=== PATIENT | female | born 1960 | race Caucasian/White ===

== ENCOUNTER 2021-09-06 11:38 | Outpatient (CLI) | payer MEDICAID, SELFPAY ==
[2021-09-06 12:28] LABS: Absolute Lymphocyte Count 1.45 X10^3/uL (0.83-4.51); Absolute Neutrophil Count 5.4 X10^3/uL (2.0-7.7); Basophil# 0.04 X10^3/uL; Basophil% 0.5 % (0-1); Eosinophil# 0.23 X10^3/uL; Hematocrit 37.6 % (37-47); Hemoglobin 12.6 g/dL (12.0-15.0); Lymphocyte # 1.45 X10^3/ul (0.83-4.51); Mean Corp Hgb Conc 33.5 g/dL (32-36); Mean Corpuscular Hgb 30.6 pg (27.0-32.0); Mean Corpuscular Volume 91.3 fL (81-99); Mean Platelet Vol. 10.4 fl (6.2-12.0); Monocyte# 0.45 X10^3/uL; Monocyte% 5.9 % (0-10); NRBC Flagged by Analyzer 0 % (0-5); Neutrophil # 5.44 X10^3/uL (2.7-7.7); Neutrophil % 71.2 % (47-70); Platelet Count 166 K/mm3 (150-450); RBC Distribution Width CV 12.5 % (11.6-14.6); RBC Distribution Width SD 41.5 fl (35.1-43.9); Red Blood Count 4.12 M/mm3 (4.2-5.4); White Blood Count 7.6 K/mm3 (4.4-11.0)
[2021-09-06 12:55] LABS: International Normalized Ratio 0.9; Prothrombin Time (Protime)PT. 11.9 SECONDS (11.7-14.9)
[2021-09-06 13:00] LABS: ALB/GLOB Ratio 0.8 RATIO (0.9-2.4); AST(SGOT) 7 U/L (15-37); Alanine Aminotransfer ALT/SGPT 14 U/L (13-56); Albumin, Serum 3.4 g/dL (3.2-5.0); Alkaline Phosphatase 195 U/L (45-117); Anion Gap 6 (5-15); BUN 18 mg/dL (7-18); BUN/Creat Ratio 20.2 RATIO (10-20); Calcium,Total 9.4 mg/dL (8.5-10.1); Chloride 105 mmol/L (98-107); Creatinine, Serum 0.89 mg/dL (0.55-1.02); EST Glomerular Filtration Rate 68 mL/min (>60); Est Glom Filt Rate - Afr Amer 83 mL/min (>60); Globulin 4.5 g/dL (2.2-4.2); Glucose 130 mg/dL (74-106); LDH 162 U/L (84-246); Potassium 3.9 mmol/L (3.5-5.1); Protein, Total 7.9 g/dL (6.4-8.2); Sodium Level 139 mmol/L (136-145)
[2021-09-08 04:08] LABS: Albumin 3.5 g/dL (2.9-4.4); Alpha-1-Globulins 0.3 g/dL (0.0-0.4); Gamma Globulin 1.5 g/dL (0.4-1.8); Immunoglobulin A 452 mg/dL (87-352); Immunoglobulin G 1428 mg/dL (586-1602); Immunoglobulin M 112 mg/dL (26-217); PROEL- TOTAL PROTEIN 7.5 g/dL (6.0-8.5)
[2021-09-08 08:27] LABS: AFP, Tumor Marker 3.1 ng/mL (0.0-9.2); Carbohydrate Ag 19-9 2261 72 U/mL (0-35); Carcinoembryonic Antigen 2139 8.8 ng/mL (0.0-4.7)
== END 2021-09-06 23:59 | disposition home or self-care (01) ==
LOC: LAB 11:40
PROVIDERS: PCP Student in an Organized Health Care Education/Training Program; Referring Provider Internal Medicine Gastroenterology; Visit Provider Internal Medicine Gastroenterology
DX: R16.0 Hepatomegaly, not elsewhere classified (principal)
CPT/HCPCS: 36415; 80053; 82105; 82378; 82784; 83615; 84165; 85025; 85610; 86300; 86301; 86304; 86334

== ENCOUNTER → 2021-09-13 | Outpatient (CLI) | payer MEDICAID, SELFPAY ==
[2021-09-13] VITALS (13 sets, daily range): BP systolic 132–219; BP diastolic 60–103; PULSE 74–109; RESP 16–29; TEMP 36.3; O2SAT 93–99; BMI 32.8
--- NOTE | 2021-09-13 | IMM_PTH ---
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 Mateo Randhawa DO : 1960 BED: DIS: 09/13/2021 SPEC #: [id number] RECD: 09/14/21 12:47 STATUS: MARI REQ #: [id number] SMILEY: 09/13/21 00:[address]: Mateo Randhawa DEPT: IMMUNOHISTOCHEMISTRY RECD BY: Doris Dawn ENTERED: 09/14/21 12:49 SP TYPE: IMMUNO OTHR DR: Dr. Calin Devries DO Tissues: Liver, NOS Procedures: RCC (add) MSH2 (add) MLH-1 (add) MSH6 (add) Anti-PMS2 (add) NAPSIN A (add) CA-125 (add) CK20 (add) CK5-6 (add) CK7 (add) CK8 (add) DIAZ-2 (add) E-CAD (add) HEP PAR (add) HER2 KARIE (add) KI-67 (add) MAMM (add) P53 (add) HI (add) TTF1 (add) Pankeratin (add) GATA3 (add) P40 (add) CDX2 (add) ER (initial) PHYSICIAN & [place] [id number] SPECIMEN INFORMATION: Tissue Source: Left lobe of liver Clinical Info: Liver mass Specimen Number: [id number] CPT code: 00531, 31131 x24 METHODOLOGY: Deparaffinized sections of prefer/formalin-fixed tissue or PAP/DQ stained slides are incubated with monoclonal/polyclonal antibodies/oligonucleotide probes. Localization is made via biotin free immunoperoxidase method. Appropriate controls are performed and reacted as expected. Results on target cell population are indicated in the following table: RESULTS: ANTIBODY / CLONE RESULT ER (6F11) negative HI (1E2) negative Her-2neu (CB11) negative E-Cad (ECH-6) positive Mammaglobin (31A5) negative GATA3 (L50-823) negative AE1-3 (AE1/AE3/PCK26) positive CK7 (OV-TL12/30) positive CK8 (87rmzwC39) positive CK20 (KS20.8) negative DIAZ-2 (SP21) positive CDX2 (IUQ5789L) negative TTF-1 (8G7G3/1) negative Napsin A (Rabbit Polyclonal) negative HepPar (OCh1E5) negative RCC (PN-15) negative CK5-6 (D5 & 1684) positive P40 (BC28) positive CA125 (OC125) positive Ki-67 (30-9) positive, low These tests were developed and their performance characteristics determined by [facility]. They may not have been cleared or approved by the U.S. Food and Drug Administration. The FDA has determined that such clearance or approval is not necessary. The above immunohistochemical/dualISH markers are ordered and reviewed by the Pathologist. INTERPRETATION: Liver mass, CT-guided core biopsy: Non-small cell carcinoma, favor adenocarcinoma with squamous differentiation. See comment. SJ:rg 09/15/2021 Comment: IHC profile is non-contributory for primary site of origin. Case has been reviewed in consultation with Dr. Joiner who concurs with the above diagnosis. IDC:AM ADDENDUM ADDENDUM ADDENDUM ADDENDUM ADDENDUM ADDENDUM ADDENDUM ADDENDUM ADDENDUM ADDENDUM ADDENDUM ADDENDUM ADDENDUM ADDENDUM ADDENDUM ADDENDUM ADDENDUM ADDENDUM 10/06/2021 10:29 ADDENDUM 10/06/2021 10:29 ADDENDUM 10/06/2021 10:29 ADDENDUM 10/06/2021 10:29 ADDENDUM 10/06/2021 10:29 ANTIBODY / CLONE RESULT Her-2neu (CB11) negative (0) MLH-1 (M1) positive MSH2 (25D12) positive MSH6 (44) positive PMS2 (JPN4833) positive Ki-67 (30-9) positive, low P53 (DO-7) positive, weak, ~15% The above immunohistochemical/dualISH markers are ordered by Dr. Godfrey and reviewed by the pathologist. Liver mass, CT-guided core biopsy: Result of Microsatellite Instability Study: Negative (no loss of mismatch protein; no microsatellite instability detected). SJ:juan a 10/06/2021
[2021-09-13 08:26] LABS: Platelet Count 194 K/mm3 (150-450)
[2021-09-13 08:56] LABS: International Normalized Ratio 0.9; Prothrombin Time (Protime)PT. 12.3 SECONDS (11.7-14.9)
[2021-09-13 08:57] LABS: Partial Thromboplast Time 25.1 Seconds (24.1-36.2)
--- NOTE | 2021-09-13 10:40 | CT_ITS ---
PROCEDURE: Percutaneous CT-guided biopsy of left lobe of the liver mass biopsy. DATE OF EXAMINATION: 09/13/2021 INDICATION: 60-year-old female with a low attenuation ill-defined lesion in the left lobe of the liver. PHYSICIAN: Geena Rhoades MD RADIATION DOSAGE (If Supplied By Facility): CTDIvol = (22.12) mGy, DLP = (1201.72) mGycm CONSENT: The risks, benefits and alternatives to the procedure were explained to the patient, and the patient agreed to the procedure and signed the consent. SEDATION: Versed 2 mg and Fentanyl 100 mcg intravenous. ZOFRAN 4 mg intravenous. STERILE BARRIER TECHNIQUE: The following sterile barrier precautions were used during the procedure: hand hygiene; use of 2% chlorhexidine aseptic; use of a cap, mask, sterile gown, sterile gloves, sterile full body drape, and a large sterile sheet. PROCEDURE/TECHNIQUE: (All elements of maximal sterile barrier technique followed, including US elements as applicable) The risks, benefits, and alternatives to the procedure were explained to patient, and the patient agreed to the procedure and signed a consent form for the procedure. The patient was placed supine on the CT scan table. A timeout was performed to confirm the patient''s identity, the type of procedure, to be performed and the site of entry. Contiguous axial CT scanner images of the liver were obtained and the low-attenuation lesion in the left lobe of the liver was identified. Access site was marked on the patient''s skin after which the overlying skin was prepared in standard, sterile fashion. The skin was anesthetized with 2% lidocaine and a small skin incision was made. Under CT fluoroscopic guidance a 17-gauge coaxial introducer needle was intermittently advanced into the mass. An 18 gauge coaxial core biopsy needle was then inserted through the needle and 2 core biopsy specimens were obtained and evaluated by the pathologist on site, 2 additional core biopsy specimens were obtained, placed in formalin and sent to the lab for analysis. Gelfoam embolization of the biopsy site and access tract was performed after which the access needle was removed and sterile dressing was applied. Follow-up evaluation demonstrated no evidence of complications. The patient tolerated the procedure well with no immediate complications and was transferred to recovery in stable condition. CT/Biopsy/Inj or Needle Placement IMPRESSION: Technically successful percutaneous CT guided liver mass biopsy, Four 18-gauge core biopsy specimens obtained and sent to lab for analysis. Electronically Signed: Richi Rhoades MD at 11:52 EDT ,
[2021-09-13] MEDS: Midazolam 2 MG/2 ML Syringe IV ×2 (10:46→11:15)
[2021-09-13] MEDS: fentaNYL 100 MCG/2 ML Ampul IV ×2 (10:47→11:17)
--- NOTE | 2021-09-13 11:00 | ASPIGT_PTH ---
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 Mateo Randhawa DO : 1960 BED: DIS: 09/13/2021 SPEC #: [id number] RECD: 09/13/21 11:30 STATUS: MARI ROBERTO #: [id number] SMILEY: 09/13/21 11:[address]: Mateo Randhawa DEPT: SURGICAL PATHOLOGY RECD BY: Beatriz Francois ENTERED: 09/13/21 12:00 SP TYPE: ASP RAD OT DR: Dr. Calin Devries DO Tissues: Liver, NOS Procedures: FNA Specimen Adequacy Special Stain Group II Surgery Specimen Level IV Imprint (control) Cytology Other HEADER OPERATION: CT-guided liver biopsy PRE-OP DIAGNOSIS: Liver mass TISSUE SUBMITTED: Left lobe liver 18-gauge core x4 MICROSCOPIC DIAGNOSIS Liver mass, CT-guided core biopsy: Non-small cell carcinoma, favor adenocarcinoma with squamous differentiation. See comment. FEDERICO:juan a 09/14/2021 COMMENT The specimen is evaluated at the time of biopsy by Dr. Zhong. Immediate Evaluation = Atypical cells noted. Immunohistochemistry ([id number]) supports the above diagnosis and noncontributory for primary site of origin. Correlation with clinical, radiologic findings and appropriate follow up are necessary. This case was reviewed and diagnosis discussed with Dr. Godfrey on 10/04/2021. Case has been reviewed in consultation with Dr. Joiner who concurs with the above diagnosis. IDC:AM MICROSCOPIC DESCRIPTION Slides are reviewed. GROSS DESCRIPTION Received in fixative is one container labeled with the patient's name and designated liver mass biopsy. The specimen consists of four elongated fragments of greene soft tissue measuring 1.5 to 2 cm in length and 0.1 cm in diameter. The specimen is totally submitted in one cassette. Two touch imprints are prepared at the time of core biopsy. / FEDERICO:juan a 09/13/2021 TC:0 CPT: 16952, 40602
[2021-09-13] MEDS: Lidocaine 2% (20 ml mdv) 20 ML Vial INFILT (11:05)
[2021-09-13] MEDS: Ondansetron 4 MG/2 ML Vial IV (11:20)
== END | disposition home or self-care (01) ==
LOC: CT 08:15
PROVIDERS: PCP Student in an Organized Health Care Education/Training Program; Referring Provider Internal Medicine Gastroenterology; Visit Provider Internal Medicine Gastroenterology
DX: C22.9 Malignant neoplasm of liver, not specified as primary or secondary (principal); K74.3 Primary biliary cirrhosis; F17.200 Nicotine dependence, unspecified, uncomplicated
CPT/HCPCS: 47000; 36415; 77012; 85049; 85610; 85730; 88161; 88172; 88305; 88313; 88341; 88342; 99156; 99157; J7040; A4216; J2405

== ENCOUNTER 2021-10-05 12:55 | Inpatient (IN) | payer MEDICAID, SELFPAY ==
[2021-10-05] VITALS (7 sets, daily range): BP systolic 116–125; BP diastolic 61–66; PULSE 93–120; RESP 16–22; TEMP 36.7–38.2; O2SAT 93–96; BMI 33.3; BMI 31.2
--- NOTE | 2021-10-05 13:37 | EDS_ITS ---
HPI History of Present Illness Chief Complaint: Confusion Narrative Narrative: 61-year-old female presenting with her daughter because her daughter feels that she is weaker than usual. Her daughter states that she seems a little disoriented. She states her mother is not getting up and moving as much as she should. She is sitting in a chair and seems to be falling asleep. The patient herself has a history of liver cancer. She has seen Dr. Randhawa and they did obtain a CT-guided biopsy. She is seen by Dr. Godfrey as well. She is supposed to get imaging in the next couple of weeks and then on the they will determine whether or not they are going to do surgery to remove this mass. The patient states that the mass is either inside or outside the liver. She states that the mass is outside the liver they would not be able to do surgery. Patient reports that she had a little bit of abdominal pain because she was constipated secondary to Zofran but has had bowel movements. She has been able to eat small amounts. She denies fever or chills. She is currently not nauseous. Her daughter reports that her mother seems a little bit more yellow than usual. 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 Cirrhosis Hypothyroidism Schizophrenia Smoker Home Medications atorvastatin 40 mg PO QHS 01/11/15 [History Last Taken 09/12/21] carbamazepine 200 mg PO BIDCM 01/11/15 [History Last Taken 04/07/15 04:30 200 MG] cholecalciferol (vitamin D3) 10,000 unit PO DAILY 01/11/15 [History Last Taken Unknown] ibuprofen 400 mg PO Q6H PRN PRN 01/11/15 [History Last Taken Unknown] latanoprost 1 drp EACH EYE QHS 01/11/15 [History Last Taken Unknown] levothyroxine 175 mcg PO MOTUWETHFR 01/11/15 [History Last Taken 04/07/15 04:30 150 MCG] topiramate 25 mg PO QHS 01/11/15 [History Last Taken Unknown] acidophilus-sporogenes [Acidophilus Ex Str (L. sporog)] 1 tab PO DAILY 09/13/21 [History Last Taken Unknown] benztropine 0.5 mg PO DINNER 09/13/21 [History Last Taken Unknown] benztropine 1 mg PO DAILY 09/13/21 [History Last Taken Unknown] oxybutynin chloride 10 mg PO DINNER 09/13/21 [History Last Taken Unknown] pantoprazole 40 mg PO DAILY 09/13/21 [History Last Taken Unknown] potassium chloride 20 meq PO TID 09/13/21 [History Last Taken Unknown] ziprasidone HCl 20 mg PO BID 09/13/21 [History Last Taken Unknown] ziprasidone HCl 80 mg PO BIDCM 09/13/21 [History Last Taken Unknown] levothyroxine 87.5 mcg PO SUSA 10/05/21 [History Last Taken Unknown] mirtazapine 15 mg PO QHS PRN 10/05/21 [History Last Taken Unknown] morphine [MS Contin] 15 mg PO Q12H PRN 10/05/21 [History Last Taken Unknown] promethazine 25 mg PO Q6H PRN 10/05/21 [History Last Taken Unknown] sennosides [senna] 8.6 mg PO BID 10/05/21 [History Last Taken Unknown] ursodiol 500 mg PO BID 10/05/21 [History Last Taken Unknown] Allergy/AdvReac Type Severity Reaction Status Date / Time codeine AdvReac Other Verified 10/05/21 12:56 naproxen [From Naprosyn] AdvReac Other Verified 01/10/17 23:06 Surgical History History of cholecystectomy Social History household members: none housing: apartment Smoking Status: Former smoker ROS ROS ED ROS Narrative Generalized fatigue Constitutional Constitutional ED: Denies chills or fever(s) Eyes Eyes: Reports other Details: Scleral icterus ; Denies blurry vision ENT ENT ED: Denies rhinorrhea or sore throat Cardiovascular Cardiovascular: Denies chest pain or palpitations Respiratory/Chest Respiratory/Chest: Denies cough or dyspnea Gastrointestinal Gastrointestinal: Denies abdominal pain, constipation or nausea Musculoskeletal Musculoskeletal: Denies back pain or neck pain Integumentary Reports other Details: Jaundice ; Denies rash Neurologic Neurologic: Denies headache(s) or weakness Psychiatric Psychiatric: Denies anxiety or depression EXAM Physical Exam Const Vital Signs: 10/05/21 12:56 10/05/21 13:07 10/05/21 13:09 Temperature 100.8 F H 99.6 F H Temperature Source Temporal Temporal Pulse Rate 120 H Respiratory Rate 18 Respiratory Effort Normal Non-Labored Respiratory Pattern Normal Blood Pressure 118/65 Blood Pressure Mean 82 Pulse Ox 93 Oxygen Delivery Method Room Air 10/05/21 15:45 Temperature 98.2 F Temperature Source Oral Pulse Rate 103 H Respiratory Rate 22 H Respiratory Effort Respiratory Pattern Blood Pressure 117/61 Blood Pressure Mean 79 Pulse Ox 93 Oxygen Delivery Method Room Air Positive obese General Appearance ED: NAD; Negative for pallor Nutritional Appearance: obese HEENT Reports moist mucous membranes Negative for trauma Eyes PERRL and EOMs intact bilaterally General Eye ED: Yes scleral icterus Neck supple Resp normal respiratory effort and clear to auscultation bilaterally Cardio regular rate GI normal to inspection, nondistended, normoactive bowel sounds Extremity normal to inspection General Extremety ED: Negative for edema or tenderness General Extremity: Negative for edema Neuro oriented x3 and CN's II-XII intact bilaterally Sensorium / Orientation: alert Psych mental status grossly normal Skin no rashes or lesions noted and no wounds General Skin Exam: jaundice; Negative for pallor MDM MDM MDM Narrative Medical decision making narrative: Patient presenting with generalized weakness. She has no specific complaints other than feeling tired. Her daughter reports she is more jaundiced and has more scleral icterus. She has concerned that she is confused although she is alert and oriented x3. Initial temperature was 100.8 temporally however her oral temperature was 99 6. Repeat oral temperature was 98 2. She received nothing for fever. Patient slightly tachycardic on arrival. Her heart rate is down to 103. Her CBC shows that she has no significant leukocytosis. Her white blood cell count is 10.7. Hemoglobin is down to 10.7. Hematocrit 31.9. Platelets 105. Both her anemia and thrombocytopenia are new. INR is normal. The patient's total bilirubin is elevated at 12.60, direct bilirubin 10.12, AST 94, ALT 63, alkaline phosphatase 974. I discussed the patient's case with Dr. Randhawa who had concern for portal vein thrombosis worsening her symptoms. He recommended the CTA of the abdomen pelvis to see if there were dilated biliary ducts. After discussion we determined we would do a CTA of the chest abdomen pelvis as the patient has cancer and is tachycardic. He does not report any chest pain. Dr. Randhawa also wanted to cover her with vancomycin and Zosyn which was ordered. His CTA of the abdomen pelvis shows a heterogeneous appearance of the liver with dilated intrahepatic biliary ducts. Mass lesion seen in the left lobe of liver which was recently biopsied. No evidence of a aortic dissection or pulmonary emboli. I spoke with Dr. Hanson and Dr. Friend. He wants to get an MRCP and possibly do an ERCP in the hospital. Patient discussed with hospitalist for admission. Impression: 1. Cholangiocarcinoma 2. Transaminitis 3. Hyperammonemia 4. Anemia 5. Thrombocytopenia 6. Jaundice 7. Scleral icterus 8. Generalized weakness Lab Data Attestation: I reviewed the patient's lab results. Labs: Laboratory Results - last 24 hr 10/05/21 10/05/21 10/05/21 13:40 13:40 13:40 WBC 10.7 RBC 3.51 L Hgb 10.7 L Hct 31.9 L MCV 90.9 MCH 30.5 MCHC 33.5 RDW Std Deviation 47.2 H RDW Coeff of Russell 14.1 Plt Count 105 L MPV 10.6 Immature Gran % (Auto) 0.500 Neut % (Auto) 86.2 H Lymph % (Auto) 3.9 L [place] % (Auto) 9.2 Eos % (Auto) 0.0 Baso % (Auto) 0.2 Absolute Neuts (auto) 9.2 H Absolute Lymphs (auto) 0.42 L Nucleated RBC % 0 Differential Comment Platelet Estimate SLT DEC RBC Morphology NORM C+C PT INR Sodium 132 L Potassium 3.8 Chloride 100 Carbon Dioxide 23.0 Anion Gap 9 BUN 17 Creatinine 1.03 H Estim Creat Clear Calc 46.85 Est GFR (MDRD) Af Amer 70 Est GFR (MDRD) Non-Af 58 L BUN/Creatinine Ratio 16.5 Glucose 155 H Calcium 9.3 Total Bilirubin 12.60 H Direct Bilirubin 10.12 H AST 94 H ALT 63 H Alkaline Phosphatase 974 H Ammonia 44.0 H Total Protein 7.6 Albumin 2.0 L Globulin 5.6 H Lipase 41 L Urine Color Urine Clarity Urine pH Ur Specific [place] Urine Protein Urine Glucose (UA) Urine Ketones Urine Occult Blood Urine Nitrite Urine Bilirubin Urine Urobilinogen Ur Leukocyte Esterase Urine RBC Urine WBC Ur Squamous Epith Cells Urine Bacteria Urine Mucus 10/05/21 10/05/21 13:40 15:00 WBC RBC Hgb Hct MCV MCH MCHC RDW Std Deviation RDW Coeff of Russell Plt Count MPV Immature Gran % (Auto) Neut % (Auto) Lymph % (Auto) [place] % (Auto) Eos % (Auto) Baso % (Auto) Absolute Neuts (auto) Absolute Lymphs (auto) Nucleated RBC % Differential Comment Platelet Estimate RBC Morphology PT 17.6 H INR 1.5 Sodium Potassium Chloride Carbon Dioxide Anion Gap BUN Creatinine Estim Creat Clear Calc Est GFR (MDRD) Af Amer Est GFR (MDRD) Non-Af BUN/Creatinine Ratio Glucose Calcium Total Bilirubin Direct Bilirubin AST ALT Alkaline Phosphatase Ammonia Total Protein Albumin Globulin Lipase Urine Color Ashley Urine Clarity Sl. Cloudy Urine pH 6.5 Ur Specific [place] 1.010 Urine Protein 30 H Urine Glucose (UA) Normal Urine Ketones 5 H Urine Occult Blood 25 H Urine Nitrite Negative Urine Bilirubin 6 H Urine Urobilinogen 8 H Ur Leukocyte Esterase 25 H Urine RBC 0 SEEN Urine WBC 10-25 SEEN Ur Squamous Epith Cells 0-5 SEEN Urine Bacteria 1+ Urine Mucus 0 SEEN Radiography Diagnostic Testing: Clinical Impression(s) from Imaging Studies Chest/Abdomen/Pelvis CTA 10/05/21 15:30 IMPRESSION: Heterogeneous appearance of the liver with dilated intrahepatic biliary ducts. Mass lesion seen in the left lobe of liver which was recently biopsied. No evidence of a aortic dissection. Electronically Signed: Jaxon Vera MD at 15:54 EDT , Discharge Plan Triage Chief Complaint: Confusion ED Provider: Alex Sanderson Dx/Rx/DC Orders Prescriptions: No Action latanoprost 1 DROP bottle 1 drp Each Eye QHS RF: 0 atorvastatin 80 MG tablet 40 mg PO QHS RF: 0 topiramate 25 MG tablet 25 mg PO QHS RF: 0 carbamazepine 200 MG tablet 200 mg PO BIDCM RF: 0 levothyroxine 150 MCG tablet 175 mcg PO MOTUWETHFR RF: 0 ibuprofen 200 MG tablet 400 mg PO Q6H PRN PRN (Reason: Mod-Severe (Pain Scale 6-10)) RF: 0 cholecalciferol (vitamin D3) 5,000 UNIT capsule 10,000 unit PO DAILY RF: 0 ziprasidone HCl 80 mg Capsule 80 mg PO BIDCM RF: 0 benztropine 0.5 mg Tablet 0.5 mg PO DINNER RF: 0 ziprasidone HCl 20 mg Capsule 20 mg PO BID RF: 0 pantoprazole 40 mg Tablet,Delayed Release (Dr/Ec) 40 mg PO DAILY RF: 0 benztropine 1 mg Tablet 1 mg PO DAILY RF: 0 oxybutynin chloride 5 mg Tablet Extended Release 24hr 10 mg PO DINNER RF: 0 Acidophilus Ex Str (L. sporog) 35 million- 25 million cell Tablet 1 tab PO DAILY RF: 0 potassium chloride 20 mEq Tablet Extended Release 20 meq PO TID RF: 0 levothyroxine 175 mcg Tablet 87.5 mcg PO SUSA RF: 0 sennosides [senna] 8.6 mg Tablet 8.6 mg PO BID RF: 0 promethazine 25 mg Tablet 25 mg PO Q6H PRN (Reason: Nausea) RF: 0 morphine [MS Contin] 15 mg Tablet Extended Release 15 mg PO Q12H PRN (Reason: Pain) RF: 0 mirtazapine 15 mg Tablet 15 mg PO QHS PRN (Reason: Insomnia) RF: 0 ursodiol 500 mg Tablet 500 mg PO BID RF: 0 Primary Care Provider: Calin Devries
[2021-10-05 13:59] LABS: Absolute Lymphocyte Count 0.42 X10^3/uL (0.83-4.51); Absolute Neutrophil Count 9.2 X10^3/uL (2.0-7.7); Basophil# 0.02 X10^3/uL; Basophil% 0.2 % (0-1); Hematocrit 31.9 % (37-47); Hemoglobin 10.7 g/dL (12.0-15.0); Lymphocyte # 0.42 X10^3/ul (0.83-4.51); Lymphocyte % 3.9 % (19-41); Mean Corp Hgb Conc 33.5 g/dL (32-36); Mean Corpuscular Hgb 30.5 pg (27.0-32.0); Mean Corpuscular Volume 90.9 fL (81-99); Mean Platelet Vol. 10.6 fl (6.2-12.0); Monocyte# 0.98 X10^3/uL; Monocyte% 9.2 % (0-10); NRBC Flagged by Analyzer 0 % (0-5); Neutrophil # 9.23 X10^3/uL (2.7-7.7); Neutrophil % 86.2 % (47-70); POSITIVE DIFFERENTIAL YES; Platelet Count 105 K/mm3 (150-450); RBC Distribution Width CV 14.1 % (11.6-14.6); RBC Distribution Width SD 47.2 fl (35.1-43.9); Red Blood Count 3.51 M/mm3 (4.2-5.4); White Blood Count 10.7 K/mm3 (4.4-11.0)
[2021-10-05 14:05] LABS: Differential Indicated SCAN CRITERIA MET
[2021-10-05 14:24] LABS: AST(SGOT) 94 U/L (15-37); Alanine Aminotransfer ALT/SGPT 63 U/L (13-56); Alkaline Phosphatase 974 U/L (45-117); Anion Gap 9 (5-15); BUN 17 mg/dL (7-18); BUN/Creat Ratio 16.5 RATIO (10-20); Bilirubin, Direct 10.12 mg/dL (0.00-0.30); Calcium,Total 9.3 mg/dL (8.5-10.1); Chloride 100 mmol/L (98-107); Creatinine, Serum 1.03 mg/dL (0.55-1.02); EST Glomerular Filtration Rate 58 mL/min (>60); Est Glom Filt Rate - Afr Amer 70 mL/min (>60); Estimated Creatinine Clearance 46.85 ml/min; Globulin 5.6 g/dL (2.2-4.2); Glucose 155 mg/dL (74-106); Lipase 41 U/L (73-393); Potassium 3.8 mmol/L (3.5-5.1); Protein, Total 7.6 g/dL (6.4-8.2); Sodium Level 132 mmol/L (136-145)
[2021-10-05 14:26] LABS: Platelet Estimate SLT DEC (ADEQ)
[2021-10-05 14:27] LABS: Red Cell Morphology NORM C+C NORMAL (NORM C&C)
[2021-10-05 15:11] LABS: Mucous, Urine 0 SEEN /hpf (<or=2+); Red Blood Cells-Urine 0 SEEN /hpf (0-5)
[2021-10-05 15:29] LABS: Color, Urine Amber (Yellow); Glucose, Dipstick Normal (Normal); Ketone-Dipstick 5 mg/dl (Negative); Leukocyte Esterase-Dipstick 25 /ul (Negative); Nitrite-Dipstick Negative (Negative); Occult Blood-Urine 25 /ul (Negative); Protein-Dipstick 30 mg/dl (Negative); Urine Bilirubin Dipstick 6 mg/dL (Negative); Urine Clarity Sl. Cloudy (Clear); Urine Urobilinogen 8 mg/dl (Normal); Urine pH 6.5 (5.0 - 8.0)
--- NOTE | 2021-10-05 15:30 | CT_ITS ---
STUDY: CTA CHEST AND CTA ABDOMEN/PELVIS WITH CONTRAST REASON FOR EXAM: Female, 61 years old. Abdominal pain no new hepatic mass and prior biopsy of the liver. RADIATION DOSAGE (If Supplied By Facility): CTDIvol = ( 14.17 ) mGy, DLP = ( 1090.16 ) mGycm TECHNIQUE: The examination was performed with the intravenous administration of IV 100mL Isovue-370. Post-processing of the angiographic images was performed, with multiplanar reformation and 3D reconstruction. Individualized dose optimization techniques were used for this CT. COMPARISON: No relevant priors. FINDINGS: CTA Chest Normal enhancement of the main pulmonary artery and right and left pulmonary arteries. Normal enhancement of the bilateral peripheral pulmonary arteries. There is no demonstrated pulmonary embolism. There is atherosclerotic calcification of the aortic arch with tortuosity. There is no demonstrated aortic dissection. There are calcifications of the coronary arteries. Normal mediastinum. Normal hilar regions. Normal visualized trachea and bronchi. The lungs are well expanded. Mild degree of increased markings at the lung bases suggestive of either linear atelectasis and/or scarring. Normal pleura. Normal chest wall structures. There are degenerative changes of thoracic spine. CT Abdomen T Pelvis Heterogeneous appearance of the liver. Dilated intrahepatic biliary ducts. Heterogeneous mass with focal calcification in the region of the left lobe of the liver. This measures approximately 3.7 cm x 4.2 sinus. This mass was recently biopsied. The gallbladder is not visualized and most likely secondary to prior cholecystectomy. Normal spleen. Heterogeneous appearance of the pancreas. Normal bilateral adrenal glands. Normal right kidney. Normal left kidney. Normal visualized stomach. Normal small intestine. Moderate amount of fecal material seen in the colon down to the The appendix is visualized and appears normal. There is diffuse atherosclerotic calcification of the abdominal aorta, without a demonstrated aneurysm. Normal inferior vena cava. Normal retroperitoneum. Normal urinary bladder. Normal abdominal wall. There are diffuse degenerative changes of the visualized lumbar spine. CT/CTA Chst, Abd, Pel W and/or WO IMPRESSION: Heterogeneous appearance of the liver with dilated intrahepatic biliary ducts. Mass lesion seen in the left lobe of liver which was recently biopsied. No evidence of a aortic dissection. Electronically Signed: Jaxon Vera MD at 15:54 EDT ,
[2021-10-05 15:33] LABS: International Normalized Ratio 1.5; Prothrombin Time (Protime)PT. 17.6 SECONDS (11.7-14.9)
[2021-10-05 15:48] LABS: Bacteria 1+ /hpf (None Seen); Squamous Epithelial Cells - UA 0-5 SEEN /hpf (5-10); White Blood Cells 10-25 SEEN /hpf (0-5)
--- NOTE | 2021-10-05 17:44 | NURSING ---
MED SURG OBS TERELETSKY TRANSAMINITIS, HYPERAMMONEMIA, LIVER CA
[2021-10-05] MEDS: Lactulose 20 GM/30 ML UDC PO (18:05)
--- NOTE | 2021-10-05 18:17 | PCM.HP.STD ---
Documented by User: MICHAELA Knutson 10/05/21 18:32 HPI - General General Date of Admission: 10/05/21 Date of Service: 10/05/21 Chief Complaint: Jaundice, confusion HPI Narrative KALE STREETER, is a 61 F who presents with complaints of generalized weakness and worsening jaundice. Patient's daughter was also concerned that she appeared confused when she saw her prior to bringing her in the ER. Patient was recently diagnosed with a adenocarcinoma of the liver and is currently going through a work-up with Dr. Godfrey as well as Dr. Randhawa. Patient reports that for history includes bipolar depression, hyperlipidemia, hypothyroidism, GERD, cirrhosis. Patient states that she has had cirrhosis since 2014 and recently started following with Dr. Randhawa as her prior GI physician had retired. Patient states that she has not currently having abdominal pain. 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 Cirrhosis Hypothyroidism Schizophrenia Smoker Home Medications atorvastatin 40 mg PO QHS 01/11/15 [History Last Taken 09/12/21] carbamazepine 200 mg PO BIDCM 01/11/15 [History Last Taken 04/07/15 04:30 200 MG] cholecalciferol (vitamin D3) 10,000 unit PO DAILY 01/11/15 [History Last Taken Unknown] ibuprofen 400 mg PO Q6H PRN PRN 01/11/15 [History Last Taken Unknown] latanoprost 1 drp EACH EYE QHS 01/11/15 [History Last Taken Unknown] levothyroxine 175 mcg PO MOTUWETHFR 01/11/15 [History Last Taken 04/07/15 04:30 150 MCG] topiramate 25 mg PO QHS 01/11/15 [History Last Taken Unknown] acidophilus-sporogenes [Acidophilus Ex Str (L. sporog)] 1 tab PO DAILY 09/13/21 [History Last Taken Unknown] benztropine 0.5 mg PO DINNER 09/13/21 [History Last Taken Unknown] benztropine 1 mg PO DAILY 09/13/21 [History Last Taken Unknown] oxybutynin chloride 10 mg PO DINNER 09/13/21 [History Last Taken Unknown] pantoprazole 40 mg PO DAILY 09/13/21 [History Last Taken Unknown] potassium chloride 20 meq PO TID 09/13/21 [History Last Taken Unknown] ziprasidone HCl 20 mg PO BID 09/13/21 [History Last Taken Unknown] ziprasidone HCl 80 mg PO BIDCM 09/13/21 [History Last Taken Unknown] levothyroxine 87.5 mcg PO SUSA 10/05/21 [History Last Taken Unknown] mirtazapine 15 mg PO QHS PRN 10/05/21 [History Last Taken Unknown] morphine [MS Contin] 15 mg PO Q12H PRN 10/05/21 [History Last Taken Unknown] promethazine 25 mg PO Q6H PRN 10/05/21 [History Last Taken Unknown] sennosides [senna] 8.6 mg PO BID 10/05/21 [History Last Taken Unknown] ursodiol 500 mg PO BID 10/05/21 [History Last Taken Unknown] Allergy/AdvReac Type Severity Reaction Status Date / Time codeine AdvReac Other Verified 10/05/21 12:56 naproxen [From Naprosyn] AdvReac Other Verified 01/10/17 23:06 Surgical History History of cholecystectomy Social History household members: none housing: apartment Smoking Status: Former smoker ROS Constitutional Constitutional: Denies anorexia, chills, fatigue, fever(s), malaise or weakness Eyes Eyes: Reports other Details: Daughter reports increased pleural icterus Cardiovascular Cardiovascular: Denies chest pain, edema, palpitations or syncope Respiratory/Chest Respiratory/Chest: Denies cough, shortness of breath at rest, shortness of breath with exertion or wheezing Gastrointestinal Gastrointestinal: Reports change in bowel habits Genitourinary Genitourinary: Denies dysuria Musculoskeletal Musculoskeletal: Denies back pain, extremity pain, joint pain, joint stiffness or joint swelling Integumentary Integumentary: Reports other Details: Complains of white coating to tongue ; Denies dry skin Neurologic Neurologic: Denies abnormal gait, abnormal speech, confusion or dizziness Psychiatric Psychiatric: Denies anxiety or depression Endocrine Endocrinology: Denies change in body appearance Hematologic/Lymphatic Hematologic/Lymphatic: Denies anemia Vital Signs Vital Signs Vital Signs: 10/05/21 12:56 10/05/21 13:07 10/05/21 13:09 Temperature 100.8 F H 99.6 F H Temperature Source Temporal Temporal Pulse Rate 120 H Respiratory Rate 18 Respiratory Effort Normal Non-Labored Respiratory Pattern Normal Blood Pressure 118/65 Blood Pressure Mean 82 Pulse Ox 93 Oxygen Delivery Method Room Air 10/05/21 15:45 10/05/21 18:07 Temperature 98.2 F 98.2 F Temperature Source Oral Oral Pulse Rate 103 H 103 H Respiratory Rate 22 H 22 H Respiratory Effort Respiratory Pattern Blood Pressure 117/61 117/61 Blood Pressure Mean 79 79 Pulse Ox 93 93 Oxygen Delivery Method Room Air Room Air Weight Weight: 188 lb Body Mass Index (BMI) 33.3 Physical Exam Const alert, oriented x3 and no apparent distress General Appearance: cooperative HEENT normocephalic and head/scalp atraumatic Eyes Sclera: sclera abnormal Positive for bilateral (Icterus) Neck supple General: trachea midline Lymph Lymphatic: no lymphadenopathy noted Resp normal respiratory effort, normal air movement and clear to auscultation bilaterally Cardio regular rate, regular rhythm, S1 normal heart sound, S2 normal heart sound and peripheral pulses 2+ throughout GI soft to palpation Palpation: tender RUQ Extremity normal capillary refill and no clubbing, cyanosis or edema General Extremity: no tenderness to palpation of joints or extremities Skin General Skin Exam: no breakdown and turgor normal Lesions: no lesions Rashes: no rashes Neuro no focal motor deficits and no sensory deficits noted Motor Exam: Negative for general weakness Psych thought process normal, cooperative and affect normal Appearance: appropriate Results Lab / Micro Data Result Diagrams: 10/05/21 13:40 10/05/21 13:40 Labs: Laboratory Results - last 24 hr 10/05/21 13:40: WBC 10.7, RBC 3.51 L, Hgb 10.7 L, Hct 31.9 L, MCV 90.9, MCH 30.5, MCHC 33.5, RDW Std Deviation 47.2 H, RDW Coeff of Russell 14.1, Plt Count 105 L, MPV 10.6, Immature Gran % (Auto) 0.500, Neut % (Auto) 86.2 H, Lymph % (Auto) 3.9 L, Cobb % (Auto) 9.2, Eos % (Auto) 0.0, Baso % (Auto) 0.2, Absolute Neuts (auto) 9.2 H, Absolute Lymphs (auto) 0.42 L, Nucleated RBC % 0, Differential Comment , Platelet Estimate SLT DEC, RBC Morphology NORM C+C 05/11/22 13:40: Sodium 132 L, Potassium 3.8, Chloride 100, Carbon Dioxide 23.0, Anion Gap 9, BUN 17, Creatinine 1.03 H, Estim Creat Clear Calc 46.85, Est GFR (MDRD) Af Amer 70, Est GFR (MDRD) Non-Af 58 L, BUN/Creatinine Ratio 16.5, Glucose 155 H, Calcium 9.3, Total Bilirubin 12.60 H, Direct Bilirubin 10.12 H, AST 94 H, ALT 63 H, Alkaline Phosphatase 974 H, Total Protein 7.6, Albumin 2.0 L, Globulin 5.6 H, Lipase 41 L 10/05/21 13:40: Ammonia 44.0 H 10/05/21 13:40: PT 17.6 H, INR 1.5 10/05/21 15:00: Urine Color Ashley, Urine Clarity Sl. Cloudy, Urine pH 6.5, Ur Specific Markham 1.010, Urine Protein 30 H, Urine Glucose (UA) Normal, Urine Ketones 5 H, Urine Occult Blood 25 H, Urine Nitrite Negative, Urine Bilirubin 6 H, Urine Urobilinogen 8 H, Ur Leukocyte Esterase 25 H, Urine RBC 0 SEEN, Urine WBC 10-25 SEEN, Ur Squamous Epith Cells 0-5 SEEN, Urine Bacteria 1+, Urine Mucus 0 SEEN Radiology Impression Chest/Abdomen/Pelvis CTA 10/05/21 15:30 IMPRESSION: Heterogeneous appearance of the liver with dilated intrahepatic biliary ducts. Mass lesion seen in the left lobe of liver which was recently biopsied. No evidence of a aortic dissection. Electronically Signed: Jaxon Vera MD at 15:54 EDT , Assessment & Plan Assessment/Plan (1) Liver mass: (2) Hyperbilirubinemia: (3) Hyperammonemia: PLAN: 1. Chronic cirrhosis with known liver adenocarcinoma, primary versus metastatic -Admit to [facility] -Consult Dr. Randhawa, case discussed with him by ER physician -MRCP and ERCP ordered per Dr. Randhawa's instruction -CBC CMP and PT/INR ordered daily -Regular diet, n.p.o. at midnight for pending procedure with Dr. Randhawa -Case management consulted as liver adenocarcinoma is a recent diagnosis -We will continue patient's ursodiol at this time -We will continue patient's pain medication regimen including ibuprofen and morphine at this time 2. Hyperbilirubinemia -MRCP and ERCP ordered -CMP daily 3. Hyperammonemia -Patient received lactulose 20 g p.o. x1 in ER -We will recheck ammonia in a.m. 4. Bipolar disorder -We will continue patient's home medication regimen including benztropine, carbamazepine, mirtazapine, topiramate, ziprasidone as patient is currently stable on these medications 5. Hypothyroidism -Continue levothyroxine 6. Hyperlipidemia -Continue atorvastatin 7. Overactive bladder -Continue oxybutynin DVT prophylaxis-SCDs, will hold off on pharmacological prophylaxis pending probable ERCP This patient was seen by Alise Pisano NP-C under the supervision of Dr. Edgar. 31 minutes spent in clinical coordination of patient's plan of care. Documented by User: Dr. 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 Cirrhosis Hypothyroidism Schizophrenia Smoker Home Medications atorvastatin 40 mg PO QHS 01/11/15 [History Last Taken 09/12/21] carbamazepine 200 mg PO BIDCM 01/11/15 [History Last Taken 04/07/15 04:30 200 MG] cholecalciferol (vitamin D3) 10,000 unit PO DAILY 01/11/15 [History Last Taken Unknown] ibuprofen 400 mg PO Q6H PRN PRN 01/11/15 [History Last Taken Unknown] latanoprost 1 drp EACH EYE QHS 01/11/15 [History Last Taken Unknown] levothyroxine 175 mcg PO MOTUWETHFR 01/11/15 [History Last Taken 04/07/15 04:30 150 MCG] topiramate 25 mg PO QHS 01/11/15 [History Last Taken Unknown] acidophilus-sporogenes [Acidophilus Ex Str (L. sporog)] 1 tab PO DAILY 09/13/21 [History Last Taken Unknown] benztropine 0.5 mg PO DINNER 09/13/21 [History Last Taken Unknown] benztropine 1 mg PO DAILY 09/13/21 [History Last Taken Unknown] oxybutynin chloride 10 mg PO DINNER 09/13/21 [History Last Taken Unknown] pantoprazole 40 mg PO DAILY 09/13/21 [History Last Taken Unknown] potassium chloride 20 meq PO TID 09/13/21 [History Last Taken Unknown] ziprasidone HCl 20 mg PO BID 09/13/21 [History Last Taken Unknown] ziprasidone HCl 80 mg PO BIDCM 09/13/21 [History Last Taken Unknown] levothyroxine 87.5 mcg PO SUSA 10/05/21 [History Last Taken Unknown] mirtazapine 15 mg PO QHS PRN 10/05/21 [History Last Taken Unknown] morphine [MS Contin] 15 mg PO Q12H PRN 10/05/21 [History Last Taken Unknown] promethazine 25 mg PO Q6H PRN 10/05/21 [History Last Taken Unknown] sennosides [senna] 8.6 mg PO BID 10/05/21 [History Last Taken Unknown] ursodiol 500 mg PO BID 10/05/21 [History Last Taken Unknown] Allergy/AdvReac Type Severity Reaction Status Date / Time codeine AdvReac Other Verified 10/05/21 12:56 naproxen [From Naprosyn] AdvReac Other Verified 01/10/17 23:06 Surgical History History of cholecystectomy Social History household members: none housing: apartment Smoking Status: Former smoker Results Lab / Micro Data Result Diagrams: 10/05/21 13:40 10/05/21 13:40 Charges/Coding Addendum Addendum: Patient was seen and examined independently of Geno Pisano today, she came to the emergency room today at [facility] after being brought in by her daughter with complaints of intermittent confusion today, patient has been diagnosed with adenocarcinoma in her liver, she had a biopsy of this neoplasm in August of this year and she is due to follow-up with oncology regarding treatment. It is not clear if this is a primary liver cancer or a metastatic adenocarcinoma from another site. On examination she appeared in good health and spirits, she does not appear to be in any distress, patient does not appear to be confused. Vital signs as documented. Skin warm and dry and without overt rashes, patient is jaundiced. Neck without JVD, thyroid appears normal, trachea is midline, neck is supple. Lungs clear, normal air movement was noted. Heart exam notable for regular rhythm, normal sounds and absence of murmurs, rubs or gallops. Abdomen unremarkable and without evidence of organomegaly, masses, or abdominal aortic enlargement, bowel sounds are present in all 4 quadrants, no abdominal tenderness was noted. Extremities nonedematous, no cyanosis was noted, no clubbing was noted. Neuro: Cranial nerves II through XII are grossly intact, no focal motor deficits were noted, sensation to light touch and pinprick is intact, motor exam 5/5 throughout. Psych: Patient is alert and oriented x3, she does not appear anxious or depressed, she does not appear agitated. This examiner did not find the patient to be confused. Lab was obtained in the emergency room, CBC was abnormal for hemoglobin of 10.7 and a platelet count of 105,000, patient's chemistry profile showed a creatinine of 1.03, sodium of 132, and glucose of 155. Patient's liver functions were abnormal showing a bilirubin of 12.6, direct bilirubin of 10.12, AST of 94, ALT of 63, alkaline phosphatase of 974, and the patient's ammonia level was 44. Urinalysis showed 10-25 WBCs and +1 bacteria. CTA of the chest abdomen and pelvis was performed which showed a heterogeneous appearance of the liver with dilated intrahepatic biliary ducts, there was a mass lesion seen in the left lobe of the liver which measured approximately 3.7 cm x 4.2 cm. Gallbladder was not visualized secondary to prior cholecystectomy. Impression: #1 flareup of chronic cirrhosis-patient will be admitted to [facility], she will be placed on IV antibiotics, patient will undergo an MRCP and then will ultimately undergo an ERCP during this admission, gastroenterology will see the patient in consultation #2 obstructive jaundice-etiology unclear at this point, again patient will undergo an MRCP and an ERCP and be seen by gastroenterology. #3 adenocarcinoma of the liver-etiology unclear, primary versus metastatic spread, further work-up will need to be carried out on this patient #4 nonalcoholic steatohepatitis-chronic, with known cirrhosis #5 hyperlipidemia-patient is currently on atorvastatin #6 bipolar disorder-patient's medications will be continued #7 hypothyroidism-patient is on Synthroid I have reviewed Geno Pisano's history and physical including her medical assessment and plan of care and with the above additions endorse it. Total clinical time spent by myself addressing the patient's medical issues, reviewing the patient's data, and collaborating with the patient's care team: 50 minutes Visit Charges Inpatient E&M: 65180 Init Hosp L3
--- NOTE | 2021-10-05 18:20 | MRI_ITS ---
We are attempting to reach an attending provider to discuss findings. An addendum with communication details will be sent when the communication is complete. EXAM: MR ABDOMEN WITHOUT INTRAVENOUS CONTRAST, MRCP PROTOCOL CLINICAL INDICATION: Liver mass TECHNIQUE: Multiplanar and multisequence MR images of the abdomen without intravenous contrast obtained with MRCP sequence. Three-dimensional post-processing reconstructions were performed. This report was created using [employer] report generation technology. COMPARISON: CTA chest, abdomen and pelvis the same day. Described a recently biopsied mass in the left lobe of the liver. The ERCP report from April 07, 2013 describes beaded ducts similar to prior exam. Intraoperative limited exam January 18, for laparoscopic cholecystectomy mentions suggestion of sclerosing cholangitis. Distended and hypodense appearance of main portal vein on the comparison CTA. Early phase CTA exam. FINDINGS: LOWER THORAX: Unremarkable. No pleural effusion. LIVER: There are dilated intrahepatic ducts, central left hepatic duct roughly 9 mm and multiple dilated branches in the dome of the liver and central liver with irregular contour, some narrowing and dilatation distally, confirmed on correlation with prior CT the same day. Complex appearance of the periportal region and extending into the left lobe with altered signal intensity, highly suspicious for infiltrative mass involving the jeremy and at least left periportal region and main portal vein. Estimated infiltrative mass of roughly 8.8 cm craniocaudal by 6.9 cm involving the periportal region of the liver as measured on the coronal spoiled gradient echo images but this would be better evaluated by enhanced MRI with liver or pancreas protocol. GALLBLADDER AND BILE DUCTS: The common duct is not clearly seen on the CT or MRI-MRCP. PANCREAS: See above. SPLEEN: Mild hepatosplenomegaly, the right lobe is 19.8 cm in length. Borderline splenomegaly, spleen 13.8 cm craniocaudal. ADRENALS: Unremarkable. No nodules. KIDNEYS AND URETERS: Unremarkable. Normal renal size and position. No hydronephrosis. INTRAPERITONEAL SPACE: Unremarkable. No ascites or other fluid collection. VASCULATURE: There is no visible patent main portal vein on the MRI, there is some flow related signal in SMV branches and in splenic vein branch but presumed main portal vein thrombosis and/or infiltration by neoplasm. LYMPH NODES: No enlarged lymph nodes. MRI/MRCP Abdomen without Contrast IMPRESSION: 1. Exam limited to MRCP without contrast. 2. Mild hepatosplenomegaly. 3. Suspected infiltrative mass in the jeremy and left lobe of the liver with dilated and beaded ducts again noted. 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 4. 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 It is not demonstrated to be patent at the jeremy or near the pancreas. It is also retrospectively appears likely occluded on the CTA earlier today, with hypodense appearance of the main portal vein and central portal vein branches as compared to the isodense splenic vein on the CTA. Electronically Signed: Abbi Frederick MD at 21:14 EDT ,
--- NOTE | 2021-10-05 19:40 | PCM.RX.CS ---
Consult Pharmacy has been consulted to manage selected antiobiotic: Vancomycin Type of Consult: New start Suspected Infection: Other Labs: Sodium 132 mmol/L (136-145) L 10/05/21 13:40 Potassium 3.8 mmol/L (3.5-5.1) 10/05/21 13:40 Chloride 100 mmol/L (98-107) 10/05/21 13:40 Carbon Dioxide 23.0 mmol/L (21.0-32.0) 10/05/21 13:40 Anion Gap 9 (5-15) 10/05/21 13:40 BUN 17 mg/dL (7-18) 10/05/21 13:40 Creatinine 1.03 mg/dL (0.55-1.02) H 10/05/21 13:40 Est GFR (MDRD) Af Amer 70 mL/min (>60) 10/05/21 13:40 Est GFR (MDRD) Non-Af 58 mL/min (>60) L 10/05/21 13:40 BUN/Creatinine Ratio 16.5 RATIO (10-20) 10/05/21 13:40 Glucose 155 mg/dL (74-106) H 10/05/21 13:40 Goal Trough: 15-20 mcg/mL Pharmacy Plan for Drug Dosing: NEW START IV VANCOMYCIN Consulting Physician: Primitivo Pisano NP Indication: Goal Trough: 15-20 SrCr: 1.03 CrCl: 47 mL/min Comments: Had 1250mg IV x in ED 10/05/21 @1605 Vancomcyin Dose: 750mg IV Q12h to start 10/06/21 @0400 Pending Level: 10/07/21 @0330, prior to 4th total dose per protocol Pharmacy Service will continue to monitor and adjust dosing as required.
--- NOTE | 2021-10-05 21:30 | PCM.HOSP.N ---
Hospitalist Note Notified by Otoniel GRIFFIN that patient's MRCP results demonstrate main portal vein occlusion. Patient planned for ERCP with Dr. Randhawa tomorrow. Dr. Randhawa notified of findings.
[2021-10-05] MEDS: Ursodiol 250 MG Tablet 500 MG PO (21:40)
[2021-10-05] MEDS: Ziprasidone HCl 20 MG Capsule PO (21:40)
[2021-10-05] MEDS: Atorvastatin Calcium 40 MG Tablet PO (21:41)
[2021-10-05] MEDS: Potassium Chloride Oral Tablet 20 MEQ PO (21:41)
[2021-10-05] MEDS: Topiramate 25 MG Tablet PO (21:42)
[2021-10-05] MEDS: Latanoprost 0.005% 1 Bottle 1 DRP EACH EYE (21:42)
[2021-10-05] MEDS: 0.9% Saline Lock 10 ML Syringe IV (21:48)
[2021-10-06] VITALS (12 sets, daily range): BP systolic 115–168; BP diastolic 61–82; PULSE 89–107; RESP 16–18; TEMP 36.5–37.7; O2SAT 92–100; BMI 31.2
--- NOTE | 2021-10-06 | IMM_PTH ---
PATIENT: KALE STREETER LOC: MS3 U#:[id number] AGE/SX: 61/F ROOM: DE324 RE10/05/[address]: Dr. Lesvia Marrero MD : 1960 BED: 1 DIS: 10/11/2021 SPEC #: [id number] RECD: 10/07/21 12:32 STATUS: MARI REQ #: [id number] SMILEY: 10/06/21 00:[address]: Mateo Randhawa DEPT: IMMUNOHISTOCHEMISTRY RECD BY: Doris Dawn ENTERED: 10/07/21 12:34 SP TYPE: IMMUNO OTHR DR: MD Dr. Indra Bran, MD Dr. Calin Nathan Dr., MD Dr. Raudel Zhang Dr., MD Dr. Mark Tereletsky, DO Dr. Kory Hanson, Tissues: Biliary tract, NOS Procedures: RCC (add) NAPSIN A (add) CA-125 (add) CEA (add) CK14 (add) CK20 (add) CK5-6 (add) CK7 (add) CK8 (add) WERNER (add) HEP PAR (add) KI-67 (add) P53 (add) KY (add) TTF1 (add) Pankeratin (add) GATA3 (add) P40 (add) CDX2 (add) ER (initial) S-100 (add) PHYSICIAN & INSTITUTION [facility] [address] [place], [place] [address] SPECIMEN INFORMATION: Tissue Source: Biliary stricture, biopsy Clinical Info: Liver mass, primary biliary cirrhosis Specimen Number: [id number] CPT code: 17630, 75017 x20 METHODOLOGY: Deparaffinized sections of prefer/formalin-fixed tissue or PAP/DQ stained slides are incubated with monoclonal/polyclonal antibodies/oligonucleotide probes. Localization is made via biotin free immunoperoxidase method. Appropriate controls are performed and reacted as expected. Results on target cell population are indicated in the following table: RESULTS: ANTIBODY / CLONE RESULT ER (6F11) negative KY (1E2) negative GATA3 (L50-823) negative AE1-3 (AE1/AE3/PCK26) positive CK7 (OV-TL12/30) positive CK8 (87mksyJ60) positive, focal CK20 (KS20.8) negative CDX2 ([id number]) negative S-100 (4C4.9) negative TTF-1 (8G7G3/1) negative Napsin A (Rabbit Polyclonal) negative HepPar (OCh1E5) negative RCC (PN-15) negative CK5-6 (D5 & 1684) positive CK14 (LL002) positive P40 (BC28) positive WERNER (E29) positive CEA (11-7/TF-3HB-1) positive, focal CA125 (OC125) positive, rare cells P53 (DO-7) positive, 20% Ki-67 (30-9) positive, >90% These tests were developed and their performance characteristics determined by [facility]. They may not have been cleared or approved by the U.S. Food and Drug Administration. The FDA has determined that such clearance or approval is not necessary. The above immunohistochemical/dualISH markers are ordered and reviewed by the Pathologist. INTERPRETATION: Biliary stricture, biopsy: Invasive non-small cell carcinoma with extensive squamous differentiation. AM:juan a 10/10/2021 Case has been reviewed in consultation with Dr. Zhong who concurs with the above diagnosis. IDC:[id number]
[2021-10-06] MEDS: proMETHazine 25 MG Tablet PO (03:46)
[2021-10-06] MEDS: morphine SR 15 MG Tablet PO ×2 (03:49→21:34)
--- NOTE | 2021-10-06 06:00 | EKG12_ITS ---
Test Reason : AM EKG Blood Pressure : / mmHG Vent. Rate : 088 BPM Atrial Rate : 088 BPM P-R Int : 134 ms QRS Dur : 080 ms QT Int : 382 ms P-R-T Axes : 055 021 044 degrees QTc Int : 462 ms Normal sinus rhythm Normal ECG Confirmed by KHUSHI CRAWFORD, DESTINEE ([id number]), editorial writer XOCHITL WAGGONER ([id number]) on 10/06/2021 1:05:49 PM Referred By: MANJIT Confirmed By:DESTINEE PURI MD
[2021-10-06] MEDS: 0.9% Saline Lock 10 ML Syringe IV ×2 (06:10→16:26)
[2021-10-06 06:22] LABS: Absolute Lymphocyte Count 0.68 X10^3/uL (0.83-4.51); Absolute Neutrophil Count 5.4 X10^3/uL (2.0-7.7); Basophil# 0.01 X10^3/uL; Basophil% 0.1 % (0-1); Eosinophil# 0.03 X10^3/uL; Eosinophils% 0.4 % (0-5); Hematocrit 29.1 % (37-47); Hemoglobin 9.6 g/dL (12.0-15.0); Lymphocyte # 0.68 X10^3/ul (0.83-4.51); Lymphocyte % 9.9 % (19-41); Mean Corpuscular Hgb 30.5 pg (27.0-32.0); Mean Corpuscular Volume 92.4 fL (81-99); Mean Platelet Vol. 11.4 fl (6.2-12.0); Monocyte# 0.74 X10^3/uL; Monocyte% 10.7 % (0-10); NRBC Flagged by Analyzer 0 % (0-5); Neutrophil % 78.3 % (47-70); POSITIVE COUNT YES; Platelet Count 94 K/mm3 (150-450); RBC Distribution Width CV 14.3 % (11.6-14.6); RBC Distribution Width SD 48.3 fl (35.1-43.9); Red Blood Count 3.15 M/mm3 (4.2-5.4); White Blood Count 6.9 K/mm3 (4.4-11.0)
--- NOTE | 2021-10-06 06:40 | RAD_ITS ---
STUDY: ERCP. REASON FOR EXAM: Female, 61 years old. W/ SPY GLASS -- FATS FLUOROSCOPY TIME (if supplied): ( 4 minutes and 48 seconds ) minutes/seconds. 12 images were submitted. TECHNIQUE: An ERCP was performed by the network systems analyst. Imaging was obtained. COMPARISON: None. FINDINGS: Contrast was injected into the common bile duct. A balloon catheter is seen within the duct. A stent was then placed. RAD/ERCP Biliary Only IMPRESSION: Stent placement. Electronically Signed: Jaxon Vera MD at 14:46 EDT ,
[2021-10-06 06:47] LABS: International Normalized Ratio 1.7; Prothrombin Time (Protime)PT. 19.9 SECONDS (11.7-14.9)
[2021-10-06 06:58] LABS: ALB/GLOB Ratio 0.4 RATIO (0.9-2.4); AST(SGOT) 97 U/L (15-37); Alanine Aminotransfer ALT/SGPT 60 U/L (13-56); Albumin, Serum 1.8 g/dL (3.2-5.0); Alkaline Phosphatase 857 U/L (45-117); Anion Gap 7 (5-15); BUN 17 mg/dL (7-18); Calcium,Total 8.9 mg/dL (8.5-10.1); Chloride 103 mmol/L (98-107); Creatinine, Serum 0.77 mg/dL (0.55-1.02); EST Glomerular Filtration Rate 81 mL/min (>60); Est Glom Filt Rate - Afr Amer 98 mL/min (>60); Estimated Creatinine Clearance 68.17 ml/min; Globulin 4.8 g/dL (2.2-4.2); Glucose 113 mg/dL (74-106); Potassium 3.5 mmol/L (3.5-5.1); Protein, Total 6.6 g/dL (6.4-8.2); Sodium Level 134 mmol/L (136-145)
[2021-10-06 07:30] LABS: Magnesium 2.1 mg/dL (1.6-2.6); Phosphorus 2.6 mg/dL (2.5-4.9); Thyroid Stim Hormone (TSH) 0.03 uIU/mL (0.358-3.74)
--- NOTE | 2021-10-06 08:32 | PCM.RX.CS ---
Consult Type of Consult: Follow-up Suspected Infection: Other Labs: Sodium 134 mmol/L (136-145) L 10/06/21 05:43 Potassium 3.5 mmol/L (3.5-5.1) 10/06/21 05:43 Chloride 103 mmol/L (98-107) 10/06/21 05:43 Carbon Dioxide 24.0 mmol/L (21.0-32.0) 10/06/21 05:43 Anion Gap 7 (5-15) 10/06/21 05:43 BUN 17 mg/dL (7-18) 10/06/21 05:43 Creatinine 0.77 mg/dL (0.55-1.02) 10/06/21 05:43 Est GFR (MDRD) Af Amer 98 mL/min (>60) 10/06/21 05:43 Est GFR (MDRD) Non-Af 81 mL/min (>60) 10/06/21 05:43 BUN/Creatinine Ratio 22.0 RATIO (10-20) H 10/06/21 05:43 Glucose 113 mg/dL (74-106) H 10/06/21 05:43 Goal Trough: 15-20 mcg/mL Pharmacy Plan for Drug Dosing: VANCOMYCIN LEVEL RECEIVED Current Vancomycin Dose: 750mg Q12H Number of Doses Received: 2 Renal Function: sCr 0.77 (CrCl 68 mL/min) Renal Function Trend: improved Lab/Micro: pending Vancomycin Plan/Comments: Adjust Vancomycin dosing regimen to 1000mg Q12H (next dose @ 1600 10/06/21) Pending Level: Vancomycin trough @ 0330 10/07/21 Pharmacy Service will continue to monitor and adjust dosing as required. Labs to be done on [date and time ordered]: Vancomycin trough @ 0330 10/07/21
[2021-10-06 10:30] LABS: T4 Free Direct 2.03 ng/dL (0.76-1.46)
[2021-10-06 10:39] LABS: Partial Thromboplast Time 31.1 Seconds (24.1-36.2)
--- NOTE | 2021-10-06 11:00 | CASEMGMT ---
Social Work SW received referral from physician for diagnosis support. SW met with pt and dgt Modesta in room and introduced self and role of SW. Pt is laying in bed sleepy. Does open eyes to talk to SW and states she is very groggy after morphine. Pt does states her daughter has been very supportive of her and then pt doses off. SW spoke with pt dgt. Pt received new cancer diagnosis on SundayOctober 03. Per dgt, pt has had custodial liver issues and has not been feeling well since January. Dgt states pt is stubborn and did not seek medical treatment right away. Pt does live alone but dgt and sister live local. Pt is , is able to state that Modesta is very supportive of her. Modesta states pt does have a son but his is not engaged with pt. Modesta also states that pts sister and boyfriend are very supportive and assist pt with transportation to appointments and whatever else she may need. Modesta is and confirms her is also supportive and helpful. Modesta stating appointments have been set up for a PET scan and a follow up with Dr. Godfrey to discuss treatment plan. SW will remain available to offer support to pt when she is more awake. FLORIN Oliver
--- NOTE | 2021-10-06 11:08 | PN.HOSP_ITS ---
Documented by User: Darrell ZHENG 10/06/21 11:49 Subjective Subjective Patient is a 61-year-old female alert and oriented x3. Still with lethargy and diffuse jaundice, although confusion seems to have improved, per daughter. Does not appear to be in acute distress. Objective Data Objective Data Vital Signs: Vital Signs Temp Pulse Resp BP Pulse Ox 99.3 F H 89 16 115/64 92 10/06/21 09:07 10/06/21 09:07 10/06/21 09:07 10/06/21 09:07 10/06/21 09:07 Oxygen Delivery Method Room Air Weight: 187 lb 13.341 oz Body Mass Index (BMI) 31.2 Intake & Output: Intake and Output for Last 24 Hours 10/04/21 10/05/21 10/06/21 23:59 23:59 23:59 Intake Total 339.25 / 739.25 786 / 786 Balance 339.25 / 739.25 786 / 786 Lab / Micro Data Result Diagrams: 10/06/21 05:43 10/06/21 05:43 Labs: Laboratory Results - last 24 hr 10/05/21 13:40: WBC 10.7, RBC 3.51 L, Hgb 10.7 L, Hct 31.9 L, MCV 90.9, MCH 30.5, MCHC 33.5, RDW Std Deviation 47.2 H, RDW Coeff of Russell 14.1, Plt Count 105 L, MPV 10.6, Immature Gran % (Auto) 0.500, Neut % (Auto) 86.2 H, Lymph % (Auto) 3.9 L, Marengo % (Auto) 9.2, Eos % (Auto) 0.0, Baso % (Auto) 0.2, Absolute Neuts (auto) 9.2 H, Absolute Lymphs (auto) 0.42 L, Nucleated RBC % 0, Differential Comment , Platelet Estimate SLT DEC, RBC Morphology NORM C+C 10/05/21 13:40: Sodium 132 L, Potassium 3.8, Chloride 100, Carbon Dioxide 23.0, Anion Gap 9, BUN 17, Creatinine 1.03 H, Estim Creat Clear Calc 46.85, Est GFR (MDRD) Af Amer 70, Est GFR (MDRD) Non-Af 58 L, BUN/Creatinine Ratio 16.5, Glucose 155 H, Calcium 9.3, Total Bilirubin 12.60 H, Direct Bilirubin 10.12 H, AST 94 H, ALT 63 H, Alkaline Phosphatase 974 H, Total Protein 7.6, Albumin 2.0 L , Globulin 5.6 H, Lipase 41 L 10/05/21 13:40: Ammonia 44.0 H 10/05/21 13:40: PT 17.6 H, INR 1.5 10/05/21 15:00: Urine Color Ashley, Urine Clarity Sl. Cloudy, Urine pH 6.5, Ur Specific Oglesby 1.010, Urine Protein 30 H, Urine Glucose (UA) Normal, Urine Ketones 5 H, Urine Occult Blood 25 H, Urine Nitrite Negative, Urine Bilirubin 6 H, Urine Urobilinogen 8 H, Ur Leukocyte Esterase 25 H, Urine RBC 0 SEEN, Urine WBC 10-25 SEEN, Ur Squamous Epith Cells 0-5 SEEN, Urine Bacteria 1+, Urine Mucus 0 SEEN 10/06/21 05:43: WBC 6.9, RBC 3.15 L, Hgb 9.6 L, Hct 29.1 L, MCV 92.4, MCH 30.5, MCHC 33.0, RDW Std Deviation 48.3 H, RDW Coeff of Russell 14.3, Plt Count 94 L, MPV 11.4, Immature Gran % (Auto) 0.600, Neut % (Auto) 78.3 H, Lymph % (Auto) 9.9 L, Marengo % (Auto) 10.7 H, Eos % (Auto) 0.4, Baso % (Auto) 0.1, Absolute Neuts (auto) 5.4, Absolute Lymphs (auto) 0.68 L, Nucleated RBC % 0 10/06/21 05:43: PT 19.9 H, INR 1.7 10/06/21 05:43: Sodium 134 L, Potassium 3.5, Chloride 103, Carbon Dioxide 24.0, Anion Gap 7, BUN 17, Creatinine 0.77, Estim Creat Clear Calc 68.17, Est GFR (MDRD) Af Amer 98, Est GFR (MDRD) Non-Af 81, BUN/Creatinine Ratio 22.0 H, Glucose 113 H, Calcium 8.9, Total Bilirubin 11.60 H, AST 97 H, ALT 60 H, Alkaline Phosphatase 857 H, Total Protein 6.6, Albumin 1.8 L, Globulin 4.8 H, Albumin/Globulin Ratio 0.4 L 10/06/21 05:43: Ammonia 60.0 H 10/06/21 05:43: Phosphorus 2.6, Magnesium 2.1, TSH 0.03 L 10/06/21 05:43: Free T4 2.03 H, Free T3 pg/dL 1.0 L 10/06/21 10:18: APTT 31.1 Micro: Microbiology 10/06/21 08:55 Nasal Secretion SARS-CoV-2 Antigen (Rapid) - Final Radiography Diagnostic Testing: Radiology Impression Chest/Abdomen/Pelvis CTA 10/05/21 15:30 IMPRESSION: Heterogeneous appearance of the liver with dilated intrahepatic biliary ducts. Mass lesion seen in the left lobe of liver which was recently biopsied. No evidence of a aortic dissection. Electronically Signed: Jaxon Vera MD at 15:54 EDT , MRCP 10/05/21 18:20 IMPRESSION: 1. Exam limited to MRCP without contrast. 2. Mild hepatosplenomegaly. 3. Suspected infiltrative mass in the jeremy and left lobe of the liver with dilated and beaded ducts again noted. 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 4. 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 It is not demonstrated to be patent at the jeremy or near the pancreas. It is also retrospectively appears likely occluded on the CTA earlier today, with hypodense appearance of the main portal vein and central portal vein branches as compared to the isodense splenic vein on the CTA. Electronically Signed: Abbi Frederick MD at 21:14 EDT , ADDENDUM: 10/05/21 9698 IMPRESSION: 1. Exam limited to MRCP without contrast. 2. Mild hepatosplenomegaly. 3. Suspected infiltrative mass in the jeremy and left lobe of the liver with dilated and beaded ducts again noted. 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 4. 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 It is not demonstrated to be patent at the jeremy or near the pancreas. It is also retrospectively appears likely occluded on the CTA earlier today, with hypodense appearance of the main portal vein and central portal vein branches as compared to the isodense splenic vein on the CTA. N.B. : The above Results were Read Back by Abbi Frederick MD to Otoniel Truong RN, RN, and understanding confirmed on 10/05/2021 21:30:19 (ET). Electronically Signed: Abbi Frederick MD at 21:14 EDT , Physical Exam Const alert, oriented x3 and no apparent distress HEENT head/scalp atraumatic and moist oral mucous membranes Head and Scalp: normocephalic Eyes PERRL and EOMs intact bilaterally Eyes Narrative: Jaundice bilaterally. Neck no lymphadenopathy, supple and no JVD Resp normal respiratory effort, no retractions and no use of accessory muscles Cardio regular rate, regular rhythm and no JVD GI normal to inspection, nondistended, normoactive bowel sounds and soft to palpation Extremity normal to inspection and full ROM Skin Skin Narrative: Diffuse jaundice throughout body, no palmar erythema or telangiectasias noted. Neuro CN's II-XII intact bilaterally Psych affect normal Assessment & Plan Assessment/Plan (1) Liver mass: (2) Primary biliary cirrhosis: (3) Hyperbilirubinemia: (4) Hyperammonemia: PLAN: Day 1 Discharge planning: To be determined. 1) liver cirrhosis with adenocarcinoma Unclear if primary or metastatic at this time. MRCP obtained on 10/05 demonstrated mild hepatosplenomegaly, suspected infiltrative mass in the jeremy hepatic and left lobe, as well as portal vein thrombosis. Patient to undergo ERCP today. GI, general surgery and hematology/oncology have been consulted. We will continue to trend CBC, CMP and PT/INR. Continue ursodiol supportive medications. 2) hyperbilirubinemia Patient still with significant jaundice throughout. Total bilirubin still 11.6. Plan; as above. 3) hyperammonemia Ammonia currently 60. Patient to undergo ERCP today, will initiate lactulose pending GI recommendations. 4) bipolar disorder Continue benztropine, carbamazepine, mirtazapine, topiramate and ziprasidone 5) hypothyroidism Continue Synthroid. 6) hyperlipidemia Continue statin. 7) overactive bladder Continue oxybutynin. 8) GERD Continue PPI. DVT prophylaxis-SCDs, will hold off on pharmacological prophylaxis pending ERCP Patient seen by Darrell Mosqueda PA-C, under the supervision of Dr. Clarke. Time spent on patient care: 10 minutes. Documented by User: Dr. Indra Clarke, 10/06/21 12:24 Subjective Subjective Per dtr, more alert, but not at baseline Objective Data Lab / Micro Data Result Diagrams: 10/06/21 05:43 10/06/21 05:43 Physical Exam Const alert, oriented x3 and no apparent distress HEENT HEENT Narrative: icterus Head and Scalp: normocephalic Resp normal respiratory effort, no retractions, no use of accessory muscles and clear to auscultation bilaterally Cardio regular rate, regular rhythm, S1 normal heart sound and S2 normal heart sound GI normal to inspection, nondistended, normoactive bowel sounds, soft to palpation, non-tender and non-distended Extremity normal to inspection Extremity Narrative: no palmar erythema. Neuro Neuro Narrative: no asterixis. Sensorium / Orientation: awake and alert Psych affect normal Assessment & Plan Assessment/Plan (1) Decompensated hepatic cirrhosis: PLAN: Patient seen and examined independently. Data and vitals reviewed. I agree with the above note by the physician resident assistant cna. Decompensated cirrhosis: Concern is for possibly obstructive jaundice due to possible primary biliary cirrhosis or other process. Discussed with Dr. Randhawa, plan is for ERCP today. Portal vein thrombosis: Patient likely require anticoagulation but will hold off at this point given the pending procedure. Dr. Randhawa did request oncology's input. Did discuss case with Dr. Hanson. Liver mass: adenocarcinoma. Oncology on consult. Greater than 35 minutes reviewing data, discussing with specialists, discussing with pt and dtr. Charges/Coding Visit Charges Inpatient E&M: 99845 Subs Hosp L3
--- NOTE | 2021-10-06 11:30 | FLU_PTH ---
PATIENT: KALE STREETER LOC: MS3 U#:[id number] AGE/SX: 61/F ROOM: [facility] [place] RE10/05/[address]: Dr. Lesvia Marrero MD : 1960 BED: 1 DIS: 10/11/2021 SPEC #: [id number] RECD: 10/06/21 13:16 STATUS: MARI REQ #: [id number] SMILEY: 10/06/21 11:[address]: Mateo Randhawa DEPT: CYTOLOGY RECD BY: Beatriz Francois ENTERED: 10/06/21 13:45 SP TYPE: Fluid OTHR DR: MD Dr. Indra Bran, DO MD Dr. Calin Morin, DO MD Dr. Raudel Lopes MD Dr. Mark Tereletsky, DO Dr. Kory Hanson, Tissues: A - Bile duct, NOS B - Bile duct, NOS Procedures: Special Stain Group II Surgery Specimen Level IV Cytospin Fluid Comments: @ Ordering doctor for SSII edited from to @ by ROXANN at 10/06/21 1506 @ Ordering doctor for SUIV edited from to @ by RGOJONATHAN at 10/06/21 1506 @ Ordering doctor for CYSPIN edited from to @ by ROXANN at 10/06/21 1506 @ Submitting doctor edited from to @ by ROXANN at 10/06/21 1506 HEADER OPERATION: ERCP with spyglass PRE-OP DIAGNOSIS: Liver mass, primary biliary cirrhosis TISSUE SUBMITTED: A ? Bile duct aspirate, B ? Post Spybite biopsy, bile duct aspirate DIAGNOSIS CYTOLOGY A. Aspiration, bile duct (cytospin and cell block): Negative for malignant cells. Acute inflammation. B. Bile duct aspiration, post biopsy (cytospin and cell block): Negative for malignant cells. Acute inflammation. AM:juan a 10/07/2021 COMMENT Please refer to corresponding surgical case [id number]. Case has been reviewed in consultation with Dr. Zhong who concurs with the above diagnosis. IDC:SJ CYTOLOGY STUDY Slides are reviewed. CYTOLOGY GROSS A - Received is 7.5 ml of greene, cloudy fluid labeled with the patient's name and and designated per the requisition as bile duct aspirate. Submitted for cytology preparation including cell block. B - Received is 10 ml of light pink, mucoidy, cloudy fluid labeled with the patient's name and and designated per the requisition as post Spybite biopsy, bile duct aspirate. Submitted for cytology preparation including cell block. / juan a 10/06/2021 TC:2 CPT: 59995 x2, 89444 x2
--- NOTE | 2021-10-06 11:30 | MISC_PTH ---
PATIENT: KALE STREETER LOC: MS3 U#:[id number] AGE/SX: 61/F ROOM: [facility] [place] RE10/05/[address]: Dr. Lesvia Marrero MD : 1960 BED: 1 DIS: 10/11/2021 SPEC #: [id number] RECD: 10/06/21 13:16 STATUS: MARI REJohnny #: [id number] SMILEY: 10/06/21 11:[address]: Mateo Randhawa DEPT: SURGICAL PATHOLOGY RECD BY: Beatriz Francois ENTERED: 10/06/21 13:46 SP TYPE: MISC OTHR DR: MD Dr. Indra Bran, MD Dr. Calin Nathan Dr., MD Dr. Raudel Zhang Dr., MD Dr. Mark Tereletsky, DO Dr. 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 See comment. AM:juan a 10/07/2021 COMMENT Immunohistochemistry ([id number]) supports the above diagnosis. Please refer to corresponding cytology case [id number]. Reference is made to the patient?s previous CT guided liver biopsy with a diagnosis of Non-small cell carcinoma with squamous differentiation. Case has been reviewed in consultation with Dr. Zhong who concurs with the above diagnosis. IDC:FEDERICO MICROSCOPIC DESCRIPTION Slides are reviewed. GROSS DESCRIPTION Received in fixative is one container labeled with the patient's name and designated biopsy biliary stricture by Navarro. The specimen consists of multiple irregular fragments of light greene soft tissue that in aggregate measure 0.2 x 0.2 x <0.1 cm. The specimen is totally submitted in one cassette. / FEDERICO:juan a 10/06/2021 TC:0 CPT: 61155
--- NOTE | 2021-10-06 11:38 | CASEMGMT ---
Pt is currently off of the floor. RN CM to complete assessment at a later time.
--- NOTE | 2021-10-06 15:23 | CASEMGMT ---
ELIAS ANDRADE Assessment: Face to Face with pt for initial transition planning/care coordination assessment. ELIAS ANDRADE introduced self and role at [facility], pt voices understanding and consents to assessment. Pt is very drowsy, just returned from ERCP. She asks for ELIAS ANDRADE to ask her dtr the assessment questions. Care providers, pharmacy, and demographics verified/updated. Admitting Dx: A on C chronic cirrhosis PCP:[facility] Specialists:Epifanio, onc; Friend, gastro Preferred Pharmacy: [facility] Insurance: [facility] Prescription Benefit: yes LW/HPOA: Pt dtr denies pt having a LW/DPOA and denies need for info regarding AD. LNOK: Modesta Dumont, dtr Living Arrangements: Pt lives alone in a ground level apt with no steps to enter. Pt dtr states pt was I in ADL's up to a few weeks ago. States recently she has been being present when pt bathes for safety. Pt dresses self. Transportation: Pt does not drive. Pt dtr or her sister's boyfriend has been providing transportation. DME/HHC/SNF: Pt has a grab bar in her shower. She does not use AD at home nor have any. Pt dtr denies pt having any previous HHC or SNF stays. Pt dtr asking questions regarding HHC. Answered questions. Will check in with pt tomorrow to discuss. Pt dtr states no further concerns/needs. CM to follow. Advised pt to ask CM if any further question/concerns/needs arise, voices understanding. Pt Goal: TBD Plan: TBD
[2021-10-06] MEDS: Vancomycin IV 1,000 MG/200 ML BAG 200 MG IV (16:26)
--- NOTE | 2021-10-06 16:51 | OP.ERCP_ITS ---
Patient Name: Beronica Vergara Procedure Date: 10/06/2021 10:24 AM Date of : 1960 Age: 61 Procedure: ERCP Indications: Jaundice Providers: Mateo Randhawa DO Medicines: General Anesthesia Patient Profile: This is a 61 year old female. Refer to note in patient chart for documentation of history and physical. Patient has symptoms of acute jaundice. Complications: No immediate complications. Procedure: Pre-Anesthesia Assessment: - Prior to the procedure, a History and Physical was performed, and patient medications and allergies were reviewed. The patient is competent. The risks and benefits of the procedure and the sedation options and risks were discussed with the patient. All questions were answered and informed consent was obtained. Patient identification and proposed procedure were verified by the physician in the pre-procedure area. Mental Status Examination: alert and oriented. Airway Examination: normal oropharyngeal airway and neck mobility. Respiratory Examination: clear to auscultation. CV Examination: normal. Prophylactic Antibiotics: The patient does not require prophylactic antibiotics. Prior Anticoagulants: The patient has taken no previous anticoagulant or antiplatelet agents. ASA Grade Assessment: II - A patient with mild systemic disease. After reviewing the risks and benefits, the patient was deemed in satisfactory condition to undergo the procedure. The anesthesia plan was to use moderate sedation / analgesia (conscious sedation). Immediately prior to administration of medications, the patient was re-assessed for adequacy to receive sedatives. The heart rate, respiratory rate, oxygen saturations, blood pressure, adequacy of pulmonary ventilation, and response to care were monitored throughout the procedure. The physical status of the patient was re-assessed after the procedure. After obtaining informed consent, the scope was passed under direct vision. Throughout the procedure, the patient's blood pressure, pulse, and oxygen saturations were monitored continuously. The duodenoscope was introduced through the mouth, and advanced to the duodenum and used to inject contrast into the bile duct. The ERCP was accomplished without difficulty. The patient tolerated the procedure well. Scope In: 11:42:14 AM Scope Out: 12:52:40 PM Total Procedure Duration Time 1 hour 10 minutes 26 seconds Findings: The medical pathologist film was normal. The esophagus was successfully intubated under direct vision. The scope was advanced to a normal major papilla in the descending duodenum without detailed examination of the pharynx, larynx and associated structures, and upper GI tract. The upper GI tract was grossly normal. The bile duct was deeply cannulated with the short-nosed traction sphincterotome. Contrast was injected. I personally interpreted the bile duct images. Contrast extended to the main bile duct. Opacification of the main bile duct was successful. The maximum diameter of the ducts was 7 mm. The upper third of the main bile duct contained a single localized stenosis 6 mm in length. The common hepatic duct was diffusely dilated, secondary to a stricture. The largest diameter was 5 mm. A straight Roadrunner wire was passed into the biliary tree. A 5 mm biliary sphincterotomy was made with a traction (standard) sphincterotome using ERBE electrocautery. There was no post-sphincterotomy bleeding. The biliary tree was swept with a 12 mm balloon starting at the bifurcation. Mucus was swept from the duct. Debris was swept from the duct. Dilation of the common bile duct with a 10-11-12 mm balloon (to a maximum balloon size of 12 mm) dilator was successful. One 8.5 Fr by 2 cm stent was placed 5 cm into the common bile duct. The stent was in good position. One 7 Fr by 16 cm temporary stent was placed 5 cm into the common bile duct. Bile flowed through the stent. The stent was in good position. Impression: - A single localized biliary stricture was found in the upper third of the main bile duct. The stricture was inflammatory and malignant appearing. - The common hepatic duct was dilated, secondary to a stricture. - A biliary sphincterotomy was performed. - The biliary tree was swept and mucus and debris were found. - Common bile duct was successfully dilated. - One stent was placed into the common bile duct. - One temporary stent was placed into the common bile duct. Procedure Code(s): --- Professional --- 16014, Endoscopic retrograde cholangiopancreatography (ERCP); with placement of endoscopic stent into biliary or pancreatic duct, including pre- and post-dilation and guide wire passage, when performed, including sphincterotomy, when performed, each stent [id number], 59, Endoscopic retrograde cholangiopancreatography (ERCP); with placement of endoscopic stent into biliary or pancreatic duct, including pre- and post-dilation and guide wire passage, when performed, including sphincterotomy, when performed, each stent [id number], Endoscopic retrograde cholangiopancreatography (ERCP); with removal of calculi/debris from biliary/pancreatic duct(s) 23004, Endoscopic catheterization of the biliary ductal system, radiological supervision and interpretation CPT copyright 2017 [employer]. All rights reserved. The codes documented in this report are preliminary and upon salt grinder review may be revised to meet current compliance requirements. Mateo Randhawa DO 10/06/2021 4:50:44 PM This report has been signed electronically. Number of Addenda: 0 Note Initiated On: 10/06/2021 10:24 AM
--- NOTE | 2021-10-06 16:52 | OP.CCLET_ITS ---
10/06/2021 Calni Devries [address] [place] [address] Re : ERCP procedure for Beronica Vergara Dear Dr. Devries This procedure was performed on September. My impressions and recommendations are as follows: Impressions : - A single localized biliary stricture was found in the upper third of the main bile duct. The stricture was inflammatory and malignant appearing. - The common hepatic duct was dilated, secondary to a stricture. - A biliary sphincterotomy was performed. - The biliary tree was swept and mucus and debris were found. - Common bile duct was successfully dilated. - One stent was placed into the common bile duct. - One temporary stent was placed into the common bile duct. Recommendations : My findings are described in the full procedure note, which is enclosed. If I can be of further assistance, please feel free to contact me at . Sincerely, Mateo Randhawa, 10/06/2021 4:50:44 PM This report has been signed electronically.
--- NOTE | 2021-10-06 17:50 | PN_ITS ---
Subjective Subjective Ms. Vergara underwent ERCP today for persistent jaundice. She was discovered to have pus in her bile duct. I suspect this was from liver biopsy and possible seeding into the liver causing a local abscess. A lot of the fluid was drained out. 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 Biopsies were taken and stent was placed however the stent was placed up into the left lobe of the liver and the stricture at this time was not able to be placed in the right lobe of the liver due to swelling and infection Objective Data Objective Data Vital Signs: Vital Signs Temp Pulse Resp BP Pulse Ox 99.0 F 105 H 18 146/67 H 94 10/06/21 14:59 10/06/21 14:59 10/06/21 14:59 10/06/21 14:59 10/06/21 14:59 Oxygen Flow Rate (L/min) 2 Oxygen Delivery Method Nasal Cannula Weight: 187 lb 13.341 oz Body Mass Index (BMI) 31.2 Intake & Output: Intake and Output for Last 24 Hours 10/04/21 10/05/21 10/06/21 23:59 23:59 23:59 Intake Total 339.25 / 739.25 1036 / 1036 Balance 339.25 / 739.25 1036 / 1036 Lab / Micro Data Result Diagrams: 10/06/21 05:43 10/06/21 05:43 Labs: Laboratory Results - last 24 hr 10/06/21 05:43: WBC 6.9, RBC 3.15 L, Hgb 9.6 L, Hct 29.1 L, MCV 92.4, MCH 30.5, MCHC 33.0, RDW Std Deviation 48.3 H, RDW Coeff of Russell 14.3, Plt Count 94 L, MPV 11.4, Immature Gran % (Auto) 0.600, Neut % (Auto) 78.3 H, Lymph % (Auto) 9.9 L, [place] % (Auto) 10.7 H, Eos % (Auto) 0.4, Baso % (Auto) 0.1, Absolute Neuts (auto) 5.4, Absolute Lymphs (auto) 0.68 L, Nucleated RBC % 0 10/06/21 05:43: PT 19.9 H, INR 1.7 10/06/21 05:43: Sodium 134 L, Potassium 3.5, Chloride 103, Carbon Dioxide 24.0, Anion Gap 7, BUN 17, Creatinine 0.77, Estim Creat Clear Calc 68.17, Est GFR (MDR D) Af Amer 98, Est GFR (MDRD) Non-Af 81, BUN/Creatinine Ratio 22.0 H, Glucose 113 H, Calcium 8.9, Total Bilirubin 11.60 H, AST 97 H, ALT 60 H, Alkaline Phosphatase 857 H, Total Protein 6.6, Albumin 1.8 L, Globulin 4.8 H, Albumin/Globulin Ratio 0.4 L 10/06/21 05:43: Ammonia 60.0 H 10/06/21 05:43: Phosphorus 2.6, Magnesium 2.1, TSH 0.03 L 10/06/21 05:43: Free T4 2.03 H, Free T3 pg/dL 1.0 L 10/06/21 10:18: APTT 31.1 Micro: Microbiology 10/06/21 08:55 Nasal Secretion SARS-CoV-2 Antigen (Rapid) - Final Radiography Diagnostic Testing: Radiology Impression MRCP 10/05/21 18:20 IMPRESSION: 1. Exam limited to MRCP without contrast. 2. Mild hepatosplenomegaly. 3. Suspected infiltrative mass in the jeremy and left lobe of the liver with dilated and beaded ducts again noted. 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 4. 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 It is not demonstrated to be patent at the jeremy or near the pancreas. It is also retrospectively appears likely occluded on the CTA earlier today, with hypodense appearance of the main portal vein and central portal vein branches as compared to the isodense splenic vein on the CTA. Electronically Signed: Abbi Frederick MD at 21:14 EDT , ADDENDUM: 10/05/21 0579 IMPRESSION: 1. Exam limited to MRCP without contrast. 2. Mild hepatosplenomegaly. 3. Suspected infiltrative mass in the jeremy and left lobe of the liver with dilated and beaded ducts again noted. 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 4. 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 It is not demonstrated to be patent at the jeremy or near the pancreas. It is also retrospectively appears likely occluded on the CTA earlier today, with hypodense appearance of the main portal vein and central portal vein branches as compared to the isodense splenic vein on the CTA. N.B. : The above Results were Read Back by Abbi Frederick MD to Otoniel Truong RN, RN, and understanding confirmed on 10/05/2021 21:30:19 (ET). Electronically Signed: Abbi Frederick MD at 21:14 EDT , ERCP X-Ray 10/06/21 06:40 IMPRESSION: Stent placement. Electronically Signed: Jaxon Vera MD at 14:46 EDT , Physical Exam Const alert General Appearance: cooperative Orientation / Consciousness: oriented to person HEENT hearing grossly normal bilaterally Head and Scalp: normal to inspection Face and Sinus: face symmetric Nose: external nose normal Mouth: oral and palatal mucosa normal Eyes conjunctivae normal General Eye: normal appearance of both eyes Neck full ROM General: normal visual inspection Lymph Lymphatic: no lymphadenopathy noted Chest inspection of chest normal and palpation of chest normal Chest: symmetrical chest wall rise Resp normal respiratory effort Effort and Inspection: able to speak in complete sentences Cardio regular rate GI non-distended Percussion: normal to percussion Rectal Exam: deferred Neuro Speech: speech normal Gait (Neuro): normal gait Assessment & Plan Assessment/Plan (1) Decompensated hepatic cirrhosis: (2) Primary biliary cirrhosis: PLAN: Can continue her on ursodiol therapy (3) Cholangiocarcinoma: PLAN: Primary bili cirrhosis due to possible cholangiocarcinoma status post ERCP will fluid taken and biopsies of biliary stricture. Charges/Coding Visit Charges Inpatient E&M: 40848 Subs Hosp L2
[2021-10-06] MEDS: Benztropine Mesylate 0.5 MG TABLET PO (18:29)
[2021-10-06] MEDS: carBAMazepine 200 MG Tablet PO (18:29)
[2021-10-06] MEDS: Potassium Chloride Oral Tablet 20 MEQ PO (18:29)
[2021-10-06] MEDS: Tolterodine Tartrate 2 MG CAP.SA PO (18:29)
[2021-10-06] MEDS: Ziprasidone HCl 20 MG Capsule 80 MG PO (18:29)
[2021-10-06] MEDS: Pantoprazole Sodium 40 MG Tablet PO (18:29)
[2021-10-06] MEDS: Latanoprost 0.005% 1 Bottle 1 DRP EACH EYE (21:33)
[2021-10-06] MEDS: Topiramate 25 MG Tablet PO (21:34)
[2021-10-06] MEDS: Ursodiol 250 MG Tablet 500 MG PO (21:34)
[2021-10-06] MEDS: Senna Tablet 1 TABLET PO (21:34)
[2021-10-06] MEDS: Atorvastatin Calcium 40 MG Tablet PO (21:34)
[2021-10-07] VITALS (8 sets, daily range): BP systolic 107–128; BP diastolic 50–65; PULSE 90–114; RESP 16–24; TEMP 36.6–39.1; O2SAT 91–96
[2021-10-07] MEDS: 0.9% Saline Lock 10 ML Syringe IV ×2 (04:10→17:00)
[2021-10-07 04:12] LABS: Absolute Neutrophil Count 7.3 X10^3/uL (2.0-7.7); Basophil# 0.01 X10^3/uL; Basophil% 0.1 % (0-1); Eosinophil# 0.01 X10^3/uL; Eosinophils% 0.1 % (0-5); Hematocrit 27.5 % (37-47); Hemoglobin 8.9 g/dL (12.0-15.0); Lymphocyte % 5.9 % (19-41); Mean Corp Hgb Conc 32.4 g/dL (32-36); Mean Corpuscular Hgb 29.9 pg (27.0-32.0); Mean Corpuscular Volume 92.3 fL (81-99); Mean Platelet Vol. 11.4 fl (6.2-12.0); Monocyte# 0.68 X10^3/uL; NRBC Flagged by Analyzer 0 % (0-5); Neutrophil # 7.29 X10^3/uL (2.7-7.7); Neutrophil % 85.4 % (47-70); POSITIVE COUNT YES; POSITIVE DIFFERENTIAL YES; Platelet Count 85 K/mm3 (150-450); RBC Distribution Width CV 14.2 % (11.6-14.6); RBC Distribution Width SD 48.8 fl (35.1-43.9); Red Blood Count 2.98 M/mm3 (4.2-5.4); White Blood Count 8.5 K/mm3 (4.4-11.0)
[2021-10-07] MEDS: Levothyroxine 175 MCG Tablet PO (04:12)
[2021-10-07 04:14] LABS: Differential Indicated SCAN CRITERIA MET
[2021-10-07 04:18] LABS: International Normalized Ratio 1.4; Prothrombin Time (Protime)PT. 16.4 SECONDS (11.7-14.9)
[2021-10-07] MEDS: Ziprasidone HCl 20 MG Capsule 80 MG PO (04:47)
[2021-10-07] MEDS: Vancomycin IV 1,000 MG/200 ML BAG 200 MG IV (04:48)
[2021-10-07 04:52] LABS: ALB/GLOB Ratio 0.3 RATIO (0.9-2.4); AST(SGOT) 121 U/L (15-37); Alanine Aminotransfer ALT/SGPT 70 U/L (13-56); Albumin, Serum 1.6 g/dL (3.2-5.0); Alkaline Phosphatase 847 U/L (45-117); Anion Gap 6 (5-15); BUN 16 mg/dL (7-18); BUN/Creat Ratio 20.6 RATIO (10-20); Calcium,Total 8.6 mg/dL (8.5-10.1); Chloride 102 mmol/L (98-107); Creatinine, Serum 0.78 mg/dL (0.55-1.02); EST Glomerular Filtration Rate 80 mL/min (>60); Est Glom Filt Rate - Afr Amer 97 mL/min (>60); Estimated Creatinine Clearance 67.29 ml/min; Globulin 4.8 g/dL (2.2-4.2); Glucose 149 mg/dL (74-106); Potassium 3.7 mmol/L (3.5-5.1); Protein, Total 6.4 g/dL (6.4-8.2); Sodium Level 134 mmol/L (136-145)
[2021-10-07 05:09] LABS: Differential Comment SCANNED
[2021-10-07 05:10] LABS: Platelet Estimate SLT DEC (ADEQ)
--- NOTE | 2021-10-07 05:14 | PCM.RX.CS ---
Consult Pharmacy has been consulted to manage selected antiobiotic: Vancomycin Type of Consult: Follow-up Prior Doses of Antibiotics Received/Current Regimen: Medications Vancomycin HCl 1,500 mg/ (Sodium Chloride) 530 mls @ 250 mls/hr IV Q12H MAYA Vancomycin HCl (Vancomycin) 1,000 mg in 200 mls @ 200 mls/hr IV Q12H MAYA Stop: 10/07/21 06:00 Last Admin: 10/07/21 04:48 Dose: 200 mls/hr Labs: Sodium 134 mmol/L (136-145) L 10/07/21 03:35 Potassium 3.7 mmol/L (3.5-5.1) 10/07/21 03:35 Chloride 102 mmol/L (98-107) 10/07/21 03:35 Carbon Dioxide 26.0 mmol/L (21.0-32.0) 10/07/21 03:35 Anion Gap 6 (5-15) 10/07/21 03:35 BUN 16 mg/dL (7-18) 10/07/21 03:35 Creatinine 0.78 mg/dL (0.55-1.02) 10/07/21 03:35 Est GFR (MDRD) Af Amer 97 mL/min (>60) 10/07/21 03:35 Est GFR (MDRD) Non-Af 80 mL/min (>60) 10/07/21 03:35 BUN/Creatinine Ratio 20.6 RATIO (10-20) H 10/07/21 03:35 Glucose 149 mg/dL (74-106) H 10/07/21 03:35 Vancomycin Trough 11.0 ug/mL (5.0-15.0) 10/07/21 03:35 Microbiology: Microbiology 10/06/21 08:55 Nasal Secretion SARS-CoV-2 Antigen (Rapid) - Final Weight used for dosin.2 kg Estimated Creatinine Clearance: 68 Goal Trough: 15-20 mcg/mL Pharmacy Plan for Drug Dosing: Vancomycin trough level, drawn 11 hours post dose, was 11.0. This was below the target range of 15-20, so the dose will be increased to 1500mg q12h. Another trough will be drawn prior to 4th dose of new regimen. Pharmacy Service will continue to monitor and adjust dosing as required. Follow-Up Labs: Trough Vancomycin Labs to be done on [date and time ordered]: 10/09/21 @0330
--- NOTE | 2021-10-07 07:56 | ONC.CONSULT ---
Assessment & Plan Assessment/Plan (1) Decompensated hepatic cirrhosis: Status: Acute Code(s): K72.90 - Hepatic failure, unspecified without coma; K74.60 - Unspecified cirrhosis of liver (2) Primary biliary cirrhosis: Status: Acute Code(s): K74.3 - Primary biliary cirrhosis (3) Cholangiocarcinoma: Status: Acute Code(s): C22.1 - Intrahepatic bile duct carcinoma Plan: Impression: -The patient is a 61 yo with a PMH significant for primary sclerosing cholangitis. -Admitted for progressive fatigue, worsening jaundice and confusion. -Initial imaging suggestive of probable PVT vs tumor invasion into PV with proximal CBD obstruction. -The latter confirmed on ERCP. Stent successfully placed with bile flow observed. -Pus was also observed. She is afebrile and WBC total not elevated. BC remain negative. -Previous CT (09/01) suggested PVT (images reviewed), but current imaging unclear due to what appears to be complete occlusion of PV. This is supported by decline in Hgb and plt count likely from splenic congestion (she didn't have splenomegaly originally). Therefore, reasonable to initiate anti-coagulation with Lovenox. -KPS is 30%. -Currently not a candidate for cytotoxic chemotherapy. Plan: -Will d/w Dr. Randhawa--Indication for percutaneous drainage? Need for antibiotics? -Discussed poor prognosis with patient--recommend palliative care consultation. -Will discuss anticoagulation with Dr. Clarke. -Dr. Busby covers this weekend. HPI Consult Data Date of Service:: 10/07/21 PCP / Referring Provider: Dr. Calin Devries DO Attending: Dr. Indra Clarke DO Chief Complaint Chief Complaint: Cholangiocarinoma History of Present Illness History of Present Illness: Per Dr. Godfrey's recent initial outpatient consultation note 10/03, the patient is a 61-year-old female with a past medical history significant for of bipolar disorder, schizoaffective disorder, and primary biliary sclerosis who was seen for progressive weight loss and increased upper abdominal pain. She had an MRI scan of the liver on August 31, 2021 that showed a liver mass at the left hepatic lobe lateral segment with periaortic and portal vein adenopathy. ? She subsequently had a CT scan chest abdomen pelvis and brain on September 01, 2021 which showed no evidence of metastatic disease. Positive for PVT. She had not been feeling well for the last 6 months with progressive weight loss, loss of taste and anorexia. She started having upper abdominal pain for last 3 months along with early satiety. She denied jaundice, but had diffuse itching. CT liver biopsy on September 13 and the pathology was consistent with carcinoma favor adenocarcinoma with squamous differentiation. Her initial tumor marker AFP 3.1, CEA 8.8, CA 15-3 was normal. Her alkaline phosphatase was elevated at 216. As of 09/30, total bilirubin was 8.3 mg/dL and alkaline phosphatase was 1044 units/L. AST and ALT were minimally elevated at 54 and 55 units/L respectively. Serum creatinine was 0.76 mg/dL. CBC was unremarkable with a hemoglobin of 11.5 g/dL. She was admitted for progressive weakness, onset of jaundice and confusion. CT of chest, abdomen pelvis revealed heterogeneous appearance of the liver with dilated intrahepatic biliary ducts. There was a heterogeneous mass with focal calcification in the region of the left lobe measuring approximately 3.7 x 4.2 cm. Gallbladder was not visualized secondary to prior cholecystectomy. Spleen was interpreted as being normal. There was a heterogeneous appearance of the pancreas. No comment on hepatic and jeremy hepatis vasculature. Initial bilirubin was 20. MRCP on 10/05 revealed dilated Intermatic ducts with complex appearing area in the periportal region extending into the left lobe with altered signal intensity highly suspicious for infiltrative mass involving the jeremy and at least the left periportal region and main portal vein. Estimated infiltrative mass of roughly 8.8 x 6.9 cm. Common duct was not clearly seen on CT or MRCP. There was mild hepatosplenomegaly measuring 13.8 cm in craniocaudal dimension. There was no visible patent main portal vein on the MRI there was some flow related to signal in the SMV branches and an splenic vein branch but presume main portal vein thrombosis and/or infiltration by neoplasm was suggested. No enlarged lymph nodes were observed. Patient had ERCP yesterday afternoon. There was a single localized biliary stricture observed in the upper third of the main bile duct. It was inflammatory and malignant appearing. The common hepatic duct was dilated and a biliary sphincterotomy was performed. The tree was swept and mucus and debris were found. Question of pus was observed. Common bile duct was successfully dilated and a temporary stent was placed in the common bile duct. Bile flow from the stent was observed. Total bilirubin and alkaline phosphatase minimally improved this morning. Patient is awake alert and oriented to date, place and self. She was aware and told me that I cared for her mother (she was correct). Denies nausea. Gets hungry, a little bit. Bowels moved this am. Soft BM. Denies abdominal pain. 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 Chronic mental illness Cirrhosis Depression GERD (gastroesophageal reflux disease) High cholesterol History of stress test Hypothyroidism Post-menopausal Restless legs Scarlet fever Schizophrenia Smoker Thyroiditis Home Medications atorvastatin 40 mg PO QHS 01/11/15 [History Last Taken 09/12/21] carbamazepine 200 mg PO BIDCM 01/11/15 [History Last Taken 04/07/15 04:30 200 MG] cholecalciferol (vitamin D3) 10,000 unit PO DAILY 01/11/15 [History Last Taken Unknown] ibuprofen 400 mg PO Q6H PRN PRN 01/11/15 [History Last Taken Unknown] latanoprost 1 drp EACH EYE QHS 01/11/15 [History Last Taken Unknown] levothyroxine 175 mcg PO MOTUWETHFR 01/11/15 [History Last Taken 04/07/15 04:30 150 MCG] topiramate 25 mg PO QHS 01/11/15 [History Last Taken Unknown] acidophilus-sporogenes [Acidophilus Ex Str (L. sporog)] 1 tab PO DAILY 09/13/21 [History Last Taken Unknown] benztropine 0.5 mg PO DINNER 09/13/21 [History Last Taken Unknown] benztropine 1 mg PO DAILY 09/13/21 [History Last Taken Unknown] oxybutynin chloride 10 mg PO DINNER 09/13/21 [History Last Taken Unknown] pantoprazole 40 mg PO DAILY 09/13/21 [History Last Taken Unknown] potassium chloride 20 meq PO TID 09/13/21 [History Last Taken Unknown] ziprasidone HCl 20 mg PO BID 09/13/21 [History Last Taken Unknown] ziprasidone HCl 80 mg PO BIDCM 09/13/21 [History Last Taken Unknown] levothyroxine 87.5 mcg PO SUSA 10/05/21 [History Last Taken Unknown] mirtazapine 15 mg PO QHS PRN 10/05/21 [History Last Taken Unknown] morphine [MS Contin] 15 mg PO Q12H PRN 10/05/21 [History Last Taken Unknown] promethazine 25 mg PO Q6H PRN 10/05/21 [History Last Taken Unknown] sennosides [senna] 8.6 mg PO BID 10/05/21 [History Last Taken Unknown] ursodiol 500 mg PO BID 10/05/21 [History Last Taken Unknown] Allergy/AdvReac Type Severity Reaction Status Date / Time codeine AdvReac Other Verified 10/05/21 12:56 naproxen [From Naprosyn] AdvReac Other Verified 01/10/17 23:06 Surgical History (Updated 10/05/21 @ 21:33 by Bo Stephens) History of cholecystectomy S/P hysterectomy S/P tubal ligation Social History household members: none housing: apartment Smoking Status: Former smoker Physical Exam Const oriented x3 Constitutional Narrative: Fatigued and jaundiced appearing. Eyes Sclera: sclera abnormal Positive for bilateral Lymph Lymphatic: no lymphadenopathy noted Resp normal respiratory effort Cardio regular rhythm GI soft to palpation GI Narrative: Tender RUQ. Extremity no pedal edema Vital Signs Temperature 98 F 10/07/21 05:02 Temperature Source Temporal 10/07/21 05:02 Pulse Rate 97 10/07/21 05:02 Pulse Strength Normal (2+) 10/06/21 22:00 Respiratory Rate 16 10/07/21 05:02 Respiratory Effort Non-Labored 10/06/21 21:45 Respiratory Depth Normal 10/06/21 21:45 Respiratory Pattern Normal 10/06/21 21:45 Blood Pressure 120/65 10/07/21 05:02 Blood Pressure Mean 83 10/07/21 05:02 Blood Pressure Source Monitor 10/07/21 05:02 Blood Pressure Position Semi-Fowlers 10/07/21 05:02 Blood Pressure Location Right Arm 10/07/21 05:02 Baseline BP 115/64 10/06/21 14:20 Pulse Ox 95 10/07/21 05:02 Oxygen Delivery Method Room Air 10/07/21 05:02 Oxygen Flow Rate (L/min) 2 10/06/21 14:59 Laboratory Results - last 24 hr 10/06/21 05:43: Free T4 2.03 H, Free T3 pg/dL 1.0 L 10/06/21 10:18: APTT 31.1 10/07/21 03:35: Vancomycin Trough 11.0 10/07/21 03:35: WBC 8.5, RBC 2.98 L, Hgb 8.9 L, Hct 27.5 L, MCV 92.3, MCH 29.9, MCHC 32.4, RDW Std Deviation 48.8 H, RDW Coeff of Russell 14.2, Plt Count 85 L, MPV 11.4, Immature Gran % (Auto) 0.500, Neut % (Auto) 85.4 H, Lymph % (Auto) 5.9 L, [place] % (Auto) 8.0, Eos % (Auto) 0.1, Baso % (Auto) 0.1, Absolute Neuts (auto) 7.3, Absolute Lymphs (auto) 0.50 L, Nucleated RBC % 0, Differential Comment SCANNED, Platelet Estimate SLT 10/07/21 03:35: PT 16.4 H, INR 1.4 10/07/21 03:35: Sodium 134 L, Potassium 3.7, Chloride 102, Carbon Dioxide 26.0, Anion Gap 6, BUN 16, Creatinine 0.78, Estim Creat Clear Calc 67.29, Est GFR (MDRD) Af Amer 97, Est GFR (MDRD) Non-Af 80, BUN/Creatinine Ratio 20.6 H, Glucose 149 H, Calcium 8.6, Total Bilirubin 12.00 H, AST 121 H, ALT 70 H, Alkaline Phosphatase 847 H, Total Protein 6.4, Albumin 1.6 L, Globulin 4.8 H, Albumin/Globulin Ratio 0.3 L Microbiology 10/06/21 08:55 Nasal Secretion SARS-CoV-2 Antigen (Rapid) - Final Diagnostic Data Chest/Abdomen/Pelvis CTA 10/05/21 15:30 IMPRESSION: Heterogeneous appearance of the liver with dilated intrahepatic biliary ducts. Mass lesion seen in the left lobe of liver which was recently biopsied. No evidence of a aortic dissection. Electronically Signed: Jaxon Vera MD at 15:54 EDT , MRCP 10/05/21 18:20 IMPRESSION: 1. Exam limited to MRCP without contrast. 2. Mild hepatosplenomegaly. 3. Suspected infiltrative mass in the jeremy and left lobe of the liver with dilated and beaded ducts again noted. 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 4. 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 It is not demonstrated to be patent at the jeremy or near the pancreas. It is also retrospectively appears likely occluded on the CTA earlier today, with hypodense appearance of the main portal vein and central portal vein branches as compared to the isodense splenic vein on the CTA. Electronically Signed: Abbi Frederick MD at 21:14 EDT , ADDENDUM: 10/05/217 IMPRESSION: 1. Exam limited to MRCP without contrast. 2. Mild hepatosplenomegaly. 3. Suspected infiltrative mass in the jeremy and left lobe of the liver with dilated and beaded ducts again noted. 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 4. 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 It is not demonstrated to be patent at the jeremy or near the pancreas. It is also retrospectively appears likely occluded on the CTA earlier today, with hypodense appearance of the main portal vein and central portal vein branches as compared to the isodense splenic vein on the CTA. N.B. : The above Results were Read Back by Abbi Frederick MD to Otoniel Truong RN, RN, and understanding confirmed on 10/05/2021 21:30:19 (ET). Electronically Signed: Abbi Frederick MD at 21:14 EDT , ERCP X-Ray 10/06/21 06:40 IMPRESSION: Stent placement. Electronically Signed: Jaxon Vera MD at 14:46 EDT ,
[2021-10-07] MEDS: Ursodiol 250 MG Tablet 500 MG PO ×2 (08:43→20:21)
[2021-10-07] MEDS: Ziprasidone HCl 20 MG Capsule PO ×2 (08:43→20:20)
[2021-10-07] MEDS: Benztropine 2 MG Tablet 1 MG PO (08:43)
[2021-10-07] MEDS: Potassium Chloride Oral Tablet 20 MEQ PO ×3 (08:43→17:06)
[2021-10-07] MEDS: carBAMazepine 200 MG Tablet PO ×2 (08:43→17:06)
[2021-10-07] MEDS: Pantoprazole Sodium 40 MG Tablet PO (08:43)
--- NOTE | 2021-10-07 11:40 | CASEMGMT ---
Addendum entered by Nimco Reyes 10/07/21 15:16: Pt dtr states she is unsure what dc disposition will be. States pt was indep a few weeks ago. She states this is hard for her to watch, listened to dtr. ELIAS ANDRADE to follow for dc planning. Addendum entered by Nimco Reyes 10/07/21 15:13: Received notification from palliative who states pt was referred for palliative on 10/03 and liaison met with pt on 10/04 and pt declined. ELIAS ANDRADE in to pt room. Pt sitting up in chair, very drowsy, eyes closed but did answer ELIAS ANDRADE. Pt states she did decline palliative but now is agreeable. Pt dtr also is agreeable to this. She would like to be present. Provided pamphlet to pt/dtr. They both deny further needs. Pt thanked ELIAS ANDRADE. Emailed palliative to make aware of pt decision. Addendum entered by Nmico Reyes 10/07/21 11:42: [facility] Palliative Screening Tool completed, pt met criteria. Original Note: Received order for palliative care, email to palliative at this time.
--- NOTE | 2021-10-07 11:45 | PCM.PN.HOSP ---
Documented by User: Darrell ZHENG 10/07/21 12:00 Subjective Subjective Patient is a 61-year-old female resting in bed, alert and orient x3. Patient still jaundiced although more interactive relative to yesterday. Denies development of any new symptoms overnight, does not appear in acute distress. Objective Data Objective Data Vital Signs: Vital Signs Temp Pulse Resp BP Pulse Ox 98.8 F 98 18 128/61 H 95 10/07/21 08:03 10/07/21 08:03 10/07/21 08:03 10/07/21 08:03 10/07/21 10:21 Oxygen Flow Rate (L/min) 2 Oxygen Delivery Method Room Air Weight: 193 lb 9.054 oz Body Mass Index (BMI) 31.2 Intake & Output: Intake and Output for Last 24 Hours 10/05/21 10/06/21 10/07/21 23:59 23:59 23:59 Intake Total 339.25 / 739.25 1206 / 1206 300 / 300 Balance 339.25 / 739.25 1206 / 1206 300 / 300 Lab / Micro Data Result Diagrams: 10/07/21 03:35 10/07/21 03:35 Labs: Laboratory Results - last 24 hr 10/07/21 03:35: Vancomycin Trough 11.0 10/07/21 03:35: WBC 8.5, RBC 2.98 L, Hgb 8.9 L, Hct 27.5 L, MCV 92.3, MCH 29.9, MCHC 32.4, RDW Std Deviation 48.8 H, RDW Coeff of Russell 14.2, Plt Count 85 L, MPV 11.4, Immature Gran % (Auto) 0.500, Neut % (Auto) 85.4 H, Lymph % (Auto) 5.9 L, [place] % (Auto) 8.0, Eos % (Auto) 0.1, Baso % (Auto) 0.1, Absolute Neuts (auto) 7.3, Absolute Lymphs (auto) 0.50 L, Nucleated RBC % 0, Differential Comment SCANNED, Platelet Estimate SLT 10/07/21 03:35: PT 16.4 H, INR 1.4 10/07/21 03:35: Sodium 134 L, Potassium 3.7, Chloride 102, Carbon Dioxide 26.0, Anion Gap 6, BUN 16, Creatinine 0.78, Estim Creat Clear Calc 67.29, Est GFR (MDRD) Af Amer 97, Est GFR (MDRD) Non-Af 80, BUN/Creatinine Ratio 20.6 H, Glucose 149 H, Calcium 8.6, Total Bilirubin 12.00 H, AST 121 H, ALT 70 H, Alkaline Phosphatase 847 H, Total Protein 6.4, Albumin 1.6 L, Globulin 4.8 H, Albumin/Globulin Ratio 0.3 L Micro: Microbiology 10/06/21 08:55 Nasal Secretion SARS-CoV-2 Antigen (Rapid) - Final Radiography Diagnostic Testing: Radiology Impression ERCP X-Ray 10/06/21 06:40 IMPRESSION: Stent placement. Electronically Signed: Jaxon Vera MD at 14:46 EDT , Physical Exam Const alert, oriented x3 and no apparent distress HEENT head/scalp atraumatic and moist oral mucous membranes Head and Scalp: normocephalic Eyes Eyes Narrative: Eyes jaundiced bilaterally. Neck no lymphadenopathy, supple and no JVD Resp normal respiratory effort, no retractions and no use of accessory muscles Cardio regular rate, regular rhythm and no JVD GI normal to inspection, nondistended, normoactive bowel sounds Palpation: firm Extremity normal to inspection, full ROM and no clubbing, cyanosis or edema Skin Skin Narrative: Jaundiced throughout. Neuro CN's II-XII intact bilaterally Psych affect normal Assessment & Plan Assessment/Plan (1) Cholangiocarcinoma: (2) Decompensated hepatic cirrhosis: (3) Liver mass: (4) Primary biliary cirrhosis: PLAN: Day 2 Discharge planning: To be determined. 1)Primary biliary cirrhosis Patient underwent ERCP on 10/06 which resulted in dilation and stenting of the common bile duct and biliary sphincterotomy. Patient is to continue Urosdiol therapy. 2) Cholangiocarcinoma Evalutated by Heme/Onc today and was deemed not to be a candidate for hemotherapy. Overall poor prognosis noted. Palliative care consult placed. 3) hyperammonemia Ammonia currently 60. Overall confusion seems to have been improved as patient is appropriately alert and oriented and able to interact appropriately. Plan; as above. 4) bipolar disorder Continue benztropine, carbamazepine, mirtazapine, topiramate and ziprasidone 5) hypothyroidism Continue Synthroid. 6) hyperlipidemia Continue statin. 7) overactive bladder Continue oxybutynin. 8) GERD Continue PPI. DVT prophylaxis- SCDs, will hold off on pharmacological prophylaxis pending ERCP Patient seen by Darrell Mosqueda PA-C, under the supervision of Dr. Clarke. Time spent on patient care: 9 minutes. Documented by User: Dr. Indra Clarke, DO 10/07/21 13:38 Subjective Subjective Still confused. Patient's daughter notes that patient seems to be more confused today. Objective Data Lab / Micro Data Result Diagrams: 10/07/21 03:35 10/07/21 03:35 Physical Exam Const alert and no apparent distress Constitutional Narrative: Oriented to place and self. Date was September but cannot provide a year. Eyes Eyes Narrative: Icterus Resp normal respiratory effort, no retractions, no use of accessory muscles and clear to auscultation bilaterally Cardio regular rate, regular rhythm, S1 normal heart sound and S2 normal heart sound GI normal to inspection, nondistended, normoactive bowel sounds, soft to palpation, non-tender and non-distended Extremity normal to inspection Skin Skin Narrative: Jaundice. No palmar erythema. Neuro Neuro Narrative: No asterixis Sensorium / Orientation: awake Assessment & Plan Assessment/Plan (1) Hyperbilirubinemia: (2) Hyperammonemia: PLAN: Patient seen and examined independently. Data and vitals reviewed. I agree with the above note by the physician assistant loan processor. Decompensated cirrhosis: Concern is for possibly obstructive jaundice due to possible primary biliary cirrhosis or other process. Patient underwent an ERCP on the and stent was placed in the common bile duct. Progress note from Dr. Randhawa noted pus in her bile duct. Concern was for seeding from the biopsy that may have caused a localized abscess. Currently on antibiotics with PIP Tazocin and vancomycin. I am unsure if patient has cholangitis but will be treated as such for the time being. Portal vein thrombosis: Patient likely require anticoagulation but will hold off at this point given the pending procedure. Dr. Randhawa did request oncology's input. Did discuss case with Dr. Hanson today who states that the patient is okay for anticoagulation. We will hold off any full anticoagulation until we determine no additional procedures are needed at this time. Hyperammonia toxicity: Contributing to hepatic encephalopathy which is a toxic/metabolic encephalopathy. Secondary to cirrhosis. Start lactulose Liver mass: adenocarcinoma. Oncology on consult. Greater than 35 minutes reviewing data, discussing with specialists, discussing with pt and dtr. Charges/Coding Visit Charges Inpatient E&M: 67186 Subs Hosp L3
--- NOTE | 2021-10-07 14:07 | PN_ITS ---
Subjective Subjective Patient has been in and out of the chair and into the bed. She is still very very cold and has been complaining of chills along with subjective fevers. She is wrapped up in blankets. She underwent ERCP yesterday. She tolerated some diet today. But she has been very lethargic today has per her daughter. Objective Data Objective Data Vital Signs: Vital Signs Temp Pulse Resp BP Pulse Ox 98.8 F 98 18 128/61 H 95 10/07/21 08:03 10/07/21 08:03 10/07/21 08:03 10/07/21 08:03 10/07/21 10:21 Oxygen Flow Rate (L/min) 2 Oxygen Delivery Method Room Air Weight: 193 lb 9.054 oz Body Mass Index (BMI) 31.2 Intake & Output: Intake and Output for Last 24 Hours 10/05/21 10/06/21 10/07/21 23:59 23:59 23:59 Intake Total 339.25 / 739.25 1206 / 1206 300 / 300 Balance 339.25 / 739.25 1206 / 1206 300 / 300 Lab / Micro Data Result Diagrams: 10/07/21 03:35 10/07/21 03:35 Labs: Laboratory Results - last 24 hr 10/07/21 03:35: Vancomycin Trough 11.0 10/07/21 03:35: WBC 8.5, RBC 2.98 L, Hgb 8.9 L, Hct 27.5 L, MCV 92.3, MCH 29.9, MCHC 32.4, RDW Std Deviation 48.8 H, RDW Coeff of Russell 14.2, Plt Count 85 L, MPV 11.4, Immature Gran % (Auto) 0.500, Neut % (Auto) 85.4 H, Lymph % (Auto) 5.9 L, [place] % (Auto) 8.0, Eos % (Auto) 0.1, Baso % (Auto) 0.1, Absolute Neuts (auto) 7.3, Absolute Lymphs (auto) 0.50 L, Nucleated RBC % 0, Differential Comment SCANNED, Platelet Estimate SLT 10/07/21 03:35: PT 16.4 H, INR 1.4 10/07/21 03:35: Sodium 134 L, Potassium 3.7, Chloride 102, Carbon Dioxide 26.0, Anion Gap 6, BUN 16, Creatinine 0.78, Estim Creat Clear Calc 67.29, Est GFR (MDRD) Af Amer 97, Est GFR (MDRD) Non-Af 80, BUN/Creatinine Ratio 20.6 H, Glucose 149 H, Calcium 8.6, Total Bilirubin 12.00 H, AST 121 H, ALT 70 H, Alkaline Phosphatase 847 H, Total Protein 6.4, Albumin 1.6 L, Globulin 4.8 H, Albumin/Globulin Ratio 0.3 L Micro: Microbiology 10/06/21 08:55 Nasal Secretion SARS-CoV-2 Antigen (Rapid) - Final Radiography Diagnostic Testing: Radiology Impression ERCP X-Ray 10/06/21 06:40 IMPRESSION: Stent placement. Electronically Signed: Jaxon Vera MD at 14:46 EDT , Physical Exam Const alert General Appearance: cooperative Orientation / Consciousness: oriented to person HEENT hearing grossly normal bilaterally Head and Scalp: normal to inspection Face and Sinus: face symmetric Nose: external nose normal Mouth: oral and palatal mucosa normal Eyes conjunctivae normal General Eye: normal appearance of both eyes Neck full ROM General: normal visual inspection Lymph Lymphatic: no lymphadenopathy noted Chest inspection of chest normal and palpation of chest normal Chest: symmetrical chest wall rise Resp normal respiratory effort Effort and Inspection: able to speak in complete sentences Cardio regular rate GI non-distended Percussion: normal to percussion Rectal Exam: deferred Assessment & Plan Assessment/Plan (1) Cholangiocarcinoma: PLAN: Patient had a very tight stricture at the level of the jeremy hepatis that did not allow for communication into the right hepatic system. We were able to access the left hepatic system. Recommend either percutaneous transhepatic cholangiopancreatography drainage or repeat ERCP with spyglass and attempt to decompress the right side of the biliary system. (2) Decompensated hepatic cirrhosis: PLAN: Patient has eczematous signs of decompensated cirrhosis. I talk with her oncologist and they would like her bilirubin to be down less than 6 in order to administer chemotherapy from likely cholangiocarcinoma but the specimens are pending. (3) Hyperammonemia: Charges/Coding Visit Charges Inpatient E&M: 14225 Init Hosp L2
[2021-10-07] MEDS: Lactulose 20 GM/30 ML UDC PO ×2 (14:14→20:20)
[2021-10-07] MEDS: Ibuprofen 400 MG Tablet PO ×2 (14:15→20:19)
--- NOTE | 2021-10-07 16:55 | CASEMGMT ---
Social Work SW met with pt and dgt Modesta to offer support. Pt sleeping throughout conversation and Modesta states pt has been sleeping most of the day. SW spent time with dgt Modesta discussing pt illness and prognosis. Modesta tearful throughout conversatoin, emotional support provided. RNCM did provide information on palliative medicine. SW provided followup information on palliative and also explained hospice program. Modesta does not feel she can provide 24 hour care for pt at home and therefore discharge plan is undetermined. ANTHONY spoke briefly with Modesta regarding assisted placement and provided list of SNF providers including quality and resource use data and consistent with the patients preferred geographic region, medical needs and insurance network. ANTHONY will continue to follow for emotional support and discharge planning. FLORIN Oliver
[2021-10-07] MEDS: Tolterodine Tartrate 2 MG CAP.SA PO (17:06)
[2021-10-07] MEDS: Benztropine Mesylate 0.5 MG TABLET PO (17:06)
[2021-10-07] MEDS: Latanoprost 0.005% 1 Bottle 1 DRP EACH EYE (20:22)
[2021-10-07] MEDS: Atorvastatin Calcium 40 MG Tablet PO (20:22)
[2021-10-07] MEDS: Topiramate 25 MG Tablet PO (20:23)
[2021-10-08 02:09] VITALS: BP 118/54; PULSE 90; RESP 16; TEMP 36.6; O2SAT 97
[2021-10-08] MEDS: Ziprasidone HCl 20 MG Capsule 80 MG PO ×2 (04:07→16:04)
[2021-10-08] MEDS: Lactulose 20 GM/30 ML UDC PO ×3 (05:04→21:34)
[2021-10-08] MEDS: Levothyroxine 175 MCG Tablet 87.5 MCG PO (05:04)
[2021-10-08 07:26] LABS: Absolute Lymphocyte Count 0.84 X10^3/uL (0.83-4.51); Absolute Neutrophil Count 7.7 X10^3/uL (2.0-7.7); Basophil# 0.02 X10^3/uL; Basophil% 0.2 % (0-1); Eosinophil# 0.04 X10^3/uL; Eosinophils% 0.4 % (0-5); Hematocrit 29.2 % (37-47); Hemoglobin 9.2 g/dL (12.0-15.0); Lymphocyte # 0.84 X10^3/ul (0.83-4.51); Mean Corp Hgb Conc 31.5 g/dL (32-36); Mean Corpuscular Hgb 29.3 pg (27.0-32.0); Mean Platelet Vol. 11.8 fl (6.2-12.0); Monocyte# 0.63 X10^3/uL; Monocyte% 6.8 % (0-10); NRBC Flagged by Analyzer 0 % (0-5); Neutrophil % 82.8 % (47-70); POSITIVE COUNT YES; Platelet Count 83 K/mm3 (150-450); RBC Distribution Width CV 14.5 % (11.6-14.6); RBC Distribution Width SD 49.2 fl (35.1-43.9); Red Blood Count 3.14 M/mm3 (4.2-5.4); White Blood Count 9.3 K/mm3 (4.4-11.0)
[2021-10-08 07:42] VITALS: BP 129/60; PULSE 91; RESP 18; TEMP 36.4; O2SAT 97
[2021-10-08 08:05] LABS: ALB/GLOB Ratio 0.3 RATIO (0.9-2.4); AST(SGOT) 159 U/L (15-37); Alanine Aminotransfer ALT/SGPT 86 U/L (13-56); Albumin, Serum 1.7 g/dL (3.2-5.0); Alkaline Phosphatase 886 U/L (45-117); Anion Gap 8 (5-15); BUN 15 mg/dL (7-18); BUN/Creat Ratio 16.7 RATIO (10-20); Chloride 105 mmol/L (98-107); EST Glomerular Filtration Rate 68 mL/min (>60); Est Glom Filt Rate - Afr Amer 82 mL/min (>60); Estimated Creatinine Clearance 58.32 ml/min; Globulin 5.1 g/dL (2.2-4.2); Glucose 116 mg/dL (74-106); Potassium 3.7 mmol/L (3.5-5.1); Protein, Total 6.8 g/dL (6.4-8.2); Sodium Level 136 mmol/L (136-145)
[2021-10-08 08:06] LABS: International Normalized Ratio 1.2; Prothrombin Time (Protime)PT. 15.1 SECONDS (11.7-14.9)
[2021-10-08] MEDS: Ursodiol 250 MG Tablet 500 MG PO ×2 (09:18→21:35)
[2021-10-08] MEDS: Senna Tablet 1 TABLET PO (09:18)
[2021-10-08] MEDS: Pantoprazole Sodium 40 MG Tablet PO (09:18)
[2021-10-08] MEDS: Potassium Chloride Oral Tablet 20 MEQ PO ×3 (09:18→16:03)
[2021-10-08] MEDS: carBAMazepine 200 MG Tablet PO ×2 (09:18→16:03)
[2021-10-08] MEDS: Ziprasidone HCl 20 MG Capsule PO ×2 (09:19→21:35)
[2021-10-08] MEDS: Benztropine 2 MG Tablet 1 MG PO (09:24)
--- NOTE | 2021-10-08 11:47 | RAD_ITS ---
STUDY: X-RAY - ABDOMEN/PELVIS REASON FOR EXAM: Female, 61 years old. abdominal distention TECHNIQUE: Single AP view of the abdomen / pelvis. COMPARISON: None. FINDINGS: Catheter fragment just to the right of the spine. There is an unremarkable bowel gas pattern. The visualized liver, spleen and kidneys are grossly normal in size and morphology. Normal soft tissue structures. Normal visualized osseous structures. RAD/Abdomen Single View (Portable) IMPRESSION: 1. Catheter fragment of the right of the spine. Clinical correlation is recommended. 2. No bowel obstruction. Electronically Signed: Corey Herman MD at 13:04 EDT ,
[2021-10-08 13:53] VITALS: BP 139/76; PULSE 108; RESP 18; TEMP 36.6; O2SAT 98
--- NOTE | 2021-10-08 14:47 | PCM.PN.HOSP ---
Documented by User: Darrell ZHENG 10/08/21 15:00 Subjective Subjective Patient is a 61-year-old female comfortably resting in bed, alert and orient x3. Patient denies development of any new symptoms overnight. Does not appear in acute distress. Objective Data Objective Data Vital Signs: Vital Signs Temp Pulse Resp BP Pulse Ox 97.8 F 108 H 18 139/76 H 98 10/08/21 13:53 10/08/21 13:53 10/08/21 13:53 10/08/21 13:53 10/08/21 13:53 Oxygen Flow Rate (L/min) 2 Oxygen Delivery Method Room Air Weight: 194 lb 14.218 oz Body Mass Index (BMI) 31.2 Intake & Output: Intake and Output for Last 24 Hours 10/06/21 10/07/21 10/08/21 23:59 23:59 23:59 Intake Total 1206 / 1206 1592.25 / 1592.25 793.75 / 793.75 Output Total 1300 / 1300 Balance 1206 / 1206 1592.25 / 1592.25 -506.25 / -506.25 Lab / Micro Data Result Diagrams: 10/08/21 06:45 10/08/21 06:45 Labs: Laboratory Results - last 24 hr 10/08/21 06:45: WBC 9.3, RBC 3.14 L, Hgb 9.2 L, Hct 29.2 L, MCV 93.0, MCH 29.3, MCHC 31.5 L, RDW Std Deviation 49.2 H, RDW Coeff of Russell 14.5, Plt Count 83 L, MPV 11.8, Immature Gran % (Auto) 0.800, Neut % (Auto) 82.8 H, Lymph % (Auto) 9.0 L, [place] % (Auto) 6.8, Eos % (Auto) 0.4, Baso % (Auto) 0.2, Absolute Neuts (auto) 7.7, Absolute Lymphs (auto) 0.84, Nucleated RBC % 0 10/08/21 06:45: PT 15.1 H, INR 1.2 10/08/21 06:45: Sodium 136, Potassium 3.7, Chloride 105, Carbon Dioxide 23.0, Anion Gap 8, BUN 15, Creatinine 0.90, Estim Creat Clear Calc 58.32, Est GFR (MDRD) Af Amer 82, Est GFR (MDRD) Non-Af 68, BUN/Creatinine Ratio 16.7, Glucose 116 H, Calcium 9.0, Total Bilirubin 13.90 H, AST 159 H, ALT 86 H, Alkaline Phosphatase 886 H, Total Protein 6.8, Albumin 1.7 L, Globulin 5.1 H, Albumin/Globulin Ratio 0.3 L Micro: Microbiology 10/06/21 08:55 Nasal Secretion SARS-CoV-2 Antigen (Rapid) - Final Radiography Diagnostic Testing: Radiology Impression KUB X-Ray 10/08/21 11:47 IMPRESSION: 1. Catheter fragment of the right of the spine. Clinical correlation is recommended. 2. No bowel obstruction. Electronically Signed: Corey Herman MD at 13:04 EDT , Physical Exam Const alert, oriented x3 and no apparent distress HEENT head/scalp atraumatic and moist oral mucous membranes Head and Scalp: normocephalic Eyes PERRL, EOMs intact bilaterally and conjunctivae normal Neck no lymphadenopathy, supple and no JVD Resp normal respiratory effort, no retractions and no use of accessory muscles Cardio regular rhythm and no JVD Rate: tachycardic GI normal to inspection, nondistended, normoactive bowel sounds and soft to palpation Extremity normal to inspection, full ROM and no clubbing, cyanosis or edema Skin no rashes or lesions noted, no wounds and skin turgor normal Neuro CN's II-XII intact bilaterally Psych affect normal Assessment & Plan Assessment/Plan (1) Cholangiocarcinoma: (2) Decompensated hepatic cirrhosis: (3) Liver mass: (4) Primary biliary cirrhosis: PLAN: Day 3 Discharge planning: To be determined. 1)Primary biliary cirrhosis Patient underwent ERCP on 10/06 which resulted in dilation and stenting of the common bile duct and biliary sphincterotomy. Patient is to continue Urosdiol therapy. 2) Cholangiocarcinoma Very extensive stricture noted on ERCP on 10/06. GI considering possible ERCP with spyglass versus percutaneous transhepatic Simona pancreatoscopy drainage. Evalutated by Heme/Onc on 10/07 and was deemed not to be a candidate for hemotherapy. Overall poor prognosis noted. Palliative care consult placed. 3) hyperammonemia Ammonia currently 60. Overall confusion seems to have been improved as patient is appropriately alert and oriented and able to interact appropriately. Continue lactulose 20 mg p.o. 3 times daily. 4) bipolar disorder Continue benztropine, carbamazepine, mirtazapine, topiramate and ziprasidone 5) hypothyroidism Continue Synthroid. 6) hyperlipidemia Continue statin. 7) overactive bladder Continue oxybutynin. 8) GERD Continue PPI. DVT prophylaxis- SCD's Patient seen by Darrell Mosqueda PA-C, under the supervision of Dr. Clarke. Time spent on patient care: 10 minutes. Documented by User: Dr. Indra Clarke, 10/08/21 15:08 Subjective Subjective Complains of abdominal distention. Objective Data Lab / Micro Data Result Diagrams: 10/08/21 06:45 10/08/21 06:45 Physical Exam Const alert, oriented x3, no apparent distress and average body habitus Resp normal respiratory effort, no retractions, no use of accessory muscles and clear to auscultation bilaterally Cardio regular rate, regular rhythm, S1 normal heart sound and S2 normal heart sound GI normal to inspection, nondistended, normoactive bowel sounds and soft to palpation GI Narrative: distended. tender. Extremity normal to inspection Skin Skin Narrative: jaundiced Neuro Sensorium / Orientation: awake and alert Psych affect normal Assessment & Plan Assessment/Plan (1) Cholangiocarcinoma: (2) Hyperammonemia: (3) Hyperbilirubinemia: PLAN: Patient seen and examined independently. Data and vitals reviewed. I agree with the above note by the physician assistant operations manager. Decompensated cirrhosis: Concern is for possibly obstructive jaundice due to possible primary biliary cirrhosis or other process. Patient underwent an ERCP on the and stent was placed in the common bile duct. Progress note from Dr. Randhawa noted pus in her bile duct. Concern was for seeding from the biopsy that may have caused a localized abscess. Currently on antibiotics with PIP Tazocin and vancomycin. I am unsure if patient has cholangitis but will be treated as such for the time being. GI to follow-up and determine if patient needs a repeat ERCP or percutaneous drainage. Portal vein thrombosis: Patient likely require anticoagulation but will hold off at this point given the pending procedure. Dr. Randhawa did request oncology's input. Did discuss case with Dr. Hanson today who states that the patient is okay for anticoagulation. We will hold off any full anticoagulation until we determine no additional procedures are needed at this time. Hyperammonia toxicity: Contributing to hepatic encephalopathy which is a toxic/metabolic encephalopathy. Secondary to cirrhosis. Start lactulose Liver mass: adenocarcinoma. Oncology on consult. No chemotherapy until bilirubin is less than 6. To 5 minutes of which was spent evaluating patient, discussing with the patient, reviewing documentation, vitals and lab work. Charges/Coding Visit Charges Inpatient E&M: 38841 [facility] Hosp L3
--- NOTE | 2021-10-08 15:31 | PCM.PROGNOTE ---
Subjective Subjective Patient looks about the same today. She denies any abdominal pain but still is very lethargic and has been sleeping most of the day. I had a long talk with her daughter and she is very upset regarding her mother's prognosis and recent diagnosis. Objective Data Objective Data Vital Signs: Vital Signs Temp Pulse Resp BP Pulse Ox 97.8 F 108 H 18 139/76 H 98 10/08/21 13:53 10/08/21 13:53 10/08/21 13:53 10/08/21 13:53 10/08/21 13:53 Oxygen Flow Rate (L/min) 2 Oxygen Delivery Method Room Air Weight: 194 lb 14.218 oz Body Mass Index (BMI) 31.2 Intake & Output: Intake and Output for Last 24 Hours 10/06/21 10/07/21 10/08/21 23:59 23:59 23:59 Intake Total 1206 / 1206 1592.25 / 1592.25 793.75 / 793.75 Output Total 1300 / 1300 Balance 1206 / 1206 1592.25 / 1592.25 -506.25 / -506.25 Lab / Micro Data Result Diagrams: 10/08/21 06:45 10/08/21 06:45 Labs: Laboratory Results - last 24 hr 10/08/21 06:45: WBC 9.3, RBC 3.14 L, Hgb 9.2 L, Hct 29.2 L, MCV 93.0, MCH 29.3, MCHC 31.5 L, RDW Std Deviation 49.2 H, RDW Coeff of Russell 14.5, Plt Count 83 L, MPV 11.8, Immature Gran % (Auto) 0.800, Neut % (Auto) 82.8 H, Lymph % (Auto) 9.0 L, [place] % (Auto) 6.8, Eos % (Auto) 0.4, Baso % (Auto) 0.2, Absolute Neuts (auto) 7.7, Absolute Lymphs (auto) 0.84, Nucleated RBC % 0 10/08/21 06:45: PT 15.1 H, INR 1.2 10/08/21 06:45: Sodium 136, Potassium 3.7, Chloride 105, Carbon Dioxide 23.0, Anion Gap 8, BUN 15, Creatinine 0.90, Estim Creat Clear Calc 58.32, Est GFR (MDRD) Af Amer 82, Est GFR (MDRD) Non-Af 68, BUN/Creatinine Ratio 16.7, Glucose 116 H, Calcium 9.0, Total Bilirubin 13.90 H, AST 159 H, ALT 86 H, Alkaline Phosphatase 886 H, Total Protein 6.8, Albumin 1.7 L, Globulin 5.1 H, Albumin/Globulin Ratio 0.3 L Micro: Microbiology 10/06/21 08:55 Nasal Secretion SARS-CoV-2 Antigen (Rapid) - Final Radiography Diagnostic Testing: Radiology Impression KUB X-Ray 10/08/21 11:47 IMPRESSION: 1. Catheter fragment of the right of the spine. Clinical correlation is recommended. 2. No bowel obstruction. Electronically Signed: Corey Herman MD at 13:04 EDT , Physical Exam Const alert General Appearance: cooperative Orientation / Consciousness: oriented to person HEENT hearing grossly normal bilaterally Head and Scalp: normal to inspection Face and Sinus: face symmetric Nose: external nose normal Mouth: oral and palatal mucosa normal Eyes conjunctivae normal General Eye: normal appearance of both eyes Neck full ROM General: normal visual inspection Lymph Lymphatic: no lymphadenopathy noted Chest inspection of chest normal and palpation of chest normal Chest: symmetrical chest wall rise Resp normal respiratory effort Effort and Inspection: able to speak in complete sentences Cardio regular rate GI non-distended Percussion: normal to percussion Rectal Exam: deferred Neuro Speech: speech normal Gait (Neuro): normal gait Assessment & Plan Assessment/Plan (1) Cholangiocarcinoma: PLAN: Cholangiocarcinoma with likely metastasis to the portal vein versus known portal vein thrombosis. Oncology was recommending anticoagulation. I am fine with anticoagulation. (2) Decompensated hepatic cirrhosis: PLAN: She is still rather lethargic and exhibiting hepatic encephalopathy. I will increase her lactulose therapy. (3) Hyperbilirubinemia: PLAN: Patient likely needs percutaneous drain or repeat ERCP with spyglass depending on whether she is going to be just palliative. Charges/Coding Visit Charges Inpatient E&M: 80185 Subs Hosp L2
[2021-10-08] MEDS: Benztropine Mesylate 0.5 MG TABLET PO (16:03)
[2021-10-08] MEDS: Tolterodine Tartrate 2 MG CAP.SA PO (16:03)
[2021-10-08 20:00] VITALS: BP 127/65; PULSE 100; RESP 16; TEMP 37.4; O2SAT 95
[2021-10-08] MEDS: Latanoprost 0.005% 1 Bottle 1 DRP EACH EYE (21:34)
[2021-10-08] MEDS: Atorvastatin Calcium 40 MG Tablet PO (21:35)
[2021-10-08] MEDS: Topiramate 25 MG Tablet PO (21:35)
[2021-10-09 02:00] VITALS: BP 127/78; PULSE 100; RESP 16; TEMP 37.2; O2SAT 95
[2021-10-09] MEDS: Ibuprofen 400 MG Tablet PO (02:32)
[2021-10-09 04:01] LABS: Absolute Lymphocyte Count 0.51 X10^3/uL (0.83-4.51); Absolute Neutrophil Count 7.8 X10^3/uL (2.0-7.7); Basophil# 0.01 X10^3/uL; Basophil% 0.1 % (0-1); Hematocrit 25.5 % (37-47); Hemoglobin 8.4 g/dL (12.0-15.0); Lymphocyte # 0.51 X10^3/ul (0.83-4.51); Lymphocyte % 5.7 % (19-41); Mean Corp Hgb Conc 32.9 g/dL (32-36); Mean Corpuscular Volume 91.1 fL (81-99); Mean Platelet Vol. 11.3 fl (6.2-12.0); Monocyte# 0.63 X10^3/uL; NRBC Flagged by Analyzer 0 % (0-5); Neutrophil # 7.75 X10^3/uL (2.7-7.7); Neutrophil % 86.4 % (47-70); POSITIVE COUNT YES; POSITIVE DIFFERENTIAL YES; Platelet Count 82 K/mm3 (150-450); RBC Distribution Width CV 14.4 % (11.6-14.6); RBC Distribution Width SD 48.3 fl (35.1-43.9)
[2021-10-09 04:11] LABS: International Normalized Ratio 1.2; Prothrombin Time (Protime)PT. 14.8 SECONDS (11.7-14.9)
[2021-10-09 04:14] LABS: Differential Indicated SCAN CRITERIA MET
[2021-10-09] MEDS: Ziprasidone HCl 20 MG Capsule 80 MG PO (04:19)
[2021-10-09 04:32] LABS: Differential Comment SCANNED
[2021-10-09 04:58] LABS: ALB/GLOB Ratio 0.3 RATIO (0.9-2.4); AST(SGOT) 133 U/L (15-37); Alanine Aminotransfer ALT/SGPT 77 U/L (13-56); Albumin, Serum 1.4 g/dL (3.2-5.0); Alkaline Phosphatase 796 U/L (45-117); Anion Gap 7 (5-15); BUN 11 mg/dL (7-18); BUN/Creat Ratio 14.6 RATIO (10-20); Calcium,Total 8.5 mg/dL (8.5-10.1); Chloride 106 mmol/L (98-107); Creatinine, Serum 0.75 mg/dL (0.55-1.02); EST Glomerular Filtration Rate 83 mL/min (>60); Est Glom Filt Rate - Afr Amer 101 mL/min (>60); Estimated Creatinine Clearance 69.98 ml/min; Globulin 4.8 g/dL (2.2-4.2); Glucose 124 mg/dL (74-106); Potassium 3.6 mmol/L (3.5-5.1); Protein, Total 6.2 g/dL (6.4-8.2); Sodium Level 136 mmol/L (136-145); Vancomycin, Trough Level 20.6 ug/mL (5.0-15.0)
--- NOTE | 2021-10-09 05:03 | NURSING ---
spoke to Indra from pharmacy made him aware pts vanco level 20.6. states ok to give vanco this am.
[2021-10-09] MEDS: Lactulose 20 GM/30 ML UDC PO ×3 (05:07→21:20)
[2021-10-09] MEDS: Levothyroxine 175 MCG Tablet 87.5 MCG PO (05:07)
--- NOTE | 2021-10-09 05:10 | PCM.RX.CS ---
Consult Pharmacy has been consulted to manage selected antiobiotic: Vancomycin Type of Consult: Follow-up Prior Doses of Antibiotics Received/Current Regimen: Medications Vancomycin HCl 1,500 mg/ (Sodium Chloride) 530 mls @ 250 mls/hr IV Q12H MAYA Last Admin: 10/09/21 05:07 Dose: 250 mls/hr Documented by: Labs: Sodium 136 mmol/L (136-145) 10/09/21 03:43 Potassium 3.6 mmol/L (3.5-5.1) 10/09/21 03:43 Chloride 106 mmol/L (98-107) 10/09/21 03:43 Carbon Dioxide 23.0 mmol/L (21.0-32.0) 10/09/21 03:43 Anion Gap 7 (5-15) 10/09/21 03:43 BUN 11 mg/dL (7-18) 10/09/21 03:43 Creatinine 0.75 mg/dL (0.55-1.02) 10/09/21 03:43 Est GFR (MDRD) Af Amer 101 mL/min (>60) 10/09/21 03:43 Est GFR (MDRD) Non-Af 83 mL/min (>60) 10/09/21 03:43 BUN/Creatinine Ratio 14.6 RATIO (10-20) 10/09/21 03:43 Glucose 124 mg/dL (74-106) H 10/09/21 03:43 Vancomycin Trough 20.6 ug/mL (5.0-15.0) H 10/09/21 03:43 Microbiology: Microbiology 10/06/21 08:55 Nasal Secretion SARS-CoV-2 Antigen (Rapid) - Final Weight used for dosin.4 kg Estimated Creatinine Clearance: 70 Goal Trough: 15-20 mcg/mL Pharmacy Plan for Drug Dosing: Vancomycin trough level of 20.6 was at the top of the target range of 15-20. SCr did show improvement to 0.75, so will continue same vanco dosing and re-draw a trough in 4 doses. Pharmacy Service will continue to monitor and adjust dosing as required. Follow-Up Labs: Trough Vancomycin Labs to be done on [date and time ordered]: 10/10/21 @4557
[2021-10-09] MEDS: Senna Tablet 1 TABLET PO (09:27)
[2021-10-09] MEDS: Benztropine 2 MG Tablet 1 MG PO (09:27)
[2021-10-09] MEDS: Potassium Chloride Oral Tablet 20 MEQ PO ×3 (09:27→16:56)
[2021-10-09] MEDS: Pantoprazole Sodium 40 MG Tablet PO (09:28)
[2021-10-09] MEDS: Ursodiol 250 MG Tablet 500 MG PO ×2 (09:28→21:21)
[2021-10-09] MEDS: carBAMazepine 200 MG Tablet PO ×2 (09:28→16:56)
[2021-10-09] MEDS: Ziprasidone HCl 20 MG Capsule PO ×2 (09:29→21:21)
[2021-10-09 09:30] VITALS: BP 106/63; PULSE 91; RESP 18; TEMP 37.1; O2SAT 94
--- NOTE | 2021-10-09 11:39 | PN.HOSP_ITS ---
Documented by User: Darrell ZHENG 10/09/21 11:46 Subjective Subjective Patient is a 61-year-old female comfortably resting in bed, alert and orient x3. Patient denies development of any new symptoms overnight. Does not appear in acute distress. Objective Data Objective Data Vital Signs: Vital Signs Temp Pulse Resp BP Pulse Ox 98.8 F 91 18 106/63 94 10/09/21 09:30 10/09/21 09:30 10/09/21 09:30 10/09/21 09:30 10/09/21 09:30 Oxygen Flow Rate (L/min) 2 Oxygen Delivery Method Room Air Weight: 191 lb 5.78 oz Body Mass Index (BMI) 31.2 Intake & Output: Intake and Output for Last 24 Hours 10/07/21 10/08/21 10/09/21 23:59 23:59 23:59 Intake Total 1592.25 / 1592.25 1373.75 / 1373.75 1232.25 / 1232.25 Output Total 2750 / 3050 700 / 700 Balance 1592.25 / 1592.25 -1376.25 / -1676.25 532.25 / 532.25 Lab / Micro Data Result Diagrams: 10/09/21 03:43 10/09/21 03:43 Labs: Laboratory Results - last 24 hr 10/09/21 03:43: WBC 9.0, RBC 2.80 L, Hgb 8.4 L, Hct 25.5 L, MCV 91.1, MCH 30.0, MCHC 32.9, RDW Std Deviation 48.3 H, RDW Coeff of Russell 14.4, Plt Count 82 L, MPV 11.3, Immature Gran % (Auto) 0.800, Neut % (Auto) 86.4 H, Lymph % (Auto) 5.7 L, [place] % (Auto) 7.0, Eos % (Auto) 0.0, Baso % (Auto) 0.1, Absolute Neuts (auto) 7.8 H, Absolute Lymphs (auto) 0.51 L, Nucleated RBC % 0, Differential Comment SCANNED 10/09/21 03:43: PT 14.8, INR 1.2 10/09/21 03:43: Sodium 136, Potassium 3.6, Chloride 106, Carbon Dioxide 23.0, Anion Gap 7, BUN 11, Creatinine 0.75, Estim Creat Clear Calc 69.98, Est GFR (MDRD) Af Amer 101, Est GFR (MDRD) Non-Af 83, BUN/Creatinine Ratio 14.6, Glucose 124 H, Calcium 8.5, Total Bilirubin 12.30 H, AST 133 H, ALT 77 H, Alkaline Phosphatase 796 H, Total Protein 6.2 L, Albumin 1.4 L, Globulin 4.8 H, Albumin/Globulin Ratio 0.3 L 10/09/21 03:43: Vancomycin Trough 20.6 H Micro: Microbiology 10/06/21 08:55 Nasal Secretion SARS-CoV-2 Antigen (Rapid) - Final Radiography Diagnostic Testing: Radiology Impression KUB X-Ray 10/08/21 11:47 IMPRESSION: 1. Catheter fragment of the right of the spine. Clinical correlation is recommended. 2. No bowel obstruction. Electronically Signed: oCrey Herman MD at 13:04 EDT , Physical Exam Const alert, oriented x3 and no apparent distress HEENT head/scalp atraumatic and moist oral mucous membranes Head and Scalp: normocephalic Eyes PERRL, EOMs intact bilaterally and conjunctivae normal Eyes Narrative: Bilateral jaundice Neck no lymphadenopathy, supple and no JVD Resp normal respiratory effort, no retractions and no use of accessory muscles Cardio regular rate, regular rhythm and no JVD GI normal to inspection, nondistended, normoactive bowel sounds and soft to palpation Extremity normal to inspection, full ROM and no clubbing, cyanosis or edema Skin Skin Narrative: Jaundice slightly improved, still present throughout. Neuro CN's II-XII intact bilaterally Psych affect normal Assessment & Plan Assessment/Plan (1) Cholangiocarcinoma: (2) Decompensated hepatic cirrhosis: (3) Liver mass: (4) Primary biliary cirrhosis: PLAN: Day 4 Discharge planning: To be determined. 1)Primary biliary cirrhosis Patient underwent ERCP on 10/06 which resulted in dilation and stenting of the common bile duct and biliary sphincterotomy. Patient is to continue Urosdiol th erapy. 2) Cholangiocarcinoma Very extensive stricture noted on ERCP on 10/06. GI considering possible ERCP with spyglass versus percutaneous transhepatic Simona pancreatoscopy drainage. Evalutated by Heme/Onc on 10/07 and was deemed not to be a candidate for hemotherapy. Overall poor prognosis noted. Palliative care consult placed. Awaiting decision about further invasive intervention before initiating anticoagulation. 3) hyperammonemia Ammonia currently 60. Overall confusion seems to have been improved as patient is appropriately alert and oriented and able to interact appropriately. Con tinue lactulose 20 mg p.o. 3 times daily. 4) bipolar disorder Continue benztropine, carbamazepine, mirtazapine, topiramate and ziprasidone 5) hypothyroidism Continue Synthroid. 6) hyperlipidemia Continue statin. 7) overactive bladder Continue oxybutynin. 8) GERD Continue PPI. DVT prophylaxis- SCD's Patient seen by Darrell Mosqueda PA-C, under the supervision of Dr. Clarke. Time spent on patient care: 9 minutes. Documented by User: Dr. Indra Clarke, 10/09/21 12:21 Subjective Subjective Noted to be more confused per her daughter. Her daughter thinks the jaundice may be improving. Objective Data Lab / Micro Data Result Diagrams: 10/09/21 03:43 10/09/21 03:43 Physical Exam Const Constitutional Narrative: Alert and oriented x3. Speech is slurred. Eyes Eyes Narrative: Icterus Resp normal respiratory effort, no retractions, no use of accessory muscles and clear to auscultation bilaterally Cardio regular rate, regular rhythm, S1 normal heart sound and S2 normal heart sound GI normal to inspection, nondistended, normoactive bowel sounds, soft to palpation, non-tender and non-distended Extremity normal to inspection Skin Skin Narrative: Jaundice. Pulm erythema. Neuro oriented x3 Sensorium / Orientation: awake Assessment & Plan Assessment/Plan (1) Decompensated hepatic cirrhosis: PLAN: Patient seen and examined independently. Data and vitals reviewed. I agree with the above note by the physician janitorial assistant. Decompensated cirrhosis: Concern is for possibly obstructive jaundice due to possible primary biliary cirrhosis or other process. Patient underwent an ERCP on the and stent was placed in the common bile duct. Progress note from Dr. Randhawa noted pus in her bile duct. Concern was for seeding from the biopsy that may have caused a localized abscess. Currently on antibiotics with PIP Tazocin and vancomycin. I am unsure if patient has cholangitis but will be treated as such for the time being. GI to follow-up and determine if patient needs a repeat ERCP or percutaneous drainage. Portal vein thrombosis: Patient likely require anticoagulation but will hold off at this point given the pending procedure. Dr. Randhawa did request oncology's input. Did discuss case with Dr. Hanson today who states that the patient is okay for anticoagulation. We will hold off any full anticoagulation until we determine no additional procedures are needed at this time. Hyperammonia toxicity: Contributing to hepatic encephalopathy which is a toxic/metabolic encephalopathy. Secondary to cirrhosis. Start lactulose Liver mass: adenocarcinoma. Oncology on consult. No chemotherapy until bilirubin is less than 6. To 35 minutes of which was spent evaluating patient, discussing with the patient and her daughter, reviewing documentation, vitals and lab work. Charges/Coding Visit Charges Inpatient E&M: 92486 [facility] Hosp L3
[2021-10-09 14:30] VITALS: BP 116/57; PULSE 69; RESP 18; TEMP 36.6; O2SAT 95
[2021-10-09] MEDS: Benztropine Mesylate 0.5 MG TABLET PO (16:55)
[2021-10-09] MEDS: Tolterodine Tartrate 2 MG CAP.SA PO (16:55)
[2021-10-09 21:04] VITALS: BP 129/68; PULSE 90; RESP 18; TEMP 36.9; O2SAT 96
[2021-10-09] MEDS: Topiramate 25 MG Tablet PO (21:21)
[2021-10-09] MEDS: Atorvastatin Calcium 40 MG Tablet PO (21:21)
[2021-10-09] MEDS: Latanoprost 0.005% 1 Bottle 1 DRP EACH EYE (21:22)
[2021-10-10] VITALS (7 sets, daily range): BP systolic 130–132; BP diastolic 59–74; PULSE 90–96; RESP 16–18; TEMP 36.7–37.4; O2SAT 94–97
--- NOTE | 2021-10-10 02:56 | NURSING ---
Pt states she is going to refuse her 4am Geodon. States it has been making her too tired.
[2021-10-10] MEDS: Levothyroxine 175 MCG Tablet PO (05:33)
[2021-10-10] MEDS: Lactulose 20 GM/30 ML UDC PO (05:34)
[2021-10-10 06:32] LABS: Absolute Lymphocyte Count 0.75 X10^3/uL (0.83-4.51); Absolute Neutrophil Count 5.3 X10^3/uL (2.0-7.7); Basophil# 0.02 X10^3/uL; Basophil% 0.3 % (0-1); Eosinophil# 0.04 X10^3/uL; Eosinophils% 0.6 % (0-5); Hemoglobin 8.2 g/dL (12.0-15.0); Lymphocyte # 0.75 X10^3/ul (0.83-4.51); Lymphocyte % 11.1 % (19-41); Mean Corp Hgb Conc 32.8 g/dL (32-36); Mean Corpuscular Hgb 29.9 pg (27.0-32.0); Mean Corpuscular Volume 91.2 fL (81-99); Mean Platelet Vol. 11.6 fl (6.2-12.0); Monocyte# 0.64 X10^3/uL; Monocyte% 9.5 % (0-10); NRBC Flagged by Analyzer 0.3 % (0-5); Neutrophil # 5.26 X10^3/uL (2.7-7.7); Neutrophil % 77.8 % (47-70); POSITIVE COUNT YES; Platelet Count 85 K/mm3 (150-450); RBC Distribution Width CV 14.7 % (11.6-14.6); RBC Distribution Width SD 49.1 fl (35.1-43.9); Red Blood Count 2.74 M/mm3 (4.2-5.4); White Blood Count 6.8 K/mm3 (4.4-11.0)
[2021-10-10 06:58] LABS: ALB/GLOB Ratio 0.3 RATIO (0.9-2.4); AST(SGOT) 131 U/L (15-37); Alanine Aminotransfer ALT/SGPT 74 U/L (13-56); Albumin, Serum 1.4 g/dL (3.2-5.0); Alkaline Phosphatase 813 U/L (45-117); Anion Gap 7 (5-15); BUN 11 mg/dL (7-18); BUN/Creat Ratio 14.6 RATIO (10-20); Calcium,Total 8.4 mg/dL (8.5-10.1); Chloride 107 mmol/L (98-107); Creatinine, Serum 0.75 mg/dL (0.55-1.02); EST Glomerular Filtration Rate 83 mL/min (>60); Est Glom Filt Rate - Afr Amer 101 mL/min (>60); Estimated Creatinine Clearance 69.98 ml/min; Globulin 4.8 g/dL (2.2-4.2); Glucose 110 mg/dL (74-106); Potassium 3.4 mmol/L (3.5-5.1); Protein, Total 6.2 g/dL (6.4-8.2); Sodium Level 136 mmol/L (136-145)
[2021-10-10] MEDS: Potassium Chloride Oral Tablet 20 MEQ PO ×3 (07:42→17:22)
[2021-10-10] MEDS: Benztropine 2 MG Tablet 1 MG PO (07:42)
[2021-10-10] MEDS: Ursodiol 250 MG Tablet 500 MG PO ×2 (07:42→22:00)
[2021-10-10] MEDS: carBAMazepine 200 MG Tablet PO ×2 (07:42→17:22)
[2021-10-10] MEDS: Pantoprazole Sodium 40 MG Tablet PO (07:43)
[2021-10-10] MEDS: Ziprasidone HCl 20 MG Capsule PO (07:44)
--- NOTE | 2021-10-10 14:58 | CASEMGMT ---
Addendum entered by Nimco Reyes 10/10/21 15:37: TC to Hospice, spoke with Leanne, asked for referral to be faxed to [phone]. Faxed referral at this time. Original Note: Notified palliative care that pt plan is to go home with hospice at this time.
--- NOTE | 2021-10-10 15:05 | CHAPLAIN ---
Type of Pastoral Visit _x__ Initial Visit ___ Follow-up Visit ___ On-call Visit ___ General Patient Visit ___ Spiritual Assessment ___ Family Conference ___ Bereavement ___ Rapid Response ___ Code Blue ___ Other (describe below) Pastoral Care Referral From _x__ Patient ___ Family ___ Nurse ___ Physician ___ Vehicle Care Specialist ___ Director Alumni Relations _x__ Other (describe below) Sacrament/Intervention _x__ Active listening ___ Anointing ___ Temple ___ Bereavement ___ Communion _x__ Grace exploration ___ _x__ Life review _x__ Prayer ___ Reconciliation ___ Sacrament of Sick _x__ Supportive presence ___ Wedding ___ Other (describe below) Pastoral Comments Dietary staff notified this leather goods maker that patient had expressed her situation and feelings and that she acknowledged a desire to talk with a leather goods maker; sat with patient at her bedside as she described some life history, her experiences with parents , her own illness and feeling that she had a short time to live; pt has made decision to enter hospice care; pt asks questions of spiritual nature and eternal life beliefs; pt requests prayers for her family and her last wishes; presence and prayer given; support available as patient would remain in hospital
--- NOTE | 2021-10-10 15:10 | PN.HOSP_ITS ---
Subjective Subjective Patient is a 61-year-old female resting in bed, alert and orient x3. Jaundice appears improved from yesterday. Patient also more interactive today. Expresses desire to want to go hospice. Objective Data Objective Data Vital Signs: Vital Signs Temp Pulse Resp BP Pulse Ox 98.8 F 90 18 130/68 H 97 10/10/21 12:00 10/10/21 12:00 10/10/21 12:00 10/10/21 12:00 10/10/21 12:00 Oxygen Flow Rate (L/min) 2 Oxygen Delivery Method Room Air Weight: 191 lb 5.78 oz Body Mass Index (BMI) 31.2 Intake & Output: Intake and Output for Last 24 Hours 10/08/21 10/09/21 10/10/21 23:59 23:59 23:59 Intake Total 1373.75 / 1373.75 2332.25 / 2332.25 1462.00 / 1462.00 Output Total 2750 / 3050 700 / 700 Balance -1376.25 / -1676.25 1632.25 / 1632.25 1462.00 / 1462.00 Lab / Micro Data Result Diagrams: 10/10/21 06:05 10/10/21 06:05 Labs: Laboratory Results - last 24 hr 10/10/21 06:05: WBC 6.8, RBC 2.74 L, Hgb 8.2 L, Hct 25.0 L, MCV 91.2, MCH 29.9, MCHC 32.8, RDW Std Deviation 49.1 H, RDW Coeff of Russell 14.7 H, Plt Count 85 L, MPV 11.6, Immature Gran % (Auto) 0.700, Neut % (Auto) 77.8 H, Lymph % (Auto) 11.1 L, [place] % (Auto) 9.5, Eos % (Auto) 0.6, Baso % (Auto) 0.3, Absolute Neuts (auto) 5.3, Absolute Lymphs (auto) 0.75 L, Nucleated RBC % 0.3 10/10/21 06:05: Sodium 136, Potassium 3.4 L, Chloride 107, Carbon Dioxide 22.0, Anion Gap 7, BUN 11, Creatinine 0.75, Estim Creat Clear Calc 69.98, Est GFR (MDRD) Af Amer 101, Est GFR (MDRD) Non-Af 83, BUN/Creatinine Ratio 14.6, Glucose 110 H, Calcium 8.4 L, Total Bilirubin 11.90 H, AST 131 H, ALT 74 H, Alkaline Phosphatase 813 H, Total Protein 6.2 L, Albumin 1.4 L, Globulin 4.8 H, Albumin/G lobulin Ratio 0.3 L Micro: Microbiology 10/06/21 16:25 Blood Culture (Wb) - Right Hand Blood Culture - Preliminary No growth in 48 hours. 10/06/21 16:17 Blood Culture (Wb) - Anticubital Right Blood Culture - Preliminary No growth in 48 hours. 10/06/21 08:55 Nasal Secretion SARS-CoV-2 Antigen (Rapid) - Final Physical Exam Const alert, oriented x3 and no apparent distress HEENT head/scalp atraumatic and moist oral mucous membranes Head and Scalp: normocephalic Eyes PERRL, EOMs intact bilaterally and conjunctivae normal Neck no lymphadenopathy, supple and no JVD Resp normal respiratory effort, no retractions and no use of accessory muscles Cardio regular rate, regular rhythm and no JVD GI normal to inspection, nondistended, normoactive bowel sounds and soft to palpation Extremity normal to inspection, full ROM and no clubbing, cyanosis or edema Skin no rashes or lesions noted, no wounds and skin turgor normal Neuro CN's II-XII intact bilaterally Psych affect normal Assessment & Plan Assessment/Plan (1) Cholangiocarcinoma: (2) Decompensated hepatic cirrhosis: (3) Liver mass: (4) Primary biliary cirrhosis: PLAN: Day 5 Discharge planning: Discharge with hospice. 1)Primary biliary cirrhosis Patient underwent ERCP on 10/06 which resulted in dilation and stenting of the common bile duct and biliary sphincterotomy. We were awaiting decision from GI about whether to proceed with additional ERCP or transcutaneous drainage, although patient and family expressed desire to want to go hospice at this time. We will continue ursodiol and lactulose therapy, however will forego any additional procedures. 2) Cholangiocarcinoma Very extensive stricture noted on ERCP on 10/06. Family and patient expressed desire to want to go hospice as above, we will forego any additional procedures as well as anticoagulation. 3) hyperammonemia Ammonia currently 60. Overall confusion seems to have been improved as patient is appropriately alert and oriented and able to interact appropriately. Continue lactulose 20 mg p.o. 3 times daily. 4) bipolar disorder Continue benztropine, carbamazepine, mirtazapine, topiramate and ziprasidone 5) hypothyroidism Continue Synthroid. 6) hyperlipidemia Continue statin. 7) overactive bladder Continue oxybutynin. 8) GERD Continue PPI. DVT prophylaxis- SCD's Patient seen by Darrell Mosqueda PA-C, under the supervision of Dr. Clarke. Time spent on patient care: 9 minutes.
[2021-10-10] MEDS: Tolterodine Tartrate 2 MG CAP.SA PO (17:22)
[2021-10-10] MEDS: Benztropine Mesylate 0.5 MG TABLET PO (17:23)
--- NOTE | 2021-10-10 18:19 | CASEMGMT ---
Social Work ANTHONY met with pt, pt dgt Modesta, pt sister and two friends. SW spoke with pt regarding news from physician and pt clearly stating her wishes are for no aggressive treatment and to return home with hospice. Pt informed that referral has been made to hospice and they will reach out to pt or dgt to set up an appointment. SW discussed with pt and family that hospice does not provide 24 hour care and if pt returns home, she will need 24 hour caregiver. Pt dgt states she is unable to provide this level of care. ANTHONY explained inpatient Hospice unit and that pt must meet qualifications for inpatient unit and pt likely does not meet these qualifications at this time. ANTHONY then spoke to pt regarding ECF placement with hospice services. Dgt then requested to speak with SW outside room. Support provided to dgt. Dgt feels pt will need ECF as family and friends cannot provide level of care needed. ANTHONY provided Modesta with list of ECF providers including quality and resource use data and consistent with the patient's preferred geographic region, medical needs and insurance network. Modesta will speak with pt yesenia and have decision on facility in the morning. SW to continue to follow. Plan: ECF with hospice care FLORIN Oliver
--- NOTE | 2021-10-10 19:24 | PCM.PROGNOTE ---
Subjective Subjective Patient is feeling a lot better. She still jaundiced but she is more coherent. Objective Data Objective Data Vital Signs: Vital Signs Temp Pulse Resp BP Pulse Ox 98.1 F 94 16 131/59 H 97 10/10/21 17:00 10/10/21 17:00 10/10/21 17:00 10/10/21 17:00 10/10/21 17:00 Oxygen Flow Rate (L/min) 2 Oxygen Delivery Method Room Air Weight: 191 lb 5.78 oz Body Mass Index (BMI) 31.2 Intake & Output: Intake and Output for Last 24 Hours 10/08/21 10/09/21 10/10/21 23:59 23:59 23:59 Intake Total 1373.75 / 1373.75 2332.25 / 2332.25 1662.00 / 1662.00 Output Total 2750 / 3050 700 / 700 Balance -1376.25 / -1676.25 1632.25 / 1632.25 1662.00 / 1662.00 Lab / Micro Data Result Diagrams: 10/10/21 06:05 10/10/21 06:05 Labs: Laboratory Results - last 24 hr 10/10/21 06:05: WBC 6.8, RBC 2.74 L, Hgb 8.2 L, Hct 25.0 L, MCV 91.2, MCH 29.9, MCHC 32.8, RDW Std Deviation 49.1 H, RDW Coeff of Russell 14.7 H, Plt Count 85 L, MPV 11.6, Immature Gran % (Auto) 0.700, Neut % (Auto) 77.8 H, Lymph % (Auto) 11.1 L, [place] % (Auto) 9.5, Eos % (Auto) 0.6, Baso % (Auto) 0.3, Absolute Neuts (auto) 5.3, Absolute Lymphs (auto) 0.75 L, Nucleated RBC % 0.3 10/10/21 06:05: Sodium 136, Potassium 3.4 L, Chloride 107, Carbon Dioxide 22.0, Anion Gap 7, BUN 11, Creatinine 0.75, Estim Creat Clear Calc 69.98, Est GFR (MDRD) Af Amer 101, Est GFR (MDRD) Non-Af 83, BUN/Creatinine Ratio 14.6, Glucose 110 H, Calcium 8.4 L, Total Bilirubin 11.90 H, AST 131 H, ALT 74 H, Alkaline Phosphatase 813 H, Total Protein 6.2 L, Albumin 1.4 L, Globulin 4.8 H, Albumin/Globulin Ratio 0.3 L Micro: Microbiology 10/06/21 16:25 Blood Culture (Wb) - Right Hand Blood Culture - Preliminary No growth in 48 hours. 10/06/21 16:17 Blood Culture (Wb) - Anticubital Right Blood Culture - Preliminary No growth in 48 hours. 10/06/21 08:55 Nasal Secretion SARS-CoV-2 Antigen (Rapid) - Final Physical Exam Const alert General Appearance: cooperative Orientation / Consciousness: oriented to person HEENT hearing grossly normal bilaterally Head and Scalp: normal to inspection Face and Sinus: face symmetric Nose: external nose normal Mouth: oral and palatal mucosa normal Eyes conjunctivae normal General Eye: normal appearance of both eyes Neck full ROM General: normal visual inspection Lymph Lymphatic: no lymphadenopathy noted Chest inspection of chest normal and palpation of chest normal Chest: symmetrical chest wall rise Resp normal respiratory effort Effort and Inspection: able to speak in complete sentences Cardio regular rate GI non-distended Percussion: normal to percussion Rectal Exam: deferred Skin General Skin Exam: jaundice Neuro Speech: speech normal Gait (Neuro): normal gait Assessment & Plan Assessment/Plan (1) Cholangiocarcinoma: PLAN: Cholangiocarcinoma with obstruction at the hilar area status post ERCP with stenting in the left lobe of the liver. The the right hepatic stricture was not able to be cannulated. There is a possibility of palliative stenting of the right hepatic system. However patient has elected to proceed with hospice care.. She should continue antibiotic therapy for 14-day course and after that she should stay on Levaquin 250 mg a day. (2) Decompensated hepatic cirrhosis: PLAN: Patient should continue lactulose therapy 20 cc every 6 hours to prevent further decompensated liver disease (3) Primary biliary cirrhosis: PLAN: She is to be on ursodiol twice a day. Charges/Coding Visit Charges Inpatient E&M: 42621 Subs Hosp L2
[2021-10-10] MEDS: Topiramate 25 MG Tablet PO (22:00)
[2021-10-10] MEDS: Latanoprost 0.005% 1 Bottle 1 DRP EACH EYE (22:00)
[2021-10-11] MEDS: Ibuprofen 400 MG Tablet PO (00:48)
[2021-10-11 03:24] VITALS: BP 123/69; PULSE 83; RESP 18; TEMP 36.8; O2SAT 95
[2021-10-11] MEDS: Levothyroxine 175 MCG Tablet PO (03:28)
[2021-10-11 08:26] VITALS: BP 123/63; PULSE 85; RESP 16; TEMP 36.6; O2SAT 93
[2021-10-11] MEDS: carBAMazepine 200 MG Tablet PO (09:14)
[2021-10-11] MEDS: Potassium Chloride Oral Tablet 20 MEQ PO (09:14)
[2021-10-11] MEDS: Ziprasidone HCl 20 MG Capsule PO (09:16)
[2021-10-11] MEDS: Pantoprazole Sodium 40 MG Tablet PO (09:16)
[2021-10-11] MEDS: Ursodiol 250 MG Tablet 500 MG PO (09:17)
[2021-10-11] MEDS: Benztropine 2 MG Tablet 1 MG PO (10:22)
--- NOTE | 2021-10-11 10:35 | CASEMGMT ---
Social Work SW met with pt and dgt Modesta to discuss discharge plan. Pt is sitting in bed, awake and A&O x3. Pt is able to communicate clearly that she is aware that she will need to go to ECF. Pt and dgt have been reviewing ECF list and choices are 1. [facility] [address] [facility] [address] SW then spoke with pt regarding Hospice. SW explained hospice services in the ECF setting. Hospice referral was made yesterday, and when they called pt to schedule pt declined services. After conversation, pt stating she know understands hospice and would like to sign on with services. SW spoke with pt regarding advance directives. SW asked pt if dgt could leave the room for this discussion. Pt stating no, she wants dgt present to hear. SW explained both living will and health care POA at length. Dgt remained silent during conversation with pt. Pt choosing dgt Modesta Dumont as Primary HCPOA with pt adamantly stating no second or third person. Pt also completed a living will. Copies of documents placed on chart and originals given to pt. Phone call to Olivia at [facility] and they are able to accept pt. Precert for long-term placement will be needed. Phone call to Reagan at [facility] and requested management expert reach back out to pt or dgt to set an appointment for today as pt is now accepting of hospice services. Pt and dgt made aware that [facility] can accept and to expect phone call from hospice. Plan: [facility], intermediate care pending precert, with hospice services FLORIN Oliver
--- NOTE | 2021-10-11 12:00 | PCM.PROGNOTE ---
Subjective Subjective Patient continues to get better and her jaundice is still improving. She is able to tolerate a diet. Objective Data Objective Data Vital Signs: Vital Signs Temp Pulse Resp BP Pulse Ox 98.1 F 97 16 144/82 H 99 10/11/21 14:12 10/11/21 14:12 10/11/21 14:12 10/11/21 14:12 10/11/21 14:12 Oxygen Flow Rate (L/min) 2 Oxygen Delivery Method Room Air Weight: 200 lb Body Mass Index (BMI) 31.2 Intake & Output: Intake and Output for Last 24 Hours 10/09/21 10/10/21 10/11/21 23:59 23:59 23:59 Intake Total 2332.25 / 2332.25 1662.00 / 1662.00 200 / 200 Output Total 700 / 700 Balance 1632.25 / 1632.25 1662.00 / 1662.00 200 / 200 Lab / Micro Data Result Diagrams: 10/10/21 06:05 10/10/21 06:05 Micro: Microbiology 10/11/21 15:30 Nasal Secretion SARS-CoV-2 Antigen (Rapid) - Final 10/06/21 16:25 Blood Culture (Wb) - Right Hand Blood Culture - Preliminary No growth in 48 hours. 10/06/21 16:17 Blood Culture (Wb) - Anticubital Right Blood Culture - Preliminary No growth in 48 hours. 10/06/21 08:55 Nasal Secretion SARS-CoV-2 Antigen (Rapid) - Final Physical Exam Const alert General Appearance: cooperative Orientation / Consciousness: oriented to person HEENT hearing grossly normal bilaterally Head and Scalp: normal to inspection Face and Sinus: face symmetric Nose: external nose normal Mouth: oral and palatal mucosa normal Eyes conjunctivae normal General Eye: normal appearance of both eyes Neck full ROM General: normal visual inspection Lymph Lymphatic: no lymphadenopathy noted Chest inspection of chest normal and palpation of chest normal Chest: symmetrical chest wall rise Resp normal respiratory effort Effort and Inspection: able to speak in complete sentences Cardio regular rate GI non-distended Percussion: normal to percussion Rectal Exam: deferred Neuro Speech: speech normal Gait (Neuro): normal gait Assessment & Plan Assessment/Plan (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 Hopefully her jaundice will continue to improve. I would continue ursodiol therapy. I would also continue antibiotic therapy (2) Decompensated hepatic cirrhosis: PLAN: Decompensated cirrhosis. Continue lactulose therapy. I would not recommend beta-sven therapy for varices. Charges/Coding Visit Charges Inpatient E&M: 96437 Subs Hosp L2
[2021-10-11 14:12] VITALS: BP 144/82; PULSE 97; RESP 16; TEMP 36.7; O2SAT 99
--- NOTE | 2021-10-11 14:55 | PCM.TXEXTCAR ---
Documented by User: Darrell ZHENG 10/11/21 15:04 Diet 10/06/21 15:34 Diet: Regular - General Is pt able to select menu?: Yes Therapies Weight Bearing: Weight bearing as tolerated Physical Therapy: Eval and Treat Occupational Therapy: Eval and Treat Problem/Diagnosis (1) Cholangiocarcinoma: Status: Acute (2) Decompensated hepatic cirrhosis: Status: Acute (3) Primary biliary cirrhosis: Status: Acute Allergies/Procedures Done in Hospital Allergies codeine Adverse Reaction (Verified 10/05/21 12:56) Other naproxen [From Naprosyn] Adverse Reaction (Verified 01/10/17 23:06) Other HEART RACES Type of Care/Length of Stay Estimated LOS: More Than 30 Days Type of Care Needed: Intermediate Rehab Potential: Poor Prognosis: Poor Additional Orders/Day of Discharge Day of Discharge: 10/11/21 Dietary and Speech Recommendations Dietitian Recommendations/Changes: Continue Regular diet as ordered Will provide chocolate ensure pudding w/ meals for increased nutrition if consumed. Discharge Plan Admission Admit Date/Time: 10/05/21 18:05 Primary Reason for Your Visit: Confusion Attending Provider: Lesvia Marrero Primary Care Provider: Calin Devries Consulting Providers: Nicola Edgar ; Jair Busby ; Yessica Bashir ; Turner Godfrey ; Raudel Gotti ; Kory Hanson ; Krystle Rogers ; Adama Granados ; Jane Steel ; Alina Ceballos ; Franchesca Cook ; Mana Lockhart CONSULTANT TEACHER ; Indra Clarke Discharge Orders/Prescriptions Prescriptions: New lactulose 20 gram/30 mL Solution 20 g PO TID Qty: 90 RF: 0 levofloxacin 500 mg tablet 500 mg PO DAILY Qty: 14 RF: 0 Continued latanoprost 1 DROP bottle 1 drp Each Eye QHS RF: 0 atorvastatin 80 MG tablet 40 mg PO QHS RF: 0 topiramate 25 MG tablet 25 mg PO QHS RF: 0 carbamazepine 200 MG tablet 200 mg PO BIDCM RF: 0 levothyroxine 150 MCG tablet 175 mcg PO MOTUWETHFR RF: 0 ibuprofen 200 MG tablet 400 mg PO Q6H PRN PRN (Reason: Mod-Severe (Pain Scale 6-10)) RF: 0 cholecalciferol (vitamin D3) 5,000 UNIT capsule 10,000 unit PO DAILY RF: 0 ziprasidone HCl 80 mg Capsule 80 mg PO BIDCM RF: 0 benztropine 0.5 mg Tablet 0.5 mg PO DINNER RF: 0 ziprasidone HCl 20 mg Capsule 20 mg PO BID RF: 0 pantoprazole 40 mg Tablet,Delayed Release (Dr/Ec) 40 mg PO DAILY RF: 0 benztropine 1 mg Tablet 1 mg PO DAILY RF: 0 oxybutynin chloride 5 mg Tablet Extended Release 24hr 10 mg PO DINNER RF: 0 Acidophilus Ex Str (L. sporog) 35 million- 25 million cell Tablet 1 tab PO DAILY RF: 0 potassium chloride 20 mEq Tablet Extended Release 20 meq PO TID RF: 0 levothyroxine 175 mcg Tablet 87.5 mcg PO SUSA RF: 0 sennosides [senna] 8.6 mg Tablet 8.6 mg PO BID RF: 0 promethazine 25 mg Tablet 25 mg PO Q6H PRN (Reason: Nausea) RF: 0 morphine [MS Contin] 15 mg Tablet Extended Release 15 mg PO Q12H PRN (Reason: Pain) RF: 0 mirtazapine 15 mg Tablet 15 mg PO QHS PRN (Reason: Insomnia) RF: 0 ursodiol 500 mg Tablet 500 mg PO BID RF: 0 Referrals / Follow Up: Calin Devries DO [Primary Care Provider] - Within 2 Weeks Kory Hanson DO [STAFF PHYSICIAN] - Within 2 Weeks Mateo Randhawa DO [STAFF PHYSICIAN] - Within 2 Weeks Disposition Disposition (needs filled in before D/C Order can be placed): Home, Self Care Documented by User: Dr. Lesvia Marrero MD 10/11/21 15:46 Allergies/Procedures Done in Hospital Allergies codeine Adverse Reaction (Verified 10/05/21 12:56) Other naproxen [From Naprosyn] Adverse Reaction (Verified 01/10/17 23:06) Other HEART RACES Discharge Plan Admission Admit Date/Time: 10/05/21 18:05 Primary Reason for Your Visit: Confusion Attending Provider: Lesvia Marrero Primary Care Provider: Calin Devries Consulting Providers: Nicola Edgar ; Jair Busby ; Yessica Bashir ; Turner Godfrey ; Raudel Gotti ; Kory Hanson ; Krystle Rogers ; Adama Granados ; Jane Steel ; Alina Ceballos ; Franchesca Cook ; Mana Lockhart CONSULTANT TEACHER ; Indra Clarke Discharge Orders/Prescriptions Prescriptions: New lactulose 20 gram/30 mL Solution 20 g PO TID Qty: 90 RF: 0 levofloxacin 500 mg tablet 500 mg PO DAILY Qty: 14 RF: 0 Continued latanoprost 1 DROP bottle 1 drp Each Eye QHS RF: 0 atorvastatin 80 MG tablet 40 mg PO QHS RF: 0 topiramate 25 MG tablet 25 mg PO QHS RF: 0 carbamazepine 200 MG tablet 200 mg PO BIDCM RF: 0 levothyroxine 150 MCG tablet 175 mcg PO MOTUWETHFR RF: 0 ibuprofen 200 MG tablet 400 mg PO Q6H PRN PRN (Reason: Mod-Severe (Pain Scale 6-10)) RF: 0 cholecalciferol (vitamin D3) 5,000 UNIT capsule 10,000 unit PO DAILY RF: 0 ziprasidone HCl 80 mg Capsule 80 mg PO BIDCM RF: 0 benztropine 0.5 mg Tablet 0.5 mg PO DINNER RF: 0 ziprasidone HCl 20 mg Capsule 20 mg PO BID RF: 0 pantoprazole 40 mg Tablet,Delayed Release (Dr/Ec) 40 mg PO DAILY RF: 0 benztropine 1 mg Tablet 1 mg PO DAILY RF: 0 oxybutynin chloride 5 mg Tablet Extended Release 24hr 10 mg PO DINNER RF: 0 Acidophilus Ex Str (L. sporog) 35 million- 25 million cell Tablet 1 tab PO DAILY RF: 0 potassium chloride 20 mEq Tablet Extended Release 20 meq PO TID RF: 0 levothyroxine 175 mcg Tablet 87.5 mcg PO SUSA RF: 0 sennosides [senna] 8.6 mg Tablet 8.6 mg PO BID RF: 0 promethazine 25 mg Tablet 25 mg PO Q6H PRN (Reason: Nausea) RF: 0 morphine [MS Contin] 15 mg Tablet Extended Release 15 mg PO Q12H PRN (Reason: Pain) RF: 0 mirtazapine 15 mg Tablet 15 mg PO QHS PRN (Reason: Insomnia) RF: 0 ursodiol 500 mg Tablet 500 mg PO BID RF: 0 Referrals / Follow Up: Calin Devries DO [Primary Care Provider] - Within 2 Weeks Kory Hanson DO [STAFF PHYSICIAN] - Within 2 Weeks Mateo Randhawa DO [STAFF PHYSICIAN] - Within 2 Weeks Disposition Disposition (needs filled in before D/C Order can be placed): Home, Self Care
--- NOTE | 2021-10-11 15:04 | DS.PCM_ITS ---
Documented by User: Darrell ZHENG 10/11/21 15:17 Providers Date of Admission: 10/05/21 Date of Discharge: 10/11/21 Primary Care Physician: Dr. Calin Devries, DO Consultations 10/05/21 18:33 Consult: Gastroenterology Routine Consulting Provider: [facility] Reason for Consult: Liver mass, cirrhosis EMERGENT Consult: No MD Notified: Yes Date Notified: 10/05/21 Time Notified: 18:12 Method of Notification: ED Physician Initiated 10/06/21 08:38 Consult: Oncology/Hematology Routine Consulting Provider: [facility] [place] Reason for Consult: liver mass EMERGENT Consult: No Notified: Yes Date Notified: 10/06/21 Time Notified: 08:38 Method of Notification: Verbal 10/10/21 15:09 Consult: Hospice / Palliative Care Routine Consulting Provider: [facility] Reason for Consult: billiary malignancy EMERGENT Consult: No MD Notified: Yes Date Notified: 10/10/21 Time Notified: 15:09 Method of Notification: per case management Reason For Visit: ACUTE ON CHRONIC CIRRHOSIS Diagnosis Discharge Diagnosis (1) Cholangiocarcinoma: Status: Acute Code(s): C22.1 - Intrahepatic bile duct carcinoma (2) Decompensated hepatic cirrhosis: Status: Acute Code(s): K72.90 - Hepatic failure, unspecified without coma; K74.60 - Unspecified cirrhosis of liver (3) Primary biliary cirrhosis: Status: Acute Code(s): K74.3 - Primary biliary cirrhosis Medications at Discharge Home Medications atorvastatin 40 mg PO QHS 01/11/15 carbamazepine 200 mg PO BIDCM 01/11/15 cholecalciferol (vitamin D3) 10,000 unit PO DAILY 01/11/15 ibuprofen 400 mg PO Q6H PRN PRN 01/11/15 latanoprost 1 drp EACH EYE QHS 01/11/15 levothyroxine 175 mcg PO MOTUWETHFR 01/11/15 topiramate 25 mg PO QHS 01/11/15 Acidophilus Ex Str (L. sporog) 1 tab PO DAILY 09/13/21 benztropine 0.5 mg PO DINNER 09/13/21 benztropine 1 mg PO DAILY 09/13/21 oxybutynin chloride 10 mg PO DINNER 09/13/21 pantoprazole 40 mg PO DAILY 09/13/21 potassium chloride 20 meq PO TID 09/13/21 ziprasidone HCl 20 mg PO BID 09/13/21 ziprasidone HCl 80 mg PO BIDCM 09/13/21 levothyroxine 87.5 mcg PO SUSA 10/05/21 mirtazapine 15 mg PO QHS PRN 10/05/21 morphine [MS Contin] 15 mg PO Q12H PRN 10/05/21 promethazine 25 mg PO Q6H PRN 10/05/21 sennosides [senna] 8.6 mg PO BID 10/05/21 ursodiol 500 mg PO BID 10/05/21 lactulose 20 g PO TID #90 ml 10/11/21 levofloxacin 500 mg PO DAILY #14 tab 10/11/21 Hospital Course Summary of Care Provided Minutes Spent on Discharge: 20 Hospital Course: Patient is a 61-year-old female who was admitted to [facility] on 10/05/2021 for evaluation and management of weakness, jaundice and confusion. Hospital course and management as below. 1)Primary biliary cirrhosis Patient underwent ERCP on 10/06 which resulted in dilation and stenting of the common bile duct and biliary sphincterotomy. GI was consulted on this patient throughout admission. There was some debate about whether to proceed forward with ERCP or further transhepatic percutaneous drainage, although patient and family have decided to proceed with hospice care. To establish hospice care before discharge. Patient is to continue Urosdiol therapy. 2) Cholangiocarcinoma Very extensive stricture noted on ERCP on 10/06. GI considering possible ERCP with spyglass versus percutaneous transhepatic [place] pancreatoscopy drainage. Evalutated by Heme/Onc on 10/07 and was deemed not to be a candidate for hemotherapy. Overall poor prognosis noted. Patient and family elected to go hospice as above. We will continue ursodiol therapy, lactulose and Levaquin per GI recommendation. 3) hyperammonemia Ammonia currently 60. Overall confusion seems to have been improved as patient is appropriately alert and oriented and able to interact appropriately. Continue lactulose 20 mg p.o. 3 times daily. 4) bipolar disorder Continue benztropine, carbamazepine, mirtazapine, topiramate and ziprasidone 5) hypothyroidism Continue Synthroid. 6) hyperlipidemia Continue statin. 7) overactive bladder Continue oxybutynin. 8) GERD Continue PPI. DVT prophylaxis- SCD's Patient seen by Darrell Mosqueda PA-C, under the supervision of Dr. Marrero. Time spent on patient care: 20 minutes. Physical Exam Narrative Patient is a 61-year-old female resting in bed, alert and orient x3. Patient mood seems slightly depressed, although she does not appear to be in any acute distress. Jaundice has returned throughout. Const alert, oriented x3 and no apparent distress HEENT normocephalic, head/scalp atraumatic and hearing grossly normal bilaterally Eyes PERRL, EOMs intact bilaterally and conjunctivae normal Neck no lymphadenopathy, supple and no JVD Resp normal respiratory effort, no retractions and no use of accessory muscles Cardio regular rate, regular rhythm and no JVD GI normal to inspection, nondistended, normoactive bowel sounds and soft to palpation Palpation: tender Extremity normal to inspection, full ROM and no clubbing, cyanosis or edema Skin no rashes or lesions noted, no wounds and skin turgor normal Skin Narrative: Jaundice throughout. Neuro CN's II-XII intact bilaterally Psych affect normal Weight / BMI Weight Weight: 200 lb Body Mass Index (BMI) 31.2 ABG / Lab / Microbiology Data Result Diagrams: 10/10/21 06:05 10/10/21 06:05 Microbiology: Microbiology 10/06/21 16:25 Blood Culture (Wb) - Right Hand Blood Culture - Preliminary No growth in 48 hours. 10/06/21 16:17 Blood Culture (Wb) - Anticubital Right Blood Culture - Preliminary No growth in 48 hours. 10/06/21 08:55 Nasal Secretion SARS-CoV-2 Antigen (Rapid) - Final Meaningful Use Info Meaningful Use Diagnoses (Choose all that apply): None applicable Discharge Plan Admission Admit Date/Time: 10/05/21 18:05 Primary Reason for Your Visit: Confusion Attending Provider: Lesvia Marrero Primary Care Provider: Calin Devries Consulting Providers: Nicola Edgar ; Jair Busby ; Yessica Bashir ; Turner Godfrey ; Raudel Gotti ; Kory Hanson ; Krystle Rogers ; Adama Granados ; Jane Steel ; Alina Ceballos ; Franchesca Cook ; Mana Lockhart NP ; Indra Clarke Discharge Orders/Prescriptions Prescriptions: New lactulose 20 gram/30 mL Solution 20 g PO TID Qty: 90 RF: 0 levofloxacin 500 mg tablet 500 mg PO DAILY Qty: 14 RF: 0 Continued latanoprost 1 DROP bottle 1 drp Each Eye QHS RF: 0 atorvastatin 80 MG tablet 40 mg PO QHS RF: 0 topiramate 25 MG tablet 25 mg PO QHS RF: 0 carbamazepine 200 MG tablet 200 mg PO BIDCM RF: 0 levothyroxine 150 MCG tablet 175 mcg PO MOTUWETHFR RF: 0 ibuprofen 200 MG tablet 400 mg PO Q6H PRN PRN (Reason: Mod-Severe (Pain Scale 6-10)) RF: 0 cholecalciferol (vitamin D3) 5,000 UNIT capsule 10,000 unit PO DAILY RF: 0 ziprasidone HCl 80 mg Capsule 80 mg PO BIDCM RF: 0 benztropine 0.5 mg Tablet 0.5 mg PO DINNER RF: 0 ziprasidone HCl 20 mg Capsule 20 mg PO BID RF: 0 pantoprazole 40 mg Tablet,Delayed Release (Dr/Ec) 40 mg PO DAILY RF: 0 benztropine 1 mg Tablet 1 mg PO DAILY RF: 0 oxybutynin chloride 5 mg Tablet Extended Release 24hr 10 mg PO DINNER RF: 0 Acidophilus Ex Str (L. sporog) 35 million- 25 million cell Tablet 1 tab PO DAILY RF: 0 potassium chloride 20 mEq Tablet Extended Release 20 meq PO TID RF: 0 levothyroxine 175 mcg Tablet 87.5 mcg PO SUSA RF: 0 sennosides [senna] 8.6 mg Tablet 8.6 mg PO BID RF: 0 promethazine 25 mg Tablet 25 mg PO Q6H PRN (Reason: Nausea) RF: 0 morphine [MS Contin] 15 mg Tablet Extended Release 15 mg PO Q12H PRN (Reason: Pain) RF: 0 mirtazapine 15 mg Tablet 15 mg PO QHS PRN (Reason: Insomnia) RF: 0 ursodiol 500 mg Tablet 500 mg PO BID RF: 0 Referrals / Follow Up: Calin Devries DO [Primary Care Provider] - Within 2 Weeks Kory Hanson DO [STAFF PHYSICIAN] - Within 2 Weeks Mateo Randhawa DO [STAFF PHYSICIAN] - Within 2 Weeks Disposition Disposition (needs filled in before D/C Order can be placed): Home, Self Care Documented by User: Dr. Lesvia Marrero MD 10/11/21 15:45 Providers Date of Admission: 10/05/21 Reason For Visit: ACUTE ON CHRONIC CIRRHOSIS Medications at Discharge Home Medications atorvastatin 40 mg PO QHS 01/11/15 carbamazepine 200 mg PO BIDCM 01/11/15 cholecalciferol (vitamin D3) 10,000 unit PO DAILY 01/11/15 ibuprofen 400 mg PO Q6H PRN PRN 01/11/15 latanoprost 1 drp EACH EYE QHS 01/11/15 levothyroxine 175 mcg PO MOTUWETHFR 01/11/15 topiramate 25 mg PO QHS 01/11/15 Acidophilus Ex Str (L. sporog) 1 tab PO DAILY 09/13/21 benztropine 0.5 mg PO DINNER 09/13/21 benztropine 1 mg PO DAILY 09/13/21 oxybutynin chloride 10 mg PO DINNER 09/13/21 pantoprazole 40 mg PO DAILY 09/13/21 potassium chloride 20 meq PO TID 09/13/21 ziprasidone HCl 20 mg PO BID 09/13/21 ziprasidone HCl 80 mg PO BIDCM 09/13/21 levothyroxine 87.5 mcg PO SUSA 10/05/21 mirtazapine 15 mg PO QHS PRN 10/05/21 morphine [MS Contin] 15 mg PO Q12H PRN 10/05/21 promethazine 25 mg PO Q6H PRN 10/05/21 sennosides [senna] 8.6 mg PO BID 10/05/21 ursodiol 500 mg PO BID 10/05/21 lactulose 20 g PO TID #90 ml 10/11/21 levofloxacin 500 mg PO DAILY #14 tab 10/11/21 ABG / Lab / Microbiology Data Result Diagrams: 10/10/21 06:05 10/10/21 06:05 Discharge Plan Admission Admit Date/Time: 10/05/21 18:05 Primary Reason for Your Visit: Confusion Attending Provider: Lesvia Marrero Primary Care Provider: Calin Devries Consulting Providers: Nicola Edgar ; Jair Busby ; Yessica Bashir ; Turner Godfrey ; Raudel Gotti ; Kory Hanson ; Krystle Rogers ; Adama Granados ; Jane Steel ; Alina Ceballos ; Franchesca Cook ; Mana Lockhart NP ; Indra Clarke Discharge Orders/Prescriptions Prescriptions: New lactulose 20 gram/30 mL Solution 20 g PO TID Qty: 90 RF: 0 levofloxacin 500 mg tablet 500 mg PO DAILY Qty: 14 RF: 0 Continued latanoprost 1 DROP bottle 1 drp Each Eye QHS RF: 0 atorvastatin 80 MG tablet 40 mg PO QHS RF: 0 topiramate 25 MG tablet 25 mg PO QHS RF: 0 carbamazepine 200 MG tablet 200 mg PO BIDCM RF: 0 levothyroxine 150 MCG tablet 175 mcg PO MOTUWETHFR RF: 0 ibuprofen 200 MG tablet 400 mg PO Q6H PRN PRN (Reason: Mod-Severe (Pain Scale 6-10)) RF: 0 cholecalciferol (vitamin D3) 5,000 UNIT capsule 10,000 unit PO DAILY RF: 0 ziprasidone HCl 80 mg Capsule 80 mg PO BIDCM RF: 0 benztropine 0.5 mg Tablet 0.5 mg PO DINNER RF: 0 ziprasidone HCl 20 mg Capsule 20 mg PO BID RF: 0 pantoprazole 40 mg Tablet,Delayed Release (Dr/Ec) 40 mg PO DAILY RF: 0 benztropine 1 mg Tablet 1 mg PO DAILY RF: 0 oxybutynin chloride 5 mg Tablet Extended Release 24hr 10 mg PO DINNER RF: 0 Acidophilus Ex Str (L. sporog) 35 million- 25 million cell Tablet 1 tab PO DAILY RF: 0 potassium chloride 20 mEq Tablet Extended Release 20 meq PO TID RF: 0 levothyroxine 175 mcg Tablet 87.5 mcg PO SUSA RF: 0 sennosides [senna] 8.6 mg Tablet 8.6 mg PO BID RF: 0 promethazine 25 mg Tablet 25 mg PO Q6H PRN (Reason: Nausea) RF: 0 morphine [MS Contin] 15 mg Tablet Extended Release 15 mg PO Q12H PRN (Reason: Pain) RF: 0 mirtazapine 15 mg Tablet 15 mg PO QHS PRN (Reason: Insomnia) RF: 0 ursodiol 500 mg Tablet 500 mg PO BID RF: 0 Referrals / Follow Up: Calin Devries DO [Primary Care Provider] - Within 2 Weeks Kory Hanson DO [STAFF PHYSICIAN] - Within 2 Weeks Mateo Randhawa DO [STAFF PHYSICIAN] - Within 2 Weeks Disposition Disposition (needs filled in before D/C Order can be placed): Home, Self Care Charges/Coding Addendum Addendum: Patient seen by Darrell Mosqueda PA-C under my supervision Patient is a 61 y/o female with a PMh as outlined who was admitted with a complaint of weakness and jaundice as well as altered mental status. Gastroenterology was consulted and patient had ERCP which showed extensive stricture with dilatation and stenting of the common bile duct and biliary sphincterectomy. She had recently been diagnosed with adenocarcinoma of the liver and was being worked up on outpatient basis. Of note, MRCP done showed mild hepatosplenomegaly with suspected infiltrative mass in the jeremy hepatic and left lobe as well as portal vein thrombosis. Patient was counseled by onc ology about the poor prognosis and patient opted for change of CODE STATUS to DNR CC and stopping all treatment. Hospice was therefore consulted. Patient was also placed on ursodiol and lactulose as her ammonia was elevated. Patient was discharged to half-way facility on 10/11/2021, to follow-up with hospice in the assisted. Patient was seen and examined prior to discharge. Her daughter was by her bedside. Patient again affirmed that she wished to be DNR CCA and to go to hospice as her oncologist had told her she had about 3 to 6 months to live. Review of systems otherwise negative labs and vitals reviewed. Home medication reviewed and reconciled. O/E: Const alert, oriented x3 and no apparent distress HEENT normocephalic, head/scalp atraumatic and hearing grossly normal bilaterally Eyes PERRL, EOMs intact bilaterally and conjunctivae normal Neck no lymphadenopathy, supple and no JVD Resp normal respiratory effort, no retractions and no use of accessory muscles Cardio regular rate, regular rhythm and no JVD GI normal to inspection, nondistended, normoactive bowel sounds and soft to palpation Palpation: tender Extremity normal to inspection, full ROM and no clubbing, cyanosis or edema Skin no rashes or lesions noted, no wounds and skin turgor normal, deeply jaundiced skin Neuro CN's II-XII intact bilaterally Psych affect normal Plan is for discharge to SNF to establish care with hospice there. Rest as per Darrell Mosqueda PA-C's note, which I have reviewed and endorsed. Total time I spent on the care of the patient today was 25 minutes with Darrell Mosqueda spending 20 minutes making a total of 45 minutes. Visit Charges Inpatient E&M: [id number] Disch Hosp
--- NOTE | 2021-10-11 16:22 | CASEMGMT ---
Social Work Call from [facility] stating they can accept pt today. [facility] met with pt and dgt today and pt signed papers for services. Physician updated and feels pt is ready for discharge. Pt to be transferred to [facility] today and hospice nurse will meet pt at [facility]. SW informed pt and dgt and agreeable to discharge plan. PASRR completed in [facility]. Orders faxed to [facility]. Transportation arranged with [facility] for 6:00 pickup via [facility]. [facility] and Hospice notified of discharge time. Nursing updated. Plan: [facility], intermediate level of care with hospice services FLORIN Oliver
== END 2021-10-11 19:13 | disposition hospice, inpatient (51) ==
LOC: ED 13:38 → MS3 18:08
PROVIDERS: Anesthesiology; Hospitalist; Internal Medicine Gastroenterology; Nurse Practitioner Family; Physician Assistant; Admitting Provider Internal Medicine; Emergency Provider Student in an Organized Health Care Education/Training Program; PCP Student in an Organized Health Care Education/Training Program; Visit Provider Student in an Organized Health Care Education/Training Program
PROC: 0FC98ZZ Extirpation of Matter from Common Bile Duct, Via Natural or Artificial Opening Endoscopic (ICD-10-PCS; CPT 43260; principal; 2021-10-06 11:10)
DX: K74.3 Primary biliary cirrhosis (principal); I81 Portal vein thrombosis; G92.8 Other toxic encephalopathy; K75.0 Abscess of liver; K72.90 Hepatic failure, unspecified without coma; K83.1 Obstruction of bile duct; C22.1 Intrahepatic bile duct carcinoma; I47.2 Ventricular tachycardia; F31.9 Bipolar disorder, unspecified; D69.6 Thrombocytopenia, unspecified; E03.9 Hypothyroidism, unspecified; E78.5 Hyperlipidemia, unspecified; K75.81 Nonalcoholic steatohepatitis (NASH); K21.9 Gastro-esophageal reflux disease without esophagitis; N32.81 Overactive bladder; Z87.891 Personal history of nicotine dependence; Z66 Do not resuscitate; Z79.899 Other long term (current) drug therapy; Z79.890 Hormone replacement therapy
CPT/HCPCS: 36415; 71275; 74018; 74174; 74181; 74328; 76000; 80048; 80053; 80076; 80202; 81001; 82140; 83690; 83735; 84100; 84439; 84443; 84481; 85025; 85610; 85730; 87040; 87426; 87811; 88108; 88305; 88313; 88341; 88342; 93005; 97110; 97162; 97166; 97530; 97535; 99251; 99285; 99406; J7040; J7050; J7120; Q9967; A4216; C1726; G0463; J2405; J3490